=== PATIENT | female | born 1995 | race Caucasian/White ===

== ENCOUNTER 2017-04-28 19:25 | Emergency (ER) | payer SELFPAY ==
[2017-04-28 19:38] VITALS: BP 115/73
--- NOTE | 2017-04-28 20:41 | EDM.PDOC ---
ED HPI GENERAL MEDICAL PROBLEM - General Chief Complaint: ECG TECHNICIAN Problem Stated Complaint: DISCHARGE Time Seen by Provider: 04/28/17 19:45 Source of Information: Reports: Patient History Limitations: Reports: No Limitations - History of Present Illness INITIAL COMMENTS - FREE TEXT/NARRATIVE: 21-year-old female presents for evaluation and treatment of brown vaginal discharge. Patient reports that she first noted discharge about an hour prior to arrival in the ER. She estimates that it is around 1 teaspoon, maybe a little more. She reports that the first time she went she appreciates some brown discharge. She says the second time she wiped she appreciated more of a light pink discharge. She is proximally 9 weeks . She is a . Her blood type is O-. She denies any abdominal pain, cramping, dysuria, fevers, cold symptoms. Dr. Perez is her ECG TECHNICIAN. She had a Quant done on 04/13/17, which was [phone]. She also had an early OB ultrasound reports that everything looked okay. - Related Data Allergies Allergy/AdvReac Type Severity Reaction Status Date / Time amoxicillin [Amoxicillin] Allergy Hives Verified 04/28/17 19:38 Home Meds: Home Meds Vit W-Ca,Fe,FA(<1 mg) [ Vitamins] 1 each PO DAILY 12/02/15 [ History] Cephalexin [Keflex] 500 mg PO Q6HR #20 cap 04/28/17 [Rx] Past Medical History - Past Health History Medical/Surgical History: Denies Medical/Surgical History Psychiatric History: Reports: None - Past Surgical History HEENT Surgical History: Reports: Oral Surgery, Tonsillectomy Social & Family History - Tobacco Use Smoking Status *Q: Never Smoker Second Hand Smoke Exposure: No - Caffeine Use Caffeine Use: Reports: None - Recreational Drug Use Recreational Drug Use: No ED ROS GENERAL - Review of Systems Review Of Systems: See Below Constitutional: Denies: Fever Respiratory: Denies: Cough GI/Abdominal: Reports: Other. Denies: Abdominal Pain : Reports: Other (reports brown, red vaginal discharge). Denies: Dysuria ED EXAM - Physical Exam Exam: See Below Exam Limited By: No Limitations General Appearance: Alert, WD/WN, No Apparent Distress Respiratory/Chest: No Respiratory Distress, Lungs Clear, Normal Breath Sounds Cardiovascular: Normal Peripheral Pulses, Regular Rate, Rhythm, No Murmur GI/Abdominal Exam: Normal Bowel Sounds, Soft, Non-Tender (Female) Exam: Normal External Exam, Vaginal Discharge (white). No: Cervical Dilatation, Products of Conception, Vaginal Bleeding Heart Tones: Present Neurological: Alert, Oriented, Normal Cognition Psychiatric: Normal Affect, Normal Mood Skin Exam: Warm, Dry, Normal Color Course - Vital Signs Last Recorded V/S: Last Vital Signs Temp 36.2 C 04/28/17 19:36 Pulse 90 04/28/17 19:36 Resp 16 04/28/17 19:36 BP 115/73 04/28/17 19:36 Pulse Ox 100 04/28/17 19:36 - Orders/Labs/Meds Labs: Laboratory Tests 04/28/17 04/28/17 04/28/17 Range/Units 20:06 20:15 20:30 HCG, Quant 999847.0 mIU/mL Urine Color Yellow (Yellow) Urine Appearance Clear (Clear) Urine pH 6.0 (5.0-8.0) Ur Specific Smoot > or = 1.030 (1.005-1.030) Urine Protein Trace H (Negative) Urine Glucose (UA) Negative (Negative) Urine Ketones 3+ H (Negative) Urine Occult Blood Trace-intact H (Negative) Urine Nitrite Negative (Negative) Urine Bilirubin Negative (Negative) Urine Urobilinogen 2.0 H (0.2-1.0) Ur Leukocyte Esterase Trace H (Negative) Urine RBC 0-5 (0-5) /hpf Urine WBC 5-10 H (0-5) /hpf Ur Epithelial Cells 10-20 H (0-5) /hpf Urine Bacteria Many H (FEW) /hpf Urine Mucus Few (FEW) /hpf Blood Type O NEGATIVE Gel Antibody Screen Negative Rhogam Indicated Yes - Radiology Interpretation Free Text/Narrative:: Transvaginal ultrasound impression per Dr. Santiago: 1. single intrauterine gestation. Dates as noted above. 2. Heart activity is 172 bpm. - Re-Assessments/Exams Free Text/Narrative Re-Assessment/Exam: 04/28/17 22:47 I discussed the case with Dr. Stinson. He recommended I consult Dr. German, OB bell spinner sousaphones to see if we need to give Rhogram. I discussed the case with Dr. German. I informed her of her previous miscarriage and her current . She did not feel that we needed to give RhoGAM tonight. I informed the patinet of her wet prep, ultrasound and UA results. Wet prep showed no abnormalities. I will start her on some cephalexin for the urinary tract infection. I'll have follow-up with OB. Discharge instructions as documented. Departure - Departure Time of Disposition: 22:48 Disposition: Home, Self-Care 01 Condition: Good Clinical Impression: Urinary tract infection, Vaginal discharge during in first trimester - Discharge Information Prescriptions: Cephalexin [Keflex] 500 mg PO Q6HR #20 cap Instructions: Urinary Tract Infection, Adult Referrals: Carloz Perez MD [Primary Care Provider] - Forms: ED Department Discharge Additional Instructions: Take the Keflex 1 tab every 6 hours for 5 days. Recommend you are drinking plenty of fluids. Drink about half your body weight in ounces every day. Follow-up with your ECG TECHNICIAN provider early next week for recheck of your symptoms. Feel free to contract Dr. Perez's office tomorrow if you have any additional concerns about rhogram. Please return to the ER if your Symptoms change or worsen.
--- NOTE | 2017-04-28 21:41 | US ---
Addendum: Please ignore previous report, previous report is for older ultrasound. At time of dictation I did not have the current exam. Following is the corrected report. Dates: LMP: LMP given as 02/23/17, DISHA 11/30/17, gestational age 9 weeks 1 day Current ultrasound: DISHA 12/02/17, gestational age 8 weeks 6 days Single intrauterine gestation is seen. Amniotic fluid volume is normal. Embryo and yolk sac are seen. Small amount of free fluid is seen within the cul-de-sac. Minimal fluid is seen within the endocervical canal which is felt to be incidental. Maternal ovaries are seen and appear within normal limits. Measurements: [place]-rump length: 2.20 cm - 8 weeks 6 days Heart rate: 172 bpm Impression: 1. Single intrauterine gestation. Dates as noted above. 2. Heart activity is seen. Diagnostic code #2 --- Addendum1 above dictated on [04/28/2017 21:51] by [Tito Santiago, Alexandro Bishop] --- --- Addendum1 above signed on [04/28/2017 21:52] by [Tito Santiago, Alexandro Bishop] --- --- Original report below dictated on [04/28/2017 21:37] by [Tito Santiago, Alexandro Bishop] --- --- Original report below signed on [04/28/2017 21:37] by [Tito Santiago, Alexandro Bishop] --- First trimester obstetrical ultrasound: Multiple real-time images were obtained transvaginally. Comparison: No previous study. Dates: LMP: LMP given as 09/19/15, DISHA 06/25/16, gestational age 10 weeks 4 days Current ultrasound: DISHA 07/23/16, gestational age 6 weeks 4 days Single intrauterine gestation is seen. Embryo and yolk sac are seen. Debris is identified within the gestational sac. No heart activity is seen at this time. There is some fluid being seen within the endocervical canal. Small subchorionic hemorrhage is seen. Left maternal ovary is not seen. Right maternal ovary appears within normal limits. Measurements: [place]-rump length: 0.64 cm - 6 weeks 3 days Impression: 1. Single intrauterine gestation. Dates as noted above. 2. No heart activity is seen. Recommend follow-up study in 11 days if patient does not miscarry to further evaluate. 3. Other incidental findings as noted above. Diagnostic code #3 --- Addendum1 signed ---
== END 2017-04-28 22:58 | disposition home or self-care (01) ==
LOC: JD.ED 19:25
DX: O23.41 Unspecified infection of urinary tract in pregnancy, first trimester (principal); O99.89 Other specified diseases and conditions complicating pregnancy, childbirth and the puerperium; N89.8 Other specified noninflammatory disorders of vagina; Z88.1 Allergy status to other antibiotic agents; Z98.890 Other specified postprocedural states; Z3A.09 9 weeks gestation of pregnancy
CPT/HCPCS: 36415; 76817; 76817-26; 81001; 84702; 86850; 86900; 86901; 87086; 87210; 87808; 99284; 99284-25

== ENCOUNTER 2017-06-14 02:20 | Emergency (ER) | payer SELFPAY ==
[2017-06-14 02:35] VITALS: BP 111/68
[2017-06-14] MEDS ORDERED: Ondansetron 4 MG/2 ML SDV IVPUSH ONE (02:43)
[2017-06-14] MEDS ORDERED: Sodium Chloride 0.9% 500 ML IV ONE (02:43)
[2017-06-14] MEDS ORDERED: HYDROmorphone 0.5 MG/0.5 ML Syringe IVPUSH ONE (02:43)
[2017-06-14] MEDS ORDERED: Sodium Chloride 0.9% 10 ML Syringe FLUSH PRN (02:43)
--- NOTE | 2017-06-14 02:47 | EDM.PDOC ---
ED HPI GENERAL MEDICAL PROBLEM - General Chief Complaint: Abdominal Pain Stated Complaint: ABDOMINAL PAINS Time Seen by Provider: 06/14/17 02:35 Source of Information: Reports: Patient, RN Notes Reviewed - History of Present Illness INITIAL COMMENTS - FREE TEXT/NARRATIVE: 22-year-old female comes in after experiencing sudden onset of abdominal pain about one hour ago. Pain is been primarily upper mid abdomen but with radiation to her back. Awakened her from sleep. The pain initially was extremely severe associated with some nausea. She now has vomited twice while in to the ED with the discomfort somewhat less but still quite bothersome. She was feeling fine yesterday and last evening with no abdominal discomfort whatsoever. She is about 15 weeks . She is 2 para 1, is gone well for her so 4. No lower abdominal or pelvic pain cramping or bleeding. Epigastric Pain Score (Numeric/FACES): 8 - Related Data Allergies Allergy/AdvReac Type Severity Reaction Status Date / Time amoxicillin [Amoxicillin] Allergy Hives Verified 06/14/17 02:34 Home Meds: Home Meds Vit W-Ca,Fe,FA(<1 mg) [ Vitamins] 1 each PO DAILY 12/02/15 [ History] Past Medical History - Past Health History Medical/Surgical History: Denies Medical/Surgical History Psychiatric History: Reports: None - Past Surgical History HEENT Surgical History: Reports: Oral Surgery, Tonsillectomy Social & Family History - Tobacco Use Smoking Status *Q: Never Smoker Second Hand Smoke Exposure: No - Caffeine Use Caffeine Use: Reports: None - Recreational Drug Use Recreational Drug Use: No ED ROS GENERAL - Review of Systems Review Of Systems: See Below Constitutional: Denies: Fever, Chills HEENT: Reports: No Symptoms Respiratory: Denies: Shortness of Breath, Pleuritic Chest Pain Cardiovascular: Denies: Chest Pain GI/Abdominal: Reports: Abdominal Pain (Upper abdomen), Nausea, Vomiting. Denies : Diarrhea : Denies: Dysuria Musculoskeletal: Reports: Back Pain (Now better) Skin: Reports: No Symptoms Neurological: Reports: No Symptoms ED EXAM, GI/ABD - Physical Exam Exam: See Below General Appearance: Alert, Mild Distress Eyes: Bilateral: Normal Appearance Throat/Mouth: Normal Inspection, Normal Oropharynx Neck: Supple, Full Range of Motion Respiratory/Chest: No Respiratory Distress, Lungs Clear, Normal Breath Sounds Cardiovascular: Regular Rate, Rhythm GI/Abdominal Exam: Tender (Mild tenderness upper mid abdomen, abdomen otherwise soft and nontender). No: Guarding, Rebound Back Exam: No: CVA Tenderness (L), CVA Tenderness (R) Extremities: Normal Inspection, Normal Range of Motion Neurological: Alert, Oriented, No Motor/Sensory Deficits Skin Exam: Warm, Dry, Normal Color Course - Vital Signs Last Recorded V/S: Last Vital Signs Temp 98 F 06/14/17 02:31 Pulse 76 06/14/17 02:31 Resp 18 06/14/17 02:31 BP 111/68 06/14/17 02:31 Pulse Ox 100 06/14/17 02:31 - Orders/Labs/Meds Orders: Active Orders 24 hr Category Date Time Status Peripheral IV Care [RC] . DIRECTED Care 06/14/17 02:43 Active Sodium Chloride 0.9% [Saline Flush] Med 06/14/17 02:43 Active 10 ml FLUSH ASDIRECTED PRN Peripheral IV Insertion Adult [OM.PC] Stat Oth 06/14/17 02:43 Ordered Medication Orders Sodium Chloride (Saline Flush) 10 ml FLUSH ASDIRECTED PRN PRN Reason: Keep Vein Open Last Admin: 06/14/17 03:03 Dose: 10 ml Labs: Laboratory Tests 06/14/17 06/14/17 Range/Units 02:50 02:50 WBC 6.06 (3.98-10.04) K/mm3 RBC 4.15 (3.98-5.22) M/mm3 Hgb 11.8 (11.2-15.7) gm/L Hct 33.9 L (34.1-44.9) % MCV 81.7 (79.4-94.8) fl MCH 28.4 (25.6-32.2) pg MCHC 34.8 (32.2-35.5) g/dl RDW Std Deviation 40.0 (36.4-46.3) fL Plt Count 128 L (182-369) K/mm3 MPV 12.6 H (9.4-12.3) fl Neut % (Auto) 59.9 (34.0-71.1) % Lymph % (Auto) 31.0 (19.3-51.7) % [place] % (Auto) 7.9 (4.7-12.5) % Eos % (Auto) 0.8 (0.7-5.8) Baso % (Auto) 0.2 (0.1-1.2) % Neut # (Auto) 3.63 (1.56-6.13) K/mm3 Lymph # (Auto) 1.88 (1.18-3.74) K/mm3 [place] # (Auto) 0.48 H (0.24-0.36) K/mm3 Eos # (Auto) 0.05 (0.04-0.36) K/mm3 Baso # (Auto) 0.01 (0.01-0.08) K/mm3 Sodium 138 (136-145) mEq/L Potassium 3.6 (3.5-5.1) mEq/L Chloride 104 (98-107) mEq/L Carbon Dioxide 25 (21-32) mEq/L Anion Gap 12.6 (5-15) BUN 7 (7-18) mg/dL Creatinine 0.7 (0.55-1.02) mg/dL Est Cr Clr Drug Dosing 114.40 mL/min Estimated GFR (MDRD) > 60 (>60) mL/min BUN/Creatinine Ratio 10.0 L (14-18) Glucose 104 (74-106) mg/dL Calcium 8.9 (8.5-10.1) mg/dL Total Bilirubin 0.5 (0.2-1.0) mg/dL AST 18 (15-37) U/L ALT 18 (14-59) U/L Alkaline Phosphatase 57 (46-116) U/L Total Protein 6.3 L (6.4-8.2) g/dl Albumin 2.9 L (3.4-5.0) g/dl Globulin 3.4 gm/dL Albumin/Globulin Ratio 0.9 L (1-2) Lipase 108 (73-393) U/L Meds: Medications Generic Name Dose Route Start Last Admin Trade Name Freq PRN Reason Stop Dose Admin Sodium Chloride 10 ml 06/14/17 02:43 06/14/17 03:03 Saline Flush FLUSH 10 ml ASDIRECTED PRN Administration Keep Vein Open Discontinued Medications Generic Name Dose Route Start Last Admin Trade Name Freq PRN Reason Stop Dose Admin Hydromorphone HCl 0.25 mg 06/14/17 02:43 06/14/17 03:01 Dilaudid IVPUSH 06/14/17 02:44 0.25 mg ONETIME ONE Administration Sodium Chloride 500 mls @ 999 mls/hr 06/14/17 02:43 06/14/17 03:00 Normal Saline IV 06/14/17 03:13 999 mls/hr .BOLUS ONE Administration Ondansetron HCl 2 mg 06/14/17 02:43 06/14/17 03:00 Zofran IVPUSH 06/14/17 02:44 2 mg ONETIME ONE Administration - Re-Assessments/Exams Free Text/Narrative Re-Assessment/Exam: 06/14/17 03:44 Labs look good, pain is gone, nausea is gone, she feels tremendously better, discharge instructions as documented Departure - Departure Time of Disposition: 03:43 Disposition: Home, Self-Care 01 Condition: Fair Clinical Impression: Abdominal pain Qualifiers: Abdominal location: upper abdomen, unspecified Qualified Code(s): R10.10 - Upper abdominal pain, unspecified Vomiting Qualifiers: Vomiting type: unspecified Vomiting Intractability: non-intractable Nausea presence: with nausea Qualified Code(s): R11.2 - Nausea with vomiting, unspecified - Discharge Information Referrals: Carloz Perez MD [Primary Care Provider] - Forms: ED Department Discharge Additional Instructions: Clear liquids until this afternoon, than very careful bland diet as tolerated, follow-up clinic as needed, return to ED as needed if symptoms worsening in any way - My Orders Last 24 Hours: My Active Orders 06/14/17 02:43 Peripheral IV Care [RC] . DIRECTED Sodium Chloride 0.9% [Saline Flush] 10 ml FLUSH ASDIRECTED PRN Peripheral IV Insertion Adult [OM.PC] Stat - Assessment/Plan Last 24 Hours: My Active Orders 06/14/17 02:43 Peripheral IV Care [RC] . DIRECTED Sodium Chloride 0.9% [Saline Flush] 10 ml FLUSH ASDIRECTED PRN Peripheral IV Insertion Adult [OM.PC] Stat
== END 2017-06-14 03:54 | disposition home or self-care (01) ==
LOC: JD.ED 02:20
DX: R10.10 Upper abdominal pain, unspecified (principal); R11.2 Nausea with vomiting, unspecified; Z88.1 Allergy status to other antibiotic agents
CPT/HCPCS: 36415; 80053; 83690; 85025; 96361; 96374; 96375; 99284; J1170; J2405; J7040; J7050

== ENCOUNTER 2017-09-19 20:26 | Emergency (ER) | payer SELFPAY ==
[2017-09-19 20:36] VITALS: BP 101/72
--- NOTE | 2017-09-19 20:45 | EDM.PDOC ---
ED HPI GENERAL MEDICAL PROBLEM - General Chief Complaint: Lower Extremity Injury/Pain Stated Complaint: POSS KNEE INJURY Time Seen by Provider: 09/19/17 20:39 Source of Information: Reports: Patient History Limitations: Reports: No Limitations - History of Present Illness INITIAL COMMENTS - FREE TEXT/NARRATIVE: 22-year-old female presents the ED with an acute injury to her left knee. She reports she was just walking into the home when her 65 pound dog jumped or ran into her. Struck her from the lateral aspect of the knee causing a valgus strain of the left knee. This in turn knocked her to the fourth floor on her back. Injury occurred about a half or before arriving in the ED. Patient can partially wakeboard bare tippytoe walking on the left foot. Previous injuries or surgery to the left knee have occurred. Of note she is in the last trimester at 30 weeks gestation. Onset: Today Onset Date: 09/19/17 Onset Time: 20:15 Duration: Minutes: Location: Reports: Lower Extremity, Left (Left medial knee.) Quality: Reports: Ache, Throbbing Severity: Moderate Improves with: Reports: Rest Worsens with: Reports: Movement Context: Reports: Trauma (Knocked over by a large dog with that was running. Restraint the knee.). Denies: Activity, Exercise, Lifting, Sick Contact Associated Symptoms: Reports: No Other Symptoms Treatments PROCUREMENT ACCOUNTANT: Reports: Cold Therapy, Other (see below) Other Treatments PROCUREMENT ACCOUNTANT: tylenol Left Knee Pain Score (Numeric/FACES): 8 - Related Data Allergies Allergy/AdvReac Type Severity Reaction Status Date / Time amoxicillin [Amoxicillin] Allergy Hives Verified 06/14/17 02:34 Home Meds: Home Meds Vit W-Ca,Fe,FA(<1 mg) [ Vitamins] 1 each PO DAILY 12/02/15 [ History] oxyCODONE HCl/Acetaminophen [Percocet 5-325 mg Tablet] 1 - 2 each PO Q4H PRN # 12 tablet 09/19/17 [Rx] Past Medical History - Past Health History Medical/Surgical History: Denies Medical/Surgical History Psychiatric History: Reports: None - Past Surgical History HEENT Surgical History: Reports: Oral Surgery, Tonsillectomy Social & Family History - Tobacco Use Smoking Status *Q: Never Smoker Second Hand Smoke Exposure: No - Caffeine Use Caffeine Use: Reports: None - Recreational Drug Use Recreational Drug Use: No - Living Situation & Occupation Living situation: Reports: Occupation: Unemployed Review of Systems - Review of Systems Review Of Systems: See Below Constitutional: Denies: Chills, Diaphoresis, Fever, Weakness, Other Eyes: Reports: No Symptoms Ears: Reports: No Symptoms Nose: Reports: No Symptoms Mouth/Throat: Reports: No Symptoms Respiratory: Reports: No Symptoms Cardiovascular: Reports: No Symptoms GI/Abdominal: Reports: No Symptoms Genitourinary: Reports: No Symptoms Musculoskeletal: Reports: Other (Injury to the left knee. See history of present illness) Skin: Reports: No Symptoms Neurological: Reports: No Symptoms Psychiatric: Reports: No Symptoms ED EXAM, GENERAL - Physical Exam Exam: See Below Exam Limited By: No Limitations General Appearance: Alert, WD/WN, Mild Distress GI/Abdominal: Normal Bowel Sounds, Soft, Non-Tender, No Organomegaly, Other ( Patient is 30 weeks gestation and this correlates clinically with a fundus of the uterus 6 cm above the umbilicus.) Extremities: Other (Examination of the left lower extremity shows no effusion of the knee joint. Patellofemoral movement is normal. She is able to flex the knee but with difficulty and pain. You should ligaments appear to be intact. I was able to stress both the LCL and MCL ligaments in the straight leg position as well as 30 flexion. I could not open up the joint at all. Possible grade 1 strain of the MCL) Neurological: Alert (.), Oriented, CN II-XII Intact, Normal Cognition, Normal Gait Psychiatric: Normal Affect, Normal Mood Skin Exam: Warm, Dry, Intact, Normal Color, No Rash Course - Vital Signs Last Recorded V/S: Last Vital Signs Temp 36.9 C 09/19/17 20:35 Pulse 89 09/19/17 20:35 Resp 20 09/19/17 20:35 BP 101/72 09/19/17 20:35 Pulse Ox 100 09/19/17 20:35 - Orders/Labs/Meds Orders: Active Orders 24 hr Category Date Time Status Knee 3V Lt [CR] Stat Exams 09/19/17 20:42 Taken Durable Medical Equipment for Discharge [DME for Oth 09/19/17 21:07 Ordered Discharge] [COMM] Stat Meds: Medications Discontinued Medications Generic Name Dose Route Start Last Admin Trade Name Freq PRN Reason Stop Dose Admin Oxycodone/Acetaminophen 2 tab 09/19/17 21:05 Percocet 325-5 Mg PO 09/19/17 21:06 ONETIME ONE - Radiology Interpretation Free Text/Narrative:: 22-year-old female who is in the third trimester at 30 weeks gestation presents the ED with an acute injury to her left knee. She states she was entering her home when large 65 pound dog came jumping at her at a run. He struck her in the lateral aspect of the left knee causing a valgus strain to the medial knee. This caused her to twist and fall to the floor on her back. Since then she's had trouble weightbearing can tippytoe weight-bear only on the left side. Previous injuries to the left knee or surgeries. Examination reveals no traumatic effusion at this time. Ligaments both and LCL ,MCL and cruciates appear to be intact initial examination. Since was a twisting motion to the fall x-ray of her knee will be obtained to rule out any fracture to the tibial plateau. - Re-Assessments/Exams Free Text/Narrative Re-Assessment/Exam: 09/19/17 21:13 x-rays of the left knee are normal with no sign of bony injuries or effusion. Treatment will be conservative with non weightbearing crutch walking for the next 3-5 days. Knee immobilizer on during the day and off at night. Suggest use of crutches for 3-5 days and then see how you get along with the brace only. After 10 days may try and walk without the brace and see how you do I suspect he will do quite well. Tylenol for pain relief 650 mg every 6 hours when necessary for Percocet 5/3/25 milligram tablet 1 tablet every 6 hours needed for pain relief not controlled by Tylenol alone. 12 tablets provided. Follow-up with Dr. Monteiro if not better in 14 days time Departure - Departure Time of Disposition: 21:04 Disposition: Home, Self-Care 01 Condition: Fair Clinical Impression: Sprain of medial collateral ligament of left knee - Discharge Information Prescriptions: oxyCODONE HCl/Acetaminophen [Percocet 5-325 mg Tablet] 1 - 2 each PO Q4H PRN # 12 tablet PRN Reason: pain relief. Referrals: Fidelina Walker MD [Primary Care Provider] - Forms: ED Department Discharge Additional Instructions: Evaluation the emergent tonight in regards to acute injury to the left knee that occurred due to a valgus strain of the knee with a large dog struck Q running. Examination suggests that it stretched the medial collateral ligament but did not tear it. This is called a grade 1 strain. X-rays of the knee also proved to be negative for any bony injuries. Is time to heal with elevation of the leg is much as possible for the next 2-3 days. Ice pack to the area for one half hour out of every 4 hours for the next 2 days. You cannot use Motrin or Aleve due to being . May use Tylenol for pain relief and if needed may use Percocet tablet 5/325 milligram tablet one every 4-6 hours as needed for pain relief for the next 3-4 days. Likely be 10-14 days to heal completely. Suggest crutch walking nonweightbearing till able to weight-bear comfortably with only the brace. Brace will likely be required for about 10 days. After that may try and go without the brace and see how you do. If any problem's occur follow-up with Dr. Monteiro orthopedic surgeon [facility] other side of the hospital. His phone number is [phone] if you need to arrange an appointment. - My Orders Last 24 Hours: My Active Orders 09/19/17 20:42 Knee 3V Lt [CR] Stat 09/19/17 21:07 Durable Medical Equipment for Discharge [DME for Discharge] [COMM] Stat - Assessment/Plan Last 24 Hours: My Active Orders 09/19/17 20:42 Knee 3V Lt [CR] Stat 09/19/17 21:07 Durable Medical Equipment for Discharge [DME for Discharge] [COMM] Stat
[2017-09-19] MEDS ORDERED: Acetaminophen/oxyCODONE 325-5 MG Tab PO ONE (21:05)
--- NOTE | 2017-09-20 07:57 | CR ---
Left knee: Three views of the left knee were obtained. Comparison: No prior knee exam. Medial and lateral joint spaces are preserved. No joint effusion is seen. No fracture or other abnormality is identified. Patellofemoral joint appears within normal limits. Impression: 1. No abnormality is identified on three-view left knee exam. Diagnostic code #1
== END 2017-09-19 21:46 | disposition home or self-care (01) ==
LOC: JD.ED 20:26
DX: O9A.213 Injury, poisoning and certain other consequences of external causes complicating pregnancy, third trimester (principal); S83.412A Sprain of medial collateral ligament of left knee, initial encounter; Z88.1 Allergy status to other antibiotic agents; Z3A.30 30 weeks gestation of pregnancy; W54.1XXA Struck by dog, initial encounter
CPT/HCPCS: 73562; 99283; A9270

== ENCOUNTER 2017-10-06 19:13 | Observation (INO) | payer MEDICAID, OTHER ==
[2017-10-06] MEDS ORDERED: Lactated Ringers 1,000 ML IV ONE (20:15)
[2017-10-06] MEDS ORDERED: Ondansetron 4 MG Tab.DIS PO ONE (20:26)
[2017-10-06] MEDS ORDERED: Nalbuphine 20 MG/1 ML Amp IVPUSH PRN (20:55)
--- NOTE | 2017-10-06 21:12 | PCM.LDHP ---
L&D History of Present Illness - General Date of Service: 10/06/17 Admit Problem/Dx: Patient Status Order with Admit Dx/Problem 10/06/17 19:55 Patient Status [ADT] Routine Admission Diagnosis/Problem Admission Diagnosis/Problem Source of Information: Patient History Limitations: Reports: No Limitations - History of Present Illness Introduction:: This patient presented to L and D with intermittent, colicky pain in the left flank that has persisted for several hours. She has noted difficulty with urination including symptoms such as pain, burning, decreased production of urine, and cloudiness of urine. She has had accompanying nausea and vomiting due to the pain. Improves with: Reports: None Associated Symptoms: Denies: vaginal bleeding, vaginal discharge - Related Data Allergies/Adverse Reactions: Allergies Allergy/AdvReac Type Severity Reaction Status Date / Time amoxicillin [Amoxicillin] Allergy Hives Verified 06/14/17 02:34 Home Medications: Home Meds Vit W-Ca,Fe,FA(<1 mg) [ Vitamins] 1 each PO DAILY 12/02/15 [ History] oxyCODONE HCl/Acetaminophen [Percocet 5-325 mg Tablet] 1 - 2 each PO Q4H PRN # 12 tablet 09/19/17 [Rx] Past Medical History - Past Health History Medical/Surgical History: Denies Medical/Surgical History Psychiatric History: Reports: None - Past Surgical History HEENT Surgical History: Reports: Oral Surgery, Tonsillectomy Social & Family History - Tobacco Use Smoking Status *Q: Never Smoker Second Hand Smoke Exposure: No - Caffeine Use Caffeine Use: Reports: None - Recreational Drug Use Recreational Drug Use: No - Living Situation & Occupation Living situation: Reports: Occupation: Unemployed L&D Exam - Vital Signs Weight: 191 lb - Patient Data Lab Results Last 24 hrs: Laboratory Results - last 24 hr 10/06/17 Range/Units 20:40 Urine Color Yellow (Yellow) Urine Appearance Cloudy H (Clear) Urine pH 6.0 (5.0-8.0) Ur Specific [place] > or = 1.030 (1.005-1.030) Urine Protein 1+ H (Negative) Urine Glucose (UA) Negative (Negative) Urine Ketones Trace H (Negative) Urine Occult Blood 2+ H (Negative) Urine Nitrite Negative (Negative) Urine Bilirubin 1+ H (Negative) Urine Urobilinogen 1.0 (0.2-1.0) Ur Leukocyte Esterase 1+ H (Negative) Orders Last 24hrs: Active Orders 24 hr Category Date Time Status Patient Status [ADT] Routine ADT 10/06/17 19:55 Active Non Stress Test [RC] PER UNIT ROUTINE Care 10/06/17 19:55 Active Vital Signs [RC] PER UNIT ROUTINE Care 10/06/17 19:55 Active FIBRONECTIN Routine Lab 10/06/17 20:40 Received GROUP B STREP BY PCR [MOLEC] Routine Lab 10/06/17 20:40 Received UA W/MICROSCOPIC [URIN] Routine Lab 10/06/17 20:40 Ordered Lactated Ringers [Ringers, Lactated] 1,000 ml Med 10/06/17 21:00 Active IV ASDIRECTED Lactated Ringers [Ringers, Lactated] 1,000 ml Med 10/06/17 20:15 Active IV ONETIME Nalbuphine [Nubain] Med 10/06/17 20:55 Active 10 mg IVPUSH Q4H PRN Resuscitation Status Routine Resus Stat 10/06/17 19:55 Ordered Medication Orders Lactated Ringer's (Ringers, Lactated) 1,000 mls @ 150 mls/hr IV ASDIRECTED JORGE A Lactated Ringer's (Ringers, Lactated) 800 mls @ 799.112 mls/hr IV ONETIME ONE Stop: 10/06/17 21:15 Nalbuphine HCl (Nubain) 10 mg IVPUSH Q4H PRN PRN Reason: Pain
[2017-10-06] MEDS: Lactated Ringers 1,000 ML IV SCH (21:35)
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
[2017-10-06] MEDS: Ondansetron 4 MG/2 ML SDV IVPUSH SCH (22:55)
[2017-10-07] MEDS ORDERED: Nitrofurantoin Monohydrate/Macrocrystalline 100 MG Cap PO SCH
[2017-10-07] MEDS: Nalbuphine 20 MG/1 ML Amp IVPUSH PRN ×3 (01:05→06:03)
[2017-10-07] MEDS: Ondansetron 4 MG/2 ML SDV IVPUSH SCH ×2 (03:34→06:58)
[2017-10-07] MEDS: Lactated Ringers 1,000 ML IV SCH ×2 (03:36→08:49)
[2017-10-07] MEDS ORDERED: Ondansetron 4 MG/2 ML SDV IVPUSH PRN (08:29)
[2017-10-07] MEDS ORDERED: Ondansetron 4 MG Tab.DIS PO PRN (10:31)
[2017-10-07] MEDS: Acetaminophen/oxyCODONE 325-5 MG Tab PO PRN ×2 (10:40→15:28)
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
--- NOTE | 2017-10-07 14:55 | PCM.DCSUM1 ---
Discharge Summary - Hospital Course Free Text/Narrative:: Julia is a 22-year-old 1 para 0 white female presently at 32-2/7 weeks today. She is admitted for observation last evening with complaints of back pain and was found to have a urinalysis consistent with probable kidney stone. She has history of kidney stones prior to . This passed naturally. The at this time has had pain controlled very well with initially Nubain and Percocet. She was started on Macrobid because of fibroid blood cells private per field and a urinalysis. heart tones were reassuring and NST has been reactive. She's had occasional contractions. Upon admission she was evaluated with fibronectin which was positive. Her cervix was closed on evaluation and she has not had any significant contractions To this point. The contractions that are showing up on the monitor are not felt by the patient. She 's had no vaginal bleeding or vaginal fluid loss. At this point to urine has been strained but no stones were then collected. She is interested in going home. - Discharge Data Discharge Date: 10/07/17 Discharge Disposition: DC/Tfer to Other 70 Condition: Good - Patient Instructions Diet: Regular Diet as Tolerated Activity: As Tolerated (No intercourse or tampons.) Driving: Do Not Drive Showering/Bathing: May Shower (May take a bath) Notify Provider of: Fever, Increased Pain, Swelling and Redness, Nausea and/or Vomiting - Discharge Plan Home Medications: Home Meds Vit W-Ca,Fe,FA(<1 mg) [ Vitamins] 1 each PO DAILY 12/02/15 [ History] oxyCODONE HCl/Acetaminophen [Percocet 5-325 mg Tablet] 1 - 2 each PO Q4H PRN # 12 tablet 09/19/17 [Rx] Nitrofurantoin Monohyd/M-Cryst [IJD: Nitrofurantoin [place]-MCR] 100 mg PO BEDTIME capsule 10/07/17 [Rx] Referrals: Carloz Perez MD [Physician] - (Return to clinicDr. Casanova scheduled on 10/11/2017) - Discharge Summary/Plan Comment DC Time >30 min.: No Discharge Summary/Plan Comment: Discharge instructions: 1. Discharge home 2. Diet, activity and follow-up discussed with patient. 3. Precautions given concern increased pain, bleeding, contractions, temperature , signs/symptoms of DVT/PE. 4. Medications per home medication was printed, discussed with and given to the patient. 5. Return to clinic-Dr. Perez[facility] in 4 days. Diagnosis: 32-2/7 week intrauterine , renal lithiasis, UTI Condition: Good - Patient Data Vitals - Most Recent: Last Vital Signs Temp 36.9 C 10/07/17 08:00 Pulse 80 10/07/17 11:16 Resp 19 10/07/17 11:16 BP 105/76 10/07/17 11:16 Pulse Ox 97 10/07/17 11:16 Weight - Most Recent: 86.636 kg I&O - Last 24 hours: Intake & Output 10/06/17 10/07/17 10/07/17 22:59 06:59 14:59 Intake Total 2800 Balance 2800 Lab Results - Last 24 hrs: Laboratory Results - last 24 hr 10/06/17 10/06/17 Range/Units 20:40 20:40 Urine Color Yellow (Yellow) Urine Appearance Cloudy H (Clear) Urine pH 6.0 (5.0-8.0) Ur Specific Norris > or = 1.030 (1.005-1.030) Urine Protein 1+ H (Negative) Urine Glucose (UA) Negative (Negative) Urine Ketones Trace H (Negative) Urine Occult Blood 2+ H (Negative) Urine Nitrite Negative (Negative) Urine Bilirubin 1+ H (Negative) Urine Urobilinogen 1.0 (0.2-1.0) Ur Leukocyte Esterase 1+ H (Negative) Urine RBC 5-10 H (0-5) /hpf Urine WBC 0-5 (0-5) /hpf Ur Epithelial Cells 40-50 H (0-5) /hpf Urine Bacteria Moderate H (FEW) /hpf Urine Mucus Many H (FEW) /hpf Fibronectin Positive Med Orders - Current: Current Medications Lactated Ringer's (Ringers, Lactated) 1,000 mls @ 150 mls/hr IV ASDIRECTED JORGE A Last Admin: 10/07/17 08:49 Dose: 150 mls/hr Nalbuphine HCl (Nubain) 10 mg IVPUSH Q2H PRN PRN Reason: Pain (severe 7-10) Last Admin: 10/07/17 06:03 Dose: 10 mg Nitrofurantoin Macrocrystals (Macrobid) 100 mg PO BEDTIME JORGE A Last Admin: 10/07/17 01:00 Dose: 100 mg Ondansetron HCl (Zofran Odt) 4 mg PO Q4H PRN PRN Reason: Nausea/Vomiting Oxycodone/Acetaminophen (Percocet 325-5 Mg) 2 tab PO Q4H PRN PRN Reason: Pain Last Admin: 10/07/17 10:40 Dose: 2 tab Discontinued Medications Lactated Ringer's (Ringers, Lactated) 800 mls @ 799.112 mls/hr IV ONETIME ONE Stop: 10/06/17 21:15 Last Admin: 10/06/17 20:20 Dose: 799.112 mls/hr Nalbuphine HCl (Nubain) 10 mg IVPUSH Q4H PRN PRN Reason: Pain Last Admin: 10/06/17 21:35 Dose: 10 mg Ondansetron HCl (Zofran Odt) 4 mg PO ONETIME ONE Stop: 10/06/17 20:27 Last Admin: 10/06/17 20:29 Dose: 4 mg Ondansetron HCl (Zofran) 4 mg IVPUSH Q4H JORGE A Last Admin: 10/07/17 06:58 Dose: Not Given Ondansetron HCl (Zofran) 4 mg IVPUSH Q4H PRN PRN Reason: Nausea/Vomiting
[2017-10-07 15:50] VITALS: BP 104/61
== END 2017-10-07 15:30 | disposition other institution (70) ==
LOC: JD.OBCHECK 19:13 → JD.OB 19:14 → JD.OBCHECK 10-07 10:35 → JD.OB 10-07 10:36
PROVIDERS: ADMIT Obstetrics & Gynecology; ATTEND Obstetrics & Gynecology
DX: O23.43 Unspecified infection of urinary tract in pregnancy, third trimester (principal); O26.833 Pregnancy related renal disease, third trimester; N20.0 Calculus of kidney; Z87.442 Personal history of urinary calculi; Z3A.32 32 weeks gestation of pregnancy; Z79.899 Other long term (current) drug therapy; Z88.1 Allergy status to other antibiotic agents
CPT/HCPCS: 59025; 81001; 82731; 87653; 96361; 96374; 96375; 96376; A9270; G0378; J2300; J2405; J7120

== ENCOUNTER 2017-11-12 22:21 | Inpatient (IN) | payer SELFPAY ==
[2017-11-12] MEDS ORDERED: Sodium Chloride 0.9% 10 ML Syringe FLUSH PRN (23:08)
[2017-11-12] MEDS ORDERED: Lidocaine 1% 50 ML MDV INJECT PRN (23:08)
[2017-11-12] MEDS ORDERED: Ondansetron 4 MG/2 ML SDV IVPUSH PRN (23:08)
[2017-11-12] MEDS ORDERED: Nalbuphine 20 MG/1 ML Amp IVPUSH PRN (23:08)
[2017-11-12] MEDS ORDERED: Oxytocin/Lactated Ringers 10 UNIT/1,000 ML BAG IV SCH (23:15)
[2017-11-12] MEDS: Lactated Ringers 1,000 ML IV SCH (23:25)
[2017-11-13] MEDS: Lactated Ringers 1,000 ML IV SCH ×3 (00:06→06:29)
[2017-11-13] MEDS ORDERED: diphenhydrAMINE 50 MG/ML SDV IVPUSH PRN (02:10)
[2017-11-13] MEDS ORDERED: fentaNYL 100 MCG/2 ML SDV EPIDUR PRN (02:10)
[2017-11-13] MEDS ORDERED: ePHEDrine 50 MG/ML SDV IVPUSH PRN (02:10)
[2017-11-13] MEDS: Bupivacaine/fentaNYL/NS 100 ML Bag EPIDUR SCH ×3 (02:46→19:55)
--- NOTE | 2017-11-13 02:54 | PCM.PREANE ---
Preanesthetic Assessment - Anesthesia/Transfusion/Family Hx Anesthesia History: Prior Anesthesia Without Reaction Family History of Anesthesia Reaction: No Transfusion History: No Prior Transfusion(s) - Review of Systems General: No Symptoms Pulmonary: No Symptoms Cardiovascular: No Symptoms Gastrointestinal: No Symptoms Neurological: No Symptoms Other: Reports: None - Physical Assessment Pulse: 86 O2 Sat by Pulse Oximetry: 98 Respiratory Rate: 16 Blood Pressure: 122/86 Temperature: 36.3 C Vital Signs: Last Vital Signs Temp 36.7 C 11/12/17 23:08 Pulse 89 11/12/17 23:08 Resp 16 11/12/17 23:08 BP 116/77 11/12/17 23:08 Pulse Ox 98 11/12/17 23:08 Height: 1.65 m Weight: 85.956 kg ASA Class: 2 Mental Status: Alert & Oriented x3 Airway Class: Mallampati = 1 Dentition: Reports: Normal Dentition Thyro-Mental Finger Breadths: 3 Mouth Opening Finger Breadths: 3 ROM/Head Extension: Full Lungs: Clear to Auscultation, Normal Respiratory Effort Cardiovascular: Regular Rate, Regular Rhythm - Lab Values: Laboratory Last Values WBC 6.26 K/mm3 (3.98-10.04) 11/12/17 23:40 RBC 3.69 M/mm3 (3.98-5.22) L 11/12/17 23:40 Hgb 9.9 gm/L (11.2-15.7) L 11/12/17 23:40 Hct 30.3 % (34.1-44.9) L 11/12/17 23:40 MCV 82.1 fl (79.4-94.8) 11/12/17 23:40 MCH 26.8 pg (25.6-32.2) 11/12/17 23:40 MCHC 32.7 g/dl (32.2-35.5) 11/12/17 23:40 RDW Std Deviation 39.1 fL (36.4-46.3) 11/12/17 23:40 Plt Count 101 K/mm3 (182-369) L 11/12/17 23:40 Neut % (Auto) 62.5 % (34.0-71.1) 11/12/17 23:40 Lymph % (Auto) 26.2 % (19.3-51.7) 11/12/17 23:40 Maury % (Auto) 9.9 % (4.7-12.5) 11/12/17 23:40 Eos % (Auto) 1.0 (0.7-5.8) 11/12/17 23:40 Baso % (Auto) 0.2 % (0.1-1.2) 11/12/17 23:40 Neut # (Auto) 3.92 K/mm3 (1.56-6.13) 11/12/17 23:40 Lymph # (Auto) 1.64 K/mm3 (1.18-3.74) 11/12/17 23:40 Maury # (Auto) 0.62 K/mm3 (0.24-0.36) H 11/12/17 23:40 Eos # (Auto) 0.06 K/mm3 (0.04-0.36) 11/12/17 23:40 Baso # (Auto) 0.01 K/mm3 (0.01-0.08) 11/12/17 23:40 Manual Slide Review Normal smear 11/12/17 23:40 Membrane Rupture Positive H 11/12/17 22:40 - Allergies Allergies/Adverse Reactions: Allergies Allergy/AdvReac Type Severity Reaction Status Date / Time amoxicillin [Amoxicillin] Allergy Hives Verified 10/15/17 20:57 - Anesthesia Plan Pre-Op Medication Ordered: None - Acknowledgements Anesthesia Type Planned: Epidural Pt an Appropriate Candidate for the Planned Anesthesia: Yes Alternatives and Risks of Anesthesia Discussed w Pt/Guardian: Yes Pt/Guardian Understands and Agrees with Anesthesia Plan: Yes PreAnesthesia Questionnaire - Past Health History Medical/Surgical History: Denies Medical/Surgical History Respiratory History: Reports: None Gastrointestinal History: Reports: None, GERD, Other (See Below) Other Gastrointestinal History: GI upset/diarrhea 1 week ago, no fever, no further issue Genitourinary History: Reports: Renal Calculus, UTI, 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: , 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 Musculoskeletal History: Reports: None Neurological History: Reports: None Psychiatric History: Reports: None Endocrine/Metabolic History: Reports: None Hematologic History: Reports: Other (See Below) Other Hematologic History: Low platelets Immunologic History: Reports: None Oncologic (Cancer) History: Reports: None Dermatologic History: Reports: None - Infectious Disease History Infectious Disease History: Reports: None - Past Surgical History Head Surgeries/Procedures: Reports: None HEENT Surgical History: Reports: Oral Surgery, Tonsillectomy Cardiovascular Surgical History: Reports: None - SUBSTANCE USE Smoking Status *Q: Never Smoker Tobacco Use Within Last Twelve Months: No Second Hand Smoke Exposure: No Recreational Drug Use History: No - HOME MEDS Home Medications: Home Meds Vit W-Ca,Fe,FA(<1 mg) [ Vitamins] 1 each PO DAILY 12/02/15 [ History] Ferrous Sulfate [Slow Release Iron] 142 mg PO DAILY 10/21/17 [History] Nitrofurantoin Monohyd/M-Cryst [Macrobid 100 mg Capsule] 100 mg PO BID #10 capsule 11/08/17 [Rx] - CURRENT (IN HOUSE) MEDS Current Meds: Current Medications Diphenhydramine HCl (Benadryl) 25 mg IVPUSH Q6H PRN PRN Reason: Itching Ephedrine Sulfate (Ephedrine Sulfate) 5 mg IVPUSH ASDIRECTED PRN PRN Reason: HYPOTENTSION Fentanyl (Sublimaze) 100 mcg EPIDUR Q3H PRN PRN Reason: PAIN Last Admin: 11/13/17 02:46 Dose: 100 mcg Fentanyl/Bupivacaine HCl (Fentanyl/Bupivacaine/Ns 2 Mcg-0.125% 100 Ml) 100 ml EPIDUR ASDIRECTED JORGE A Last Admin: 11/13/17 02:46 Dose: 100 ml Lactated Ringer's (Ringers, Lactated) 1,000 mls @ 100 mls/hr IV ASDIRECTED JORGE A Last Admin: 11/13/17 00:06 Dose: 900 mls/hr Oxytocin/Lactated Ringer's (Pitocin In Lr 10 Units/1,000 Ml) 10 unit in 1,000 mls @ 500 mls/hr IV .CONTINUOUS JORGE A; Protocol Lidocaine HCl (Xylocaine 1%) 50 ml INJECT ONETIME PRN PRN Reason: Pain Nalbuphine HCl (Nubain) 10 mg IVPUSH Q2H PRN PRN Reason: Pain (moderate 4-6) Last Admin: 11/13/17 00:03 Dose: 10 mg Ondansetron HCl (Zofran) 4 mg IVPUSH Q4H PRN PRN Reason: Nausea/Vomiting Sodium Chloride (Saline Flush) 10 ml FLUSH ASDIRECTED PRN PRN Reason: Keep Vein Open
[2017-11-13] MEDS ORDERED: Oxytocin/Lactated Ringers 10 UNIT/1,000 ML BAG IV SCH (03:30)
--- NOTE | 2017-11-13 06:37 | PCM.LDHP ---
L&D History of Present Illness - General Date of Service: 11/13/17 Admit Problem/Dx: Patient Status Order with Admit Dx/Problem 11/12/17 23:08 Patient Status [ADT] Routine Admission Diagnosis/Problem Admission Diagnosis/Problem 11/13/17 06:23 37-4/7 week intrauterine , spontaneous rupture membranes, active labor Source of Information: Patient History Limitations: Reports: No Limitations - History of Present Illness Introduction:: Lisa is a 22-year-old para 0010 white female with an DISHA of 2017 was admitted on 11/13/2017 in active labor with spontaneous rupture membranes. She has changed her cervix from 3 cm to 5 cm. She has gross rupture of membranes with clear amniotic fluid resulting. heart tones are reassuring. Contractions initially were every 3-5 minutes but slow somewhat after epidural analgesia was initiated. history: 2 para 0010 at 37-4/7 weeks gestational age. DISHA of determined by certain last menstrual period starting 02/23/2017 supported by numerous ultrasounds including one done on 05/05/2017 at 10-1/7 weeks gestational age and one done on 07/21/2017 at 21-5/7 weeks gestational age. During the course of the on numerous occasions in the clinic and in labor and delivery. She has had a history of contractions and was actually transferred to [place], [place] on 2 occasions because of labor and positive fibronectin tests. She has reported decreased activity, contractions and abdominal pain in varying ratios on numerous occasions when evaluated in labor and delivery and in clinic. At this time she is feeling contractions. Her course otherwise shows a first visit on 05/05/2017 at 10-1 /7 weeks. She was seen on a very regular basis. Her weight increased from 172 pounds up to 186 pounds for a 14 pound weight gain. Her vital signs remained stable throughout the course and her fundal height growth was appropriate. She had at least 2 urinary tract infections during the course of her also. She declined flu vaccine. [place] depression screening on 07/26/2017 showed a score of 4/30normal. Patient also had some renal lithiasis during the course the . She is Rh- and did receive RhoGAM during the on 09/15/2017.. Platelets were decreased later in the . Previous resulted in a miscarriage at 6 weeks gestational age on 12/03/2015. laboratory testing shows a blood type of O-. Rh antibody screen was negative. First labs showed hemoglobin 12.7 and platelets of 150,000. She is rubella immune. RPR is nonreactive. Urine culture initially showed no evidence of infection. Hepatitis B surface antigen and HIV assays were both negative. Chlamydia and gonorrhea assays were both negative. Second trimester labs showed hemoglobin 11.9 g/dL. Her platelets are 130,000. Her 1 hour GTT was normal at 113. Initial evaluation showed group B strep positive but this was an erroneous result and was changed to negative by the laboratory. Allergies amoxicillin which causes hives Medications: 1. Ferrous sulfate 325 mg per day 2. vitamins daily Family history: positive for mother and father are alive and well. Other with history of DVT. Mother with history of diabetes mellitus, depression, hypothyroidism, migraine headache, hypercholesterolemia, multiple spontaneous abortions. One brother alive with hypertension history. Maternal grandmother secondary to heart disease and diabetes mellitus. Maternal grandfather secondary to L Pa thyroid cancer. Paternal grandmother alive and well. Paternal grandfather with dementia. No other problems noted. No bleeding, anesthesia or blood clotting problems noted. 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 She lives in [facility] with her . She does not use any significant amounts of alcohol, drugs or tobacco. Review of systems: In general patient has multiple complaints including headache abdominal pain contractions loss of vaginal fluid and decreased activity. Skin: Negative HEENT: Negative Cardiovascular: No chest pain or exercise intolerance Respiratory: No shortness of breath or infectious symptoms Breasts: No concerns. Changes associated with . Patient plans to bottlefeed. GI: Negative : Changes associated with with contractions being felt by the patient. Musculoskeletal: Swelling in lower extremities bilaterally on occasion. Neurological: Negative Physical exam: Patient is well-developed, well-nourished, pleasant female stated age in no acute distress. She has multiple concerns that are mild. Blood pressure on last evaluation clinic on 11/09/2017 was 110/68. Weight was 100s 86.8 with a pregravid weight 172. Height is 5 feet 4. Body mass index prepregnancy was 30.4. Her heart rate was 132. Skin is warm and dry without lesions. HEENT neck and back within normal limits Lungs are clear with good breath sounds in all lung rodriguez. Cardiovascular exam shows regular and rhythm. Breast exam is deferred having been done at first visit and found to be normal. Patient plans to bottlefeed. Abdomen is protuberant with last fundal height in clinic at 37 cm. Baby in vertex presentation by Saman's. Cervical exam shows cervix at 4+ centimeters, 90% effaced, soft, mid position, 0 station, cephalic presentation. Interior pressure transducer was placed without problems. Extremities and neurological exam are grossly within normal limits. Pain Score: 10 - Related Data Allergies/Adverse Reactions: Allergies Allergy/AdvReac Type Severity Reaction Status Date / Time amoxicillin [Amoxicillin] Allergy Hives Verified 10/15/17 20:57 Home Medications: Home Meds Vit W-Ca,Fe,FA(<1 mg) [ Vitamins] 1 each PO DAILY 12/02/15 [ History] Ferrous Sulfate [Slow Release Iron] 142 mg PO DAILY 10/21/17 [History] Nitrofurantoin Monohyd/M-Cryst [Macrobid 100 mg Capsule] 100 mg PO BID #10 capsule 11/08/17 [Rx] Past Medical History - Past Health History Medical/Surgical History: Denies Medical/Surgical History Respiratory History: Reports: None Gastrointestinal History: Reports: None, GERD, Other (See Below) Other Gastrointestinal History: GI upset/diarrhea 1 week ago, no fever, no further issue Genitourinary History: Reports: Renal Calculus, UTI, 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: , 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 Musculoskeletal History: Reports: None Neurological History: Reports: None Psychiatric History: Reports: None Endocrine/Metabolic History: Reports: None Hematologic History: Reports: Other (See Below) Other Hematologic History: Low platelets Immunologic History: Reports: None Oncologic (Cancer) History: Reports: None Dermatologic History: Reports: None - Infectious Disease History Infectious Disease History: Reports: None - Past Surgical History Head Surgeries/Procedures: Reports: None HEENT Surgical History: Reports: Oral Surgery, Tonsillectomy Cardiovascular Surgical History: Reports: None Social & Family History - Family History Family Medical History: Noncontributory - Tobacco Use Smoking Status *Q: Never Smoker Second Hand Smoke Exposure: No - Caffeine Use Caffeine Use: Reports: None Other Caffeine Use: Occasional - Recreational Drug Use Recreational Drug Use: No - Living Situation & Occupation Living situation: Reports: Occupation: Unemployed H&P Review of Systems - Review of Systems: Review Of Systems: See Below L&D Exam - Exam Exam: See Below - Vital Signs Vital Signs: Last Vital Signs Temp 36.3 C 11/13/17 02:53 Pulse 86 11/13/17 02:53 Resp 16 11/13/17 02:53 BP 122/86 11/13/17 02:53 Pulse Ox 98 11/13/17 02:53 Weight: 85.956 kg - Patient Data Lab Results Last 24 hrs: Laboratory Results - last 24 hr 11/12/17 11/12/17 Range/Units 22:40 23:40 WBC 6.26 (3.98-10.04) K/mm3 RBC 3.69 L (3.98-5.22) M/mm3 Hgb 9.9 L (11.2-15.7) gm/L Hct 30.3 L (34.1-44.9) % MCV 82.1 (79.4-94.8) fl MCH 26.8 (25.6-32.2) pg MCHC 32.7 (32.2-35.5) g/dl RDW Std Deviation 39.1 (36.4-46.3) fL Plt Count 101 L (182-369) K/mm3 Neut % (Auto) 62.5 (34.0-71.1) % Lymph % (Auto) 26.2 (19.3-51.7) % Toole % (Auto) 9.9 (4.7-12.5) % Eos % (Auto) 1.0 (0.7-5.8) Baso % (Auto) 0.2 (0.1-1.2) % Neut # (Auto) 3.92 (1.56-6.13) K/mm3 Lymph # (Auto) 1.64 (1.18-3.74) K/mm3 Toole # (Auto) 0.62 H (0.24-0.36) K/mm3 Eos # (Auto) 0.06 (0.04-0.36) K/mm3 Baso # (Auto) 0.01 (0.01-0.08) K/mm3 Manual Slide Review Normal smear Membrane Rupture Positive H Result Diagrams: 11/12/17 23:40 Problem List Initiated/Reviewed/Updated: Yes Orders Last 24hrs: Active Orders 24 hr Category Date Time Status Patient Status [ADT] Routine ADT 11/12/17 23:08 Active Activity as Tolerated [RC] PFP Care 11/12/17 23:08 Active Communication Order [RC] ASDIRECTED Care 11/12/17 23:08 Active Communication Order [RC] ASDIRECTED Care 11/13/17 02:09 Active Cooling Warming Measures [RC] ASDIRECTED Care 11/13/17 02:09 Active Heart Tones [RC] ASDIRECTED Care 11/12/17 23:08 Active Notify Provider [RC] ASDIRECTED Care 11/13/17 02:09 Active Notify Provider [RC] PFP Care 11/12/17 23:08 Active Notify Provider [RC] PRN Care 11/12/17 23:08 Active Oxygen Therapy [RC] ASDIRECTED Care 11/13/17 02:09 Active Peripheral IV Care [RC] . DIRECTED Care 11/12/17 23:08 Active Pulse Oximetry [RC] ASDIRECTED Care 11/13/17 02:09 Active Verify Patient Consent Obtain [RC] ASDIRECTED Care 11/13/17 02:10 Active Vital Signs [RC] ASDIRECTED Care 11/13/17 02:09 Active Vital Signs [RC] PER UNIT ROUTINE Care 11/12/17 23:08 Active Clear Liquid Diet [DIET] Diet 11/13/17 Breakfast Active Bupivacaine/fentaNYL/NS [fentaNYL/Bupivacaine/NS 2 MCG- Med 11/13/17 02:15 Active 0.125% 100 ML] 100 ml EPIDUR ASDIRECTED Lactated Ringers [Ringers, Lactated] 1,000 ml Med 11/12/17 23:15 Active IV ASDIRECTED Lidocaine 1% [Xylocaine 1%] Med 11/12/17 23:08 Active 50 ml INJECT ONETIME PRN Nalbuphine [Nubain] Med 11/12/17 23:08 Active 10 mg IVPUSH Q2H PRN Ondansetron [Zofran] Med 11/12/17 23:08 Active 4 mg IVPUSH Q4H PRN Oxytocin/Lactated Ringers [Pitocin in LR 10 Units/1,000 Med 11/12/17 23:15 Active ML] 10 unit in 1,000 ml IV .CONTINUOUS Oxytocin/Lactated Ringers [Pitocin in LR 10 Units/1,000 Med 11/13/17 03:30 Active ML] 10 unit in 1,000 ml IV TITRATE Sodium Chloride 0.9% [Saline Flush] Med 11/12/17 23:08 Active 10 ml FLUSH ASDIRECTED PRN diphenhydrAMINE [Benadryl] Med 11/13/17 02:10 Active 25 mg IVPUSH Q6H PRN ePHEDrine [ePHEDrine Sulfate] Med 11/13/17 02:10 Active 5 mg IVPUSH ASDIRECTED PRN fentaNYL [Sublimaze] Med 11/13/17 02:10 Active 100 mcg EPIDUR Q3H PRN Electronic Heart Tones Ext w TOCO [WOMSER] Oth 11/12/17 23:08 Ordered Routine Electronic Heart Tones Internal [WOMSER] Per Unit Ot 11/12/17 23:08 Ordered Routine Peripheral IV Insertion Adult [OM.PC] Routine Oth 11/12/17 23:08 Ordered Resuscitation Status Routine Resus Stat 11/12/17 23:08 Ordered Medication Orders Diphenhydramine HCl (Benadryl) 25 mg IVPUSH Q6H PRN PRN Reason: Itching Ephedrine Sulfate (Ephedrine Sulfate) 5 mg IVPUSH ASDIRECTED PRN PRN Reason: HYPOTENTSION Fentanyl (Sublimaze) 100 mcg EPIDUR Q3H PRN PRN Reason: PAIN Last Admin: 11/13/17 02:46 Dose: 100 mcg Fentanyl/Bupivacaine HCl (Fentanyl/Bupivacaine/Ns 2 Mcg-0.125% 100 Ml) 100 ml EPIDUR ASDIRECTED [facility] Last Admin: 11/13/17 02:46 Dose: 100 ml Lactated Ringer's (Ringers, Lactated) 1,000 mls @ 100 mls/hr IV ASDIRECTED [facility] Last Admin: 11/13/17 02:35 Dose: 100 mls/hr Infusion: 11/13/17 01:13 Dose: 900 mls/hr Admin: 11/13/17 00:06 Dose: 900 mls/hr Infusion: 11/13/17 00:06 Dose: 900 mls/hr Admin: 11/12/17 23:25 Dose: 900 mls/hr Oxytocin/Lactated Ringer's (Pitocin In Lr 10 Units/1,000 Ml) 10 unit in 1,000 mls @ 500 mls/hr IV .CONTINUOUS JORGE A; Protocol Oxytocin/Lactated Ringer's (Pitocin In Lr 10 Units/1,000 Ml) 10 unit in 1,000 mls @ 12 mls/hr IV TITRATE JORGE A; Protocol Last Titration: 11/13/17 04:00 Dose: 4 munits/min, 24 mls/hr Admin: 11/13/17 03:33 Dose: 2 munits/min, 12 mls/hr Lidocaine HCl (Xylocaine 1%) 50 ml INJECT ONETIME PRN PRN Reason: Pain Nalbuphine HCl (Nubain) 10 mg IVPUSH Q2H PRN PRN Reason: Pain (moderate 4-6) Last Admin: 11/13/17 00:03 Dose: 10 mg Ondansetron HCl (Zofran) 4 mg IVPUSH Q4H PRN PRN Reason: Nausea/Vomiting Last Admin: 11/13/17 05:39 Dose: 4 mg Sodium Chloride (Saline Flush) 10 ml FLUSH ASDIRECTED PRN PRN Reason: Keep Vein Open Assessment/Plan Comment:: Assessment: 1. 37-4/7 week intrauterine , active labor, spontaneous rupture membranes with resultant clear amniotic fluid with change in cervical dilation 2. Group B strep status is negative by a corrected laboratory report 3. Rubella titer shows immunity 4. Patient plans to bottlefeed. 5. Epidural in place for analgesia. 6. Objective contraction monitoring with intrauterine pressure transducer. Plan: 1. Anticipate normal spontaneous vaginal delivery. 2. Epidural analgesia 3. Bottlefeeding desired by patient 4. Pitocin augmentation as necessary to facilitate adequate labor.
[2017-11-13] MEDS ORDERED: Acetaminophen 325 MG Tab PO PRN (19:03)
[2017-11-14] MEDS ORDERED: Citric Acid/Sodium Citrate Solution 30 ML Cup ONE (02:48)
[2017-11-14] MEDS ORDERED: Metoclopramide 10 MG/2 ML SDV ONE (02:48)
[2017-11-14] MEDS ORDERED: Citric Acid/Sodium Citrate Solution 30 ML Cup PO ONE ×2 (02:49→09:10)
[2017-11-14] MEDS ORDERED: Metoclopramide 10 MG/2 ML SDV IVPUSH ONE ×2 (02:49→02:54)
[2017-11-14] MEDS ORDERED: ceFAZolin 2 GM in Premix Bag 1 BAG IV ONE (02:49)
--- NOTE | 2017-11-14 02:54 | PCM.SN ---
- Free Text/Narrative Note: Patient is been pushing for approximately 2-1/2 hours. Patient is becoming somewhat fatigued and is asking for assistance in delivery of the baby. Discussion is held patient about vacuum extraction versus section. The procedures, risks, benefits alternatives of care discussed. She appears to understand and has desired an attempt at vacuum extraction. Verbal consent is obtained. Patient was placed in dorsal lithotomy position and back extracts applied. Small amount of lidocaine 1%?5 mL given perineal area in anticipation of possible episiotomy. The Silastic cup is then placed and over 2 contractions vacuum traction was attempted. The pressure is at maximum 625 mmHg. Patient pushed well and was unsuccessful in bringing the baby down any further than it already was. Patient has a relatively narrow pubic arch. One pop-off was noted at the end of the contraction. Significant molding is present prior to the vacuum extraction attempt. Discussion is held with patient as to how to proceed with an unsuccessful vacuum extraction. Primary lower uterine segment transverse uterine section under epidural block is recommended. Patient wishes to proceed, assessed of the risks, benefits, alternatives of care and she has signed consent. We'll proceed to section. Bicitra and Reglan to be given. We'll give test dose of Ancef prior to giving full dose because the patient's allergy to amoxicillin. Wreath Machine Operator be in attendance for delivery.
[2017-11-14] MEDS ORDERED: Bupivacaine 0.25% 10 ML SDV ONE (03:00)
[2017-11-14] MEDS ORDERED: Bupivacaine 0.5% 30 ML SDV ONE (03:04)
[2017-11-14] MEDS ORDERED: Ondansetron 4 MG/2 ML SDV ONE (03:09)
[2017-11-14] MEDS ORDERED: Ketorolac 30 MG/ML SDV ONE (03:09)
[2017-11-14] MEDS ORDERED: Oxytocin 10 Units/1 ML SDV ONE ×2 (03:09→03:11)
[2017-11-14] MEDS ORDERED: Morphine PF 10 MG/10 ML SDV ONE (03:09)
[2017-11-14] MEDS ORDERED: Lactated Ringers 2,000 ML ONE (03:09)
[2017-11-14] MEDS ORDERED: ceFAZolin 1 GM Vial ONE (03:09)
[2017-11-14] MEDS ORDERED: Lidocaine 2% with EPINEPHrine 1:200,000 20 ML SDV ONE (03:13)
[2017-11-14] MEDS ORDERED: Sodium Bicarbonate 8.4% 50 MEQ/50 ML SDV ONE (03:13)
[2017-11-14] MEDS ORDERED: ePHEDrine 50 MG/ML SDV ONE (03:15)
[2017-11-14] MEDS ORDERED: fentaNYL 100 MCG/2 ML SDV ONE (03:15)
[2017-11-14] MEDS ORDERED: Phenylephrine/Normal Saline 100 MCG/ML 10 ML Syringe ONE (03:46)
[2017-11-14] MEDS ORDERED: Ondansetron 4 MG/2 ML SDV IVPUSH PRN (03:47)
[2017-11-14] MEDS ORDERED: diphenhydrAMINE 50 MG/ML SDV IVPUSH PRN ×2 (03:47→07:08)
--- NOTE | 2017-11-14 04:22 | PCM.POSTAN ---
POST ANESTHESIA ASSESSMENT - MENTAL STATUS Mental Status: Alert, Oriented - VITAL SIGNS Pulse Rate: 128 SaO2: 100 Resp Rate: 23 Blood Pressure: 100/60 Temperature: 99.5 F - RESPIRATORY Respiratory Status: Respiratory Rate WNL, Airway Patent, O2 Saturation Stable, Supplemental Oxygen - CARDIOVASCULAR CV Status: Blood Pressure Stable, Elevated Pulse Rate - GASTROINTESTINAL GI Status: No Symptoms - PAIN Pain Score: 2 (shoulder pain) - POST OP HYDRATION Hydration Status: Adequate & Stable
--- NOTE | 2017-11-14 04:34 | PCM.OPNOTE ---
- General Post-Op/Procedure Note Date of Surgery/Procedure: 11/14/17 Operative Procedure(s): Primary lower uterine segment transverse section through Pfannenstiel skin incision Findings: Baby is in a vertex presentation. Significant amount of molding noted. Uterus tubes and ovaries consistent with term . The amniotic fluid and placenta appeared to have an older. Placenta sent for evaluation. Pre Op Diagnosis: 37 week intrauterine , failure to progress Post-Op Diagnosis: Same with delivery of viable, zaragoza, male infant with Apgars of 8 and 9, a weight of 7 lbs. 2 oz. at 0339 hours on 11/14/2017 Anesthesia Technique: Epidural, Local Other Anesthesia Type: Marcaine 0.5% mL total Primary Surgeon: Carloz Perez Secondary Surgeon: Fidelina Walker Anesthesia Provider: Flores Lin Reason Ear Pull Machine Operator Was Necessary: Assistance, retraction, patient safety, quality of care Role of Ear Pull Machine Operator: Assistance, retraction Pathology: Placenta Fluid Replacement, Intraop: 1,700 Output, Urine Amount: 150 EBL in mLs: 1,600 Drain/Tube Comments:: Indwelling bladder catheter Complications: None Condition: Good Free Text/Narrative:: Intake & Output 11/13/17 11/13/17 11/14/17 14:59 22:59 06:59 Intake Total 3000 Balance 3000 Surgery duration: 35 minutes Procedure: Patient was transferred to the room and placed in a sitting position. Epidural anesthesia was administered. After confirmation of adequate anesthesia patient was placed in a supine position with a wedge under her right side to facilitate left lateral positioning. The patient was prepped and draped in usual fashion after Nicole catheter was already placed . The anesthetic was checked and found to be adequate. 20 mL of Marcaine 0.5% was injected locally in the Pfannenstiel incision site. The Pfannenstiel skin incision was then made carried down to skin subcutaneous and fascial layers. The fascia was then undermined superiorly and inferiorly to allow for adequate operating room the recti muscles midline and preperitoneal fat was bluntly dissected. Peritoneal cavity was entered longitudinally. The vesicouterine peritoneum was then incised transversely and bladder flap was developed. Myometrium was incised transversely to the level of the amniotic sac. This incision was extended bilaterally in a blunt fashion. The amniotic sac was then ruptured resulting clear but foul smelling amniotic fluid. A hand is placed in the low uterine segment, and nurse push the baby's head up from the vaginal position and the baby's head was brought forth through the incision. The baby was completely delivered using fundal pressure in a routine fashion. The nose and mouth were bulb suctioned. Baby's cord was clamped x2 cut and baby was handed off to attending crm specialist Dr Veag. Placenta was expressed after cord blood was obtained. Uterus was then exteriorized to allow for easier closure. The cervix was assessed and found to be dilated adequately to allow egress of blood. The uterus was closed in 2 layers. The first layer a running locked suture of 0 Monocryl, the second layer a running locked vertical mattress suture of 0 Monocryl. [id number] suture was placed at the left incision to control 1 bleeder. Hemostasis confirmed at this time. Sponge instrument needle counts are correct. The uterus was returned to the abdominal cavity and lateral gutters were cleared of blood. Once again sponge needle counts are correct. The anterior abdominal wall was closed with a #1 PDS suture from angle to angle. The subcutaneous area was found to be free of any bleeders. interrupted sutures of 3-0 Monocryl were used to reapproximate the subcutaneous layer.Skin was closed with a running subcuticular stitch of 3-0 Monocryl in a vertical mattress suture fashion using a Carlitos needle. Prineo mesh /glue was then applied to further approximate the incision. It should be noted that patient received 2 g of Ancef preoperatively for infection prophylaxis and had Pitocin infused after delivery of the placenta to facilitate uterine contraction. She also had sequential compression stockings in place for DVT prophylaxis. Patient was discharged from the operating room in satisfactory condition. Placenta was sent for histologic evaluation.
[2017-11-14] MEDS ORDERED: Methylergonovine 0.2 MG/1 ML Amp ONE (04:46)
[2017-11-14] MEDS ORDERED: Methylergonovine 0.2 MG/1 ML Amp IM PRN (04:47)
[2017-11-14] MEDS: Lactated Ringers 1,000 ML IV SCH (05:11)
[2017-11-14] MEDS ORDERED: Naloxone 0.4 MG/ML SDV IVPUSH PRN (07:08)
[2017-11-14] MEDS ORDERED: Lanolin 100% Cream 7 GM Tube TOP PRN (07:08)
[2017-11-14] MEDS ORDERED: Ondansetron 4 MG/2 ML SDV IV PRN (07:08)
[2017-11-14] MEDS ORDERED: Docusate Sodium 100 MG Cap PO PRN (07:08)
[2017-11-14] MEDS ORDERED: ePHEDrine 50 MG/ML SDV IVPUSH PRN (07:08)
[2017-11-14] MEDS ORDERED: Dextrose 5%-Lactated Ringers 1,000 ML IV SCH (07:08)
[2017-11-14] MEDS: Ibuprofen 800 MG Tab PO SCH ×2 (08:37→18:32)
[2017-11-14] MEDS: Simethicone 80 MG Tab.Chew PO SCH ×4 (08:38→22:38)
[2017-11-14] MEDS: Acetaminophen/oxyCODONE 325-5 MG Tab PO PRN ×2 (14:43→22:41)
[2017-11-14] MEDS ORDERED: Sodium Chloride 0.9% 1,000 ML IV ONE (18:56)
[2017-11-14] MEDS: Dextrose 5%-Lactated Ringers 1,000 ML IV SCH (22:36)
[2017-11-15] MEDS ORDERED: Sodium Chloride 0.9% 500 ML IV STA (02:05)
[2017-11-15] MEDS: Ibuprofen 800 MG Tab PO SCH (02:24)
[2017-11-15] MEDS: Dextrose 5%-Lactated Ringers 1,000 ML IV SCH (05:59)
[2017-11-15] MEDS: Prenatal Multivitamin with Calcium/Folic Acid/Iron Tab PO SCH ×2 (06:00→08:58)
[2017-11-15] MEDS: Acetaminophen/oxyCODONE 325-5 MG Tab PO PRN (06:01)
[2017-11-15] MEDS ORDERED: Ferrous Sulfate 325 MG Tab PO SCH (07:00)
[2017-11-15] MEDS: Simethicone 80 MG Tab.Chew PO SCH (08:58)
--- NOTE | 2017-11-15 09:17 | PCM.DCSUM1 ---
Discharge Summary - Hospital Course Free Text/Narrative:: Lisa is a 22-year-old 2 now para 1011 white female with an DISHA of who was admitted on 11/13/2017 in active labor spontaneous rupture membranes. She changed cervix from 3-5 cm, had gross rupture membranes with clear amniotic fluid. Patient went on to achieve complete cervical dilation eventually but after approximately 2-1/2-3 hours of pushing and failed vacuum extraction delivery underwent a primary section. was done on 11/14/2017 and resulted in a 7 lbs. 2 oz. male infant with Apgars of 8 and 9. He had some respiratory issues and eventually was transferred to [facility] for level II care. This due to lack of level II nursery staff available at our [place] facility. The patient had a 1600 mL blood loss at the time of surgery. Postoperatively patient's hemoglobin has dropped to 6.4 but patient is ambulating well, feels fine and declines blood transfusion at this point she feels she can manage this with iron therapy. Her vital signs are stable. Vaginal flow is minimal. Pain control is adequate. She is pumping and wants to breast-feed. In general she is doing very well considering her low hemoglobin. She is desiring discharge to go spend time with the baby. A reasonable request. - Discharge Data Discharge Date: 11/15/17 Discharge Disposition: Home, Self-Care 01 Condition: Good - Patient Summary/Data Operative Procedure(s) Performed: Primary lower uterine segment transverse section through Pfannenstiel skin incision - Patient Instructions Diet: Regular Diet as Tolerated (Nursing diet and increase calories and calcium is recommended) Activity: As Tolerated (No intercourse or tampons until seen back. No lifting greater than 15 pounds or taking a bath or driving a car 1 week) Driving: Do Not Drive Showering/Bathing: May Shower Wound/Incision Care: Keep Operative Site/Wound Site Clean and Dry Notify Provider of: Fever, Increased Pain, Swelling and Redness, Drainage, Nausea and/or Vomiting - Discharge Plan Home Medications: Home Meds Vit W-Ca,Fe,FA(<1 mg) [ Vitamins] 1 each PO DAILY 12/02/15 [ History] Acetaminophen/oxyCODONE [Percocet 325-5 MG] 2 tab PO Q4H PRN tablet 11/15/17 [ Rx] Ferrous Sulfate [Slow Release Iron] 142 mg PO BID #100 11/15/17 [Rx] Ibuprofen [IMW: Ibuprofen] 600 mg PO Q4H PRN #30 tablet 11/15/17 [Rx] Referrals: Carloz Perez MD [Primary Care Provider] - (RTC-One week-Dr. Perez) - Discharge Summary/Plan Comment DC Time >30 min.: No Discharge Summary/Plan Comment: Discharge instructions: 1. Discharge home 2. Diet, activity and follow-up discussed with patient. Recommend nursing diet with increased calories and calcium. 3. Precautions given concern increased pain, bleeding, temperature, signs/ symptoms of DVT/PE. 4. Medications per home medication was printed, discussed with and given to the patient. 5. Return to clinic-Dr. Perez-[facility] in 1 week. Diagnosis: Term -delivered Condition: Good - Patient Data Vitals - Most Recent: Last Vital Signs Temp 36.5 C 11/15/17 09:00 Pulse 85 11/15/17 09:00 Resp 16 11/15/17 09:00 BP 103/61 11/15/17 09:00 Pulse Ox 99 11/15/17 09:00 Weight - Most Recent: 85.956 kg I&O - Last 24 hours: Intake & Output 11/14/17 11/15/17 11/15/17 22:59 06:59 14:59 Intake Total 1400 1850 Output Total 550 525 Balance 850 1325 Lab Results - Last 24 hrs: Laboratory Results - last 24 hr 11/15/17 11/15/17 Range/Units 04:24 04:24 WBC 8.79 (3.98-10.04) K/mm3 RBC 2.40 L (3.98-5.22) M/mm3 Hgb 6.4 L* (11.2-15.7) gm/L Hct 20.1 L (34.1-44.9) % MCV 83.8 (79.4-94.8) fl MCH 26.7 (25.6-32.2) pg MCHC 31.8 L (32.2-35.5) g/dl RDW Std Deviation 39.8 (36.4-46.3) fL Plt Count 82 L (182-369) K/mm3 MPV 13.6 H (9.4-12.3) fl Neut % (Auto) 87.4 H (34.0-71.1) % Lymph % (Auto) 7.6 L (19.3-51.7) % Webb % (Auto) 4.4 L (4.7-12.5) % Eos % (Auto) 0.2 L (0.7-5.8) Baso % (Auto) 0.1 (0.1-1.2) % Neut # (Auto) 7.67 H (1.56-6.13) K/mm3 Lymph # (Auto) 0.67 L (1.18-3.74) K/mm3 Webb # (Auto) 0.39 H (0.24-0.36) K/mm3 Eos # (Auto) 0.02 L (0.04-0.36) K/mm3 Baso # (Auto) 0.01 (0.01-0.08) K/mm3 Manual Slide Review Abnormal smear Sodium 137 (136-145) mEq/L Potassium 3.5 (3.5-5.1) mEq/L Chloride 106 (98-107) mEq/L Carbon Dioxide 24 (21-32) mEq/L Anion Gap 10.5 (5-15) BUN 8 (7-18) mg/dL Creatinine 0.9 (0.55-1.02) mg/dL Est Cr Clr Drug Dosing 88.97 mL/min Estimated GFR (MDRD) > 60 (>60) mL/min BUN/Creatinine Ratio 8.9 L (14-18) Glucose 106 (74-106) mg/dL Calcium 8.2 L (8.5-10.1) mg/dL Total Bilirubin 0.7 (0.2-1.0) mg/dL AST 18 (15-37) U/L ALT 11 L (14-59) U/L Alkaline Phosphatase 64 (46-116) U/L Total Protein 4.6 L (6.4-8.2) g/dl Albumin 1.5 L (3.4-5.0) g/dl Globulin 3.1 gm/dL Albumin/Globulin Ratio 0.5 L (1-2) Med Orders - Current: Current Medications Diphenhydramine HCl (Benadryl) 25 mg IVPUSH Q6H PRN PRN Reason: Itching or Nausea Docusate Sodium (Colace) 100 mg PO Q12H PRN PRN Reason: Constipation Emollient Ointment (Lansinoh Hpa) 0 gm TOP ASDIRECTED PRN PRN Reason: Sore Nipples Ephedrine Sulfate (Ephedrine Sulfate) 5 mg IVPUSH SEECOMMENT PRN PRN Reason: Other Ferrous Sulfate (Ferrous Sulfate) 325 mg PO BIDMEALS [facility] Last Admin: 11/15/17 06:00 Dose: 325 mg Dextrose/Lactated Ringer's (Dextrose 5%-Lactated Ringers) 1,000 mls @ 125 mls/ hr IV ASDIRECTED [facility] Last Admin: 11/15/17 05:59 Dose: 125 mls/hr Ibuprofen (Motrin) 800 mg PO Q8H [facility] Methylergonovine Maleate (Methergine) 0.2 mg IM Q4H PRN PRN Reason: Bleeding Last Admin: 11/14/17 04:51 Dose: 0.2 mg Naloxone HCl (Narcan) 0.1 mg IVPUSH SEECOMMENT PRN PRN Reason: Respiratory Depression Ondansetron HCl (Zofran) 4 mg IV Q4H PRN PRN Reason: Nausea/Vomiting Oxycodone/Acetaminophen (Percocet 325-5 Mg) 2 tab PO Q4H PRN PRN Reason: Pain (moderate 4-6) Last Admin: 11/15/17 06:01 Dose: 2 tab Prenat Multivit/[place]/Iron/Folic Ac ( Plus Iron) 1 each PO DAILY [facility] Last Admin: 11/15/17 08:58 Dose: 1 each Simethicone (Simethicone) 80 mg PO PCBED [facility] Last Admin: 11/15/17 08:58 Dose: 80 mg Discontinued Medications Acetaminophen (Tylenol) 650 mg PO Q4H PRN PRN Reason: Headache/Pain Last Admin: 11/13/17 19:25 Dose: 650 mg Bupivacaine HCl (Marcaine 0.5%) Confirm Administered Dose 30 ml .ROUTE .STK-MED ONE Stop: 11/14/17 03:05 Last Admin: 11/14/17 03:33 Dose: 20 ml Cefazolin Sodium (Ancef) Confirm Administered Dose 2 gm .ROUTE .STK-MED ONE Stop: 11/14/17 03:10 Citric Acid/Sodium Citrate (Bicitra Solution) Confirm Administered Dose 30 ml .ROUTE .STK-MED ONE Stop: 11/14/17 02:49 Last Admin: 11/14/17 09:19 Dose: Not Given Citric Acid/Sodium Citrate (Bicitra Solution) 30 ml PO ONETIME ONE Stop: 11/14/17 02:50 Last Admin: 11/14/17 02:52 Dose: 30 ml Citric Acid/Sodium Citrate (Bicitra Solution) 30 ml PO ONETIME ONE Stop: 11/14/17 09:11 Last Admin: 11/14/17 09:20 Dose: Not Given Diphenhydramine HCl (Benadryl) 25 mg IVPUSH Q6H PRN PRN Reason: Itching Diphenhydramine HCl (Benadryl) 25 mg IVPUSH Q6H PRN PRN Reason: pruritis Ephedrine Sulfate (Ephedrine Sulfate) 5 mg IVPUSH ASDIRECTED PRN PRN Reason: HYPOTENTSION Ephedrine Sulfate (Ephedrine Sulfate) Confirm Administered Dose 50 mg .ROUTE .STK-MED ONE Stop: 11/14/17 03:16 Fentanyl (Sublimaze) 100 mcg EPIDUR Q3H PRN PRN Reason: PAIN Last Admin: 11/13/17 02:46 Dose: 100 mcg Fentanyl (Sublimaze) Confirm Administered Dose 100 mcg .ROUTE .STK-MED ONE Stop: 11/14/17 03:16 Fentanyl/Bupivacaine HCl (Fentanyl/Bupivacaine/Ns 2 Mcg-0.125% 100 Ml) 100 ml EPIDUR ASDIRECTED JORGE A Last Admin: 11/13/17 19:55 Dose: 100 ml Lactated Ringer's (Ringers, Lactated) 1,000 mls @ 100 mls/hr IV ASDIRECTED JORGE A Last Admin: 11/14/17 05:11 Dose: 100 mls/hr Oxytocin/Lactated Ringer's (Pitocin In Lr 10 Units/1,000 Ml) 10 unit in 1,000 mls @ 500 mls/hr IV .CONTINUOUS JORGE A; Protocol Oxytocin/Lactated Ringer's (Pitocin In Lr 10 Units/1,000 Ml) 10 unit in 1,000 mls @ 12 mls/hr IV TITRATE JORGE A; Protocol Last Titration: 11/13/17 06:30 Dose: 3 munits/min, 18 mls/hr Cefazolin Sodium/Dextrose 2 gm (/ Premix) 50 mls @ 100 mls/hr IV ONETIME ONE Stop: 11/14/17 03:18 Last Admin: 11/14/17 09:33 Dose: Not Given Lactated Ringer's (Ringers, Lactated) Confirm Administered Dose 2,000 mls @ as directed .ROUTE .STK-MED ONE Stop: 11/14/17 03:10 Dextrose/Lactated Ringer's (Dextrose 5%-Lactated Ringers) 1,000 mls @ 125 mls/ hr IV ASDIRECTED [facility] Stop: 11/14/17 15:07 Last Admin: 11/14/17 10:55 Dose: 125 mls/hr Sodium Chloride (Normal Saline) 1,000 mls @ 999 mls/hr IV ONETIME ONE Stop: 11/14/17 19:56 Last Admin: 11/14/17 21:23 Dose: 999 mls/hr Sodium Chloride (Normal Saline) 500 mls @ 999 mls/hr IV [facility] Stop: 11/15/17 02:35 Last Admin: 11/15/17 02:24 Dose: 999 mls/hr Ibuprofen (Motrin) 800 mg PO Q8H [facility] Last Admin: 11/15/17 02:24 Dose: 800 mg Ketorolac Tromethamine (Toradol) Confirm Administered Dose 30 mg .ROUTE .STK- MED ONE Stop: 11/14/17 03:10 Lidocaine HCl (Xylocaine 1%) 50 ml INJECT ONETIME PRN PRN Reason: Pain Lidocaine/Epinephrine (Xylocaine-Mpf 2%-Epi 1:200,000) Confirm Administered Dose 20 ml .ROUTE .STK-MED ONE Stop: 11/14/17 03:14 Methylergonovine Maleate (Methergine) Confirm Administered Dose 0.2 mg .ROUTE .STK-MED ONE Stop: 11/14/17 04:47 Last Admin: 11/14/17 08:32 Dose: Not Given Metoclopramide HCl (Reglan) Confirm Administered Dose 10 mg .ROUTE .STK-MED ONE Stop: 11/14/17 02:49 Last Admin: 11/14/17 09:19 Dose: Not Given Metoclopramide HCl (Reglan) 10 mg IVPUSH ONETIME ONE Stop: 11/14/17 02:50 Last Admin: 11/14/17 09:19 Dose: Not Given Metoclopramide HCl (Reglan) 10 mg IVPUSH ONETIME ONE Stop: 11/14/17 02:55 Last Admin: 11/14/17 02:54 Dose: 10 mg Morphine Sulfate (Duramorph Pf) Confirm Administered Dose 10 mg .ROUTE .STK-MED ONE Stop: 11/14/17 03:10 Nalbuphine HCl (Nubain) 10 mg IVPUSH Q2H PRN PRN Reason: Pain (moderate 4-6) Last Admin: 11/13/17 00:03 Dose: 10 mg Ondansetron HCl (Zofran) 4 mg IVPUSH Q4H PRN PRN Reason: Nausea/Vomiting Last Admin: 11/13/17 05:39 Dose: 4 mg Ondansetron HCl (Zofran) Confirm Administered Dose 4 mg .ROUTE .STK-MED ONE Stop: 11/14/17 03:10 Ondansetron HCl (Zofran) 4 mg IVPUSH ONETIME PRN PRN Reason: Nausea/Vomiting Oxytocin (Pitocin) Confirm Administered Dose 10 unit .ROUTE .STK-MED ONE Stop: 11/14/17 03:10 Oxytocin (Pitocin) Confirm Administered Dose 10 unit .ROUTE .STK-MED ONE Stop: 11/14/17 03:12 Phenylephrine HCl (Phenylephrine In Ns 100 Mcg/Ml) Confirm Administered Dose 1 mg .ROUTE .STK-MED ONE Stop: 11/14/17 03:47 Sodium Bicarbonate (Sodium Bicarbonate 8.4%) Confirm Administered Dose 50 meq .ROUTE .STK-MED ONE Stop: 11/14/17 03:14 Sodium Chloride (Saline Flush) 10 ml FLUSH ASDIRECTED PRN PRN Reason: Keep Vein Open
--- NOTE | 2017-11-15 09:20 | PCM48HPAN ---
Post Anesthesia Note - EVALUATION WITHIN 48HRS OF ANESTHETIC Vital Signs in Normal Range: Yes Patient Participated in Evaluation: Yes Respiratory Function Stable: Yes Airway Patent: Yes Cardiovascular Function Stable: Yes Hydration Status Stable: Yes Pain Control Satisfactory: Yes Nausea and Vomiting Control Satisfactory: Yes Mental Status Recovered: Yes
[2017-11-15] MEDS ORDERED: Ibuprofen 800 MG Tab PO SCH (10:00)
[2017-11-15 12:50] VITALS: BP 116/62
== END 2017-11-15 12:40 | disposition home or self-care (01) | DRG 766 ==
LOC: JD.OB 22:21 → JD.OBCHECK 22:21 → UNDOADMOB 23:08 → JD.OB 23:08 → JD.OBCHECK 23:12 → JD.OB 11-14 03:39 → OBSVTOIN 11-14 03:39 → INTOOBSV 11-14 03:39
PROVIDERS: ADMIT Obstetrics & Gynecology; ATTEND Obstetrics & Gynecology
PROC: 6A550ZT Pheresis of Cord Blood Stem Cells, Single (ICD-10-PCS; principal; 2017-11-14)
PROC: 10D00Z1 Extraction of Products of Conception, Low, Open Approach (ICD-10-PCS; principal; 2017-11-14)
PROC: 10H07YZ Insertion of Other Device into Products of Conception, Via Natural or Artificial Opening (ICD-10-PCS; principal; 2017-11-14)
PROC: 3E0R3BZ Introduction of Anesthetic Agent into Spinal Canal, Percutaneous Approach (ICD-10-PCS; 2017-11-14)
PROC: 00HU33Z Insertion of Infusion Device into Spinal Canal, Percutaneous Approach (ICD-10-PCS; 2017-11-14)
DX: O66.5 Attempted application of vacuum extractor and forceps (principal); O75.81 Maternal exhaustion complicating labor and delivery; Z3A.37 37 weeks gestation of pregnancy; Z37.0 Single live birth; Z88.1 Allergy status to other antibiotic agents; Z87.440 Personal history of urinary (tract) infections; Z79.899 Other long term (current) drug therapy
CPT/HCPCS: 01961; 36415; 51702; 59025; 80053; 84112; 85025; A9270-GY; J0690; J1885; J2210; J2270; J2300; J2405; J2590; J2765; J3010; J7040; J7042; J7120

== ENCOUNTER 2017-11-24 22:28 | Emergency (ER) | payer SELFPAY ==
[2017-11-24 22:38] VITALS: BP 113/69
[2017-11-24] MEDS ORDERED: Doxycycline 100 MG Cap PO ONE (22:56)
--- NOTE | 2017-11-24 22:56 | EDM.PDOC ---
ED HPI GENERAL MEDICAL PROBLEM - General Chief Complaint: General Stated Complaint: INCISION OPENED Time Seen by Provider: 11/24/17 22:56 Source of Information: Reports: Patient, Family (spouse) History Limitations: Reports: No Limitations - History of Present Illness INITIAL COMMENTS - FREE TEXT/NARRATIVE: 22-year-old female presents the ED with concerns about wound infection. She had a done by Dr. Perez 10 days ago. Tonight 6 was aware that there was fluid and purulent material oozing from the left lateral aspect of her surgical wound. She identified it on her underclothes. This contained a bit of blood and purulent material and some serous material. She states the area is slightly tender on the lateral aspect of the incision. Currently has no systemic signs of illness such as fever chills nausea vomiting. Is currently not using any pain medication. She is not breast-feeding. Onset: Today Onset Date: 11/24/17 Onset Time: 22:00 Duration: Minutes: Location: Reports: Abdomen ( surgical wound carried out 10 days ago) Quality: Reports: Ache Severity: Mild Improves with: Reports: None Worsens with: Reports: None Context: Reports: Other (Drainage on her underclothes tonight from the left lateral aspect of the surgical wound.). Denies: Activity, Exercise, Lifting, Sick Contact, Trauma Associated Symptoms: Reports: No Other Symptoms Treatments CALCULATOR OPERATOR: Reports: Other (see below) (None.) - Related Data Allergies Allergy/AdvReac Type Severity Reaction Status Date / Time amoxicillin [Amoxicillin] Allergy Hives Verified 11/24/17 22:38 Home Meds: Home Meds Doxycycline [Vibramycin] 100 mg PO DAILY #20 tab 11/24/17 [Rx] Past Medical History - Past Health History Medical/Surgical History: Denies Medical/Surgical History HEENT History: Reports: Impaired Vision Respiratory History: Reports: None Gastrointestinal History: Reports: GERD Other Gastrointestinal History: GI upset/diarrhea 1 week ago, no fever, no further issue Genitourinary History: Reports: Renal Calculus, UTI, Recurrent DIRECTOR PAID MEDIA History: Reports: , Spontaneous Musculoskeletal History: Reports: None Neurological History: Reports: None Psychiatric History: Reports: None Endocrine/Metabolic History: Reports: None Hematologic History: Reports: Other (See Below) Other Hematologic History: Low platelets Immunologic History: Reports: None Oncologic (Cancer) History: Reports: None Dermatologic History: Reports: None - Infectious Disease History Infectious Disease History: Reports: None - Past Surgical History HEENT Surgical History: Reports: Oral Surgery, Tonsillectomy Cardiovascular Surgical History: Reports: None Female Surgical History: Reports: Section Social & Family History - Family History Family Medical History: Noncontributory - Tobacco Use Smoking Status *Q: Never Smoker Second Hand Smoke Exposure: No - Caffeine Use Caffeine Use: Reports: Soda Other Caffeine Use: Occasional - Recreational Drug Use Recreational Drug Use: No - Living Situation & Occupation Living situation: Reports: Occupation: Unemployed ED ROS GENERAL - Review of Systems Review Of Systems: See Below Constitutional: Reports: Fatigue (From feeding a .). Denies: Fever, Chills, Malaise, Weakness, Decreased Appetite, Weight Loss HEENT: Reports: No Symptoms ( Mrs. a lot of sleep.) Respiratory: Reports: No Symptoms Cardiovascular: Reports: No Symptoms Endocrine: Reports: No Symptoms GI/Abdominal: Reports: Other (She has mild pain at her surgical site. Each was noted to be coming from the left lateral aspect of the wound.) : Reports: No Symptoms, Other (Still has mild lochia.) Musculoskeletal: Reports: No Symptoms Skin: Reports: Other (Surgical healing surgical wound from 10 days ago lower abdomen Pfannenstiel incision) Neurological: Reports: No Symptoms Psychiatric: Reports: No Symptoms Hematologic/Lymphatic: Reports: No Symptoms ED EXAM, GENERAL - Physical Exam Exam: See Below Exam Limited By: No Limitations General Appearance: Alert, WD/WN, No Apparent Distress Respiratory/Chest: No Respiratory Distress, Lungs Clear, Normal Breath Sounds, Chest Non-Tender Cardiovascular: Normal Peripheral Pulses, Regular Rate, Rhythm, No Edema, No Gallop, No Murmur, No Rub GI/Abdominal: Normal Bowel Sounds, Soft, Other (She does have some hematoma formation along her surgical wound. There is a fullness approximately 2 cm in diameter at the left lateral aspect of the surgical wound. I was able to express a small amount of seropurulent material. There is slightly erythematous and slightly warm to touch with no cellulitis. Peers to be a resolving hematoma or seroma that may or may not become secondarily infected.) Extremities: Normal Inspection, Normal Range of Motion, Non-Tender, No Pedal Edema Neurological: Alert, Oriented, CN II-XII Intact, Normal Cognition, Normal Gait Course - Vital Signs Last Recorded V/S: Last Vital Signs Temp 36.9 C 11/24/17 22:35 Pulse 96 11/24/17 22:35 Resp 18 11/24/17 22:35 BP 113/69 11/24/17 22:35 Pulse Ox 96 11/24/17 22:35 - Orders/Labs/Meds Meds: Medications Discontinued Medications Generic Name Dose Route Start Last Admin Trade Name Gray PRN Reason Stop Dose Admin Doxycycline Hyclate 200 mg 11/24/17 22:56 11/24/17 23:10 Vibramycin PO 11/24/17 22:57 200 mg ONETIME ONE Administration - Radiology Interpretation Free Text/Narrative:: 22-year-old female presents the ED with seropurulent material oozing from the left lateral aspect of her wound. Appears clinically that she has a resolving hematoma/seroma in this area. The material I was able to express was slightly sanguinous and cramps. 1. Is no surrounding erythema. There is mildly tender to touch. There appears to be an underlying 2 cm hematoma in this area. Decision made to place her on doxycycline 200 mg given in the ED and she will take 100 mg twice daily for the next 10 days to ensure that no infection occurs. Her follow-up with Dr. Perez is not for 6 weeks post . She will follow-up sooner if she develops any redness or systemic signs of illness such as fever chills nausea vomiting. Departure - Departure Time of Disposition: 23:25 Disposition: Home, Self-Care 01 Condition: Fair Clinical Impression: Wound infection after surgery Qualifiers: Encounter type: initial encounter Qualified Code(s): T81.4XXA - Infection following a procedure, initial encounter - Discharge Information Prescriptions: Doxycycline [Vibramycin] 100 mg PO DAILY #20 tab Instructions: Surgical Site Infections FAQs - [facility] Referrals: Fidelina Walker MD [Primary Care Provider] - Forms: ED Department Discharge Additional Instructions: Evaluation in the emergency room tonight in regards to drainage from the left lateral aspect of your wound. was carried out about 10 days ago. On examination there is evidence of a hematoma or collection of blood or fluid just underneath the lateral part of the incision. This is where the drainage occurred from tonight. I early mild infection is suspect. Sometimes serum or blood as it is being broken down can leak from the wound as well. Apply heat to the area for about 20 minutes out of every 6 hours or 4 times daily until the swelling goes down. He will be covered with antibiotics doxycycline 100 mg twice daily for the next 10 days to prevent wound infection. Initial tablets were provided to the ED. Follow-up with her DIRECTOR PAID MEDIA if any further problems occur.
== END 2017-11-24 23:35 | disposition home or self-care (01) ==
LOC: JD.ED 22:28
DX: O86.0 Infection of obstetric surgical wound (principal); Z88.1 Allergy status to other antibiotic agents; Z79.899 Other long term (current) drug therapy
CPT/HCPCS: 99283; A9270

== ENCOUNTER 2018-08-30 20:50 | Emergency (ER) | payer SELFPAY ==
[2018-08-30 21:14] VITALS: BP 119/79
[2018-08-30] MEDS ORDERED: Sodium Chloride 0.9% 10 ML Syringe FLUSH PRN (22:04)
[2018-08-30] MEDS ORDERED: Metoclopramide 10 MG/2 ML SDV IVPUSH ONE (22:04)
[2018-08-30] MEDS ORDERED: Ketorolac 30 MG/ML SDV IVPUSH ONE (22:04)
[2018-08-30] MEDS ORDERED: diphenhydrAMINE 50 MG/ML SDV IVPUSH ONE (22:04)
[2018-08-30] MEDS ORDERED: Sodium Chloride 0.9% 1,000 ML IV SCH (22:15)
[2018-08-30] MEDS ORDERED: Acetaminophen 325 MG Tab PO ONE (22:18)
--- NOTE | 2018-08-30 22:25 | EDM.PDOC ---
ED HPI GENERAL MEDICAL PROBLEM - General Chief Complaint: Headache Stated Complaint: HEADACHE Time Seen by Provider: 08/30/18 22:03 Source of Information: Reports: Patient, RN Notes Reviewed History Limitations: Reports: No Limitations - History of Present Illness INITIAL COMMENTS - FREE TEXT/NARRATIVE: Patient is a 23 year old female who presents to the ED for the evaluation of a headache. The patient states that she is 22 weeks . She states that this headache started around 2 pm this afternoon. She did take 1 tylenol but this didn't provide much relief. She notes that she is light sensitive and some nausea with this. She does not state that she has a prior history of migraines. She thinks she may have had 1 headache like this in the past, and states that this was due to a new medication she started. She states that she did not start any new medications at this time. She is only taking her vitamins. She states that she is able to eat and drink okay but she is having some nausea. She has not vomited or had any episodes of diarrhea. She further denies any body aches, chills, or other feelings of being unwell. She denies any double or blurry vision at this time. She thought maybe that she had some spots in her vision but was not entirely sure of this. This headache is located mainly on the left half of her head. She would rate this a 7/10. Left Headache Pain Score (Numeric/FACES): 7 - Related Data Allergies Allergy/AdvReac Type Severity Reaction Status Date / Time amoxicillin [Amoxicillin] Allergy Hives Verified 06/08/18 22:54 Home Meds: Home Meds Ondansetron [Zofran ODT] 4 mg PO Q6H PRN #15 tab.dis 06/08/18 [Rx] PNV95/Ferrous Fumarate/FA [ Tablet] 1 tab PO DAILY 06/08/18 [History] Past Medical History - Past Health History Medical/Surgical History: Denies Medical/Surgical History HEENT History: Reports: Impaired Vision Respiratory History: Reports: None Gastrointestinal History: Reports: GERD Other Gastrointestinal History: GI upset/diarrhea 1 week ago, no fever, no further issue Genitourinary History: Reports: Renal Calculus, UTI, Recurrent 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 HAND History: Reports: , Spontaneous Musculoskeletal History: Reports: None Neurological History: Reports: None Psychiatric History: Reports: None Endocrine/Metabolic History: Reports: None Hematologic History: Reports: Other (See Below) Other Hematologic History: Low platelets Immunologic History: Reports: None Oncologic (Cancer) History: Reports: None Dermatologic History: Reports: None - Infectious Disease History Infectious Disease History: Reports: None - Past Surgical History Head Surgeries/Procedures: Reports: None HEENT Surgical History: Reports: Oral Surgery, Tonsillectomy Cardiovascular Surgical History: Reports: None Female Surgical History: Reports: Section Social & Family History - Family History Family Medical History: Noncontributory - Tobacco Use Smoking Status *Q: Never Smoker - Caffeine Use Caffeine Use: Reports: None Other Caffeine Use: Occasional - Living Situation & Occupation Living situation: Reports: Occupation: Unemployed ED ROS GENERAL - Review of Systems Review Of Systems: See Below Constitutional: Denies: Fever, Chills, Malaise HEENT: Denies: Vertigo, Vision Change Respiratory: Reports: No Symptoms Cardiovascular: Reports: No Symptoms Endocrine: Reports: No Symptoms GI/Abdominal: Reports: Nausea. Denies: Diarrhea, Vomiting : Reports: No Symptoms Musculoskeletal: Reports: No Symptoms Skin: Reports: No Symptoms Neurological: Reports: Headache. Denies: Dizziness, Numbness, Tingling Psychiatric: Reports: No Symptoms Hematologic/Lymphatic: Reports: No Symptoms - Physical Exam Exam: See Below Exam Limited By: No Limitations General Appearance: Alert, WD/WN, No Apparent Distress Eye Exam: Bilateral Eye: EOMI, Normal Inspection, PERRL Ears: Normal External Exam Nose: Nasal Deformity Throat/Mouth: Normal Inspection, Normal Oropharynx, No Airway Compromise Head Exam: Atraumatic, Normocephalic Neck: Normal Inspection Respiratory/Chest: No Respiratory Distress, Lungs Clear, Normal Breath Sounds, No Accessory Muscle Use, Chest Non-Tender Cardiovascular: Normal Peripheral Pulses, Regular Rate, Rhythm, No Murmur GI/Abdominal: Normal Bowel Sounds, Soft, Non-Tender, No Distention, Other ( gravid appearing abdomen) Neuro Exam (Abbreviated): Alert, Oriented, Normal Cognition, No Motor/Sensory Deficits Extremities: Normal Inspection, Normal Capillary Refill Psychiatric: Normal Affect, Normal Mood Skin Exam: Warm, Dry, Normal Color, No Rash Course - Vital Signs Last Recorded V/S: Last Vital Signs Temp 97.0 F 08/30/18 21:11 Pulse 93 08/30/18 21:11 Resp 16 08/30/18 21:11 BP 119/79 08/30/18 21:11 Pulse Ox 100 08/30/18 21:11 - Orders/Labs/Meds Orders: Active Orders 24 hr Category Date Time Status Peripheral IV Care [RC] . DIRECTED Care 08/30/18 22:04 Ordered Sodium Chloride 0.9% [Normal Saline] 1,000 ml Med 08/30/18 22:15 Active IV ASDIRECTED Sodium Chloride 0.9% [Saline Flush] Med 08/30/18 22:04 Active 10 ml FLUSH ASDIRECTED PRN Peripheral IV Insertion Adult [OM.PC] Routine Oth 08/30/18 22:04 Ordered Medication Orders Sodium Chloride (Normal Saline) 1,000 mls @ 999 mls/hr IV ASDIRECTED JORGE A Last Admin: 08/30/18 22:22 Dose: 999 mls/hr Sodium Chloride (Saline Flush) 10 ml FLUSH ASDIRECTED PRN PRN Reason: Keep Vein Open Last Admin: 08/30/18 22:24 Dose: 10 ml Meds: Medications Generic Name Dose Route Start Last Admin Trade Name Freq PRN Reason Stop Dose Admin Sodium Chloride 1,000 mls @ 999 mls/hr 08/30/18 22:15 08/30/18 22:22 Normal Saline IV 999 mls/hr ASDIRECTED JORGE A Administration Sodium Chloride 10 ml 08/30/18 22:04 08/30/18 22:24 Saline Flush FLUSH 10 ml ASDIRECTED PRN Administration Keep Vein Open Discontinued Medications Generic Name Dose Route Start Last Admin Trade Name Freq PRN Reason Stop Dose Admin Acetaminophen 650 mg 08/30/18 22:18 08/30/18 22:22 Tylenol PO 08/30/18 22:19 650 mg NOW ONE Administration Diphenhydramine HCl 25 mg 08/30/18 22:04 08/30/18 22:23 Benadryl IVPUSH 08/30/18 22:05 25 mg ONETIME ONE Administration Ketorolac Tromethamine 30 mg 08/30/18 22:04 08/30/18 22:25 Toradol IVPUSH 08/30/18 22:05 Not Given ONETIME ONE Metoclopramide HCl 10 mg 08/30/18 22:04 08/30/18 22:22 Reglan IVPUSH 08/30/18 22:05 10 mg ONETIME ONE Administration - Re-Assessments/Exams Free Text/Narrative Re-Assessment/Exam: 08/30/18 22:30 Patient presents to the ED for discussion of headache. I have ordered IV fluid bolus, 25 mg IV Benadryl, 10 mg IV Reglan, and 650 mg Tylenol PO for initial management. 08/30/18 23:10 Pt was re-assessed at bedside, and her headache has decreased by over 50%. Will d/c home with general recommendations. Departure - Departure Time of Disposition: 23:11 Disposition: Home, Self-Care 01 Condition: Fair Clinical Impression: Headache Qualifiers: Headache type: unspecified Headache chronicity pattern: acute headache Intractability: not intractable Qualified Code(s): R51 - Headache - Discharge Information *PRESCRIPTION DRUG MONITORING PROGRAM REVIEWED*: No *COPY OF PRESCRIPTION DRUG MONITORING REPORT IN PATIENT AMADOR: No Instructions: General Headache Without Cause, [id number] Referrals: Kat Martinez MD [Primary Care Provider] - Forms: ED Department Discharge Additional Instructions: You have been evaluated in the ED for your headache. Please take at least 650mg-1000mg of Tylenol at onset of headache with some rest to see if this doesn't help headaches in the future, while . DO NO EXCEED 4000mg TYLENOL IN A 24 HOUR TIME SPAN, THIS IS BAD FOR YOUR LIVER. Please return to the ED if you symptoms change or worsen. - My Orders Last 24 Hours: My Active Orders 08/30/18 22:04 Peripheral IV Care [RC] . DIRECTED Sodium Chloride 0.9% [Saline Flush] 10 ml FLUSH ASDIRECTED PRN Peripheral IV Insertion Adult [OM.PC] Routine 08/30/18 22:15 Sodium Chloride 0.9% [Normal Saline] 1,000 ml IV ASDIRECTED - Assessment/Plan Last 24 Hours: My Active Orders 08/30/18 22:04 Peripheral IV Care [RC] . DIRECTED Sodium Chloride 0.9% [Saline Flush] 10 ml FLUSH ASDIRECTED PRN Peripheral IV Insertion Adult [OM.PC] Routine 08/30/18 22:15 Sodium Chloride 0.9% [Normal Saline] 1,000 ml IV ASDIRECTED
== END 2018-08-30 23:26 | disposition home or self-care (01) ==
LOC: JD.ED 20:50
DX: R51 Headache (principal); Z88.1 Allergy status to other antibiotic agents
CPT/HCPCS: 96361; 96374; 96375; 99284; A9270; J1200; J2765; J7040

== ENCOUNTER 2018-08-31 17:47 | Emergency (ER) | payer SELFPAY ==
[2018-08-31 18:14] VITALS: BP 110/78
--- NOTE | 2018-08-31 18:18 | EDM.PDOC ---
ED HPI GENERAL MEDICAL PROBLEM - General Chief Complaint: Headache Stated Complaint: SEVERE MIGRAINE Time Seen by Provider: 08/31/18 18:18 Source of Information: Reports: Patient - History of Present Illness INITIAL COMMENTS - FREE TEXT/NARRATIVE: Patient is here today for evaluation of a left-sided headache. Patient states that it is aching or squeezing in nature. She feels like somebody "beat me up on the left side of my head". She denies any nausea or vomiting. Denies any diaphoresis or weakness. Eating and drinking well. Patient states that she does not have a history of migraines but has had quite a few headaches since being . She was actually evaluated in the emergency department yesterday and treated with Tylenol, Reglan, Benadryl and fluids and had resolution of her headache. It was still gone when she woke up this morning but it returned as she got up and started to be active again. Patient has not discussed these headaches with her OB/Dr Martinez. Patient states this is probably an 8 out of 10 for pain but not the worst headache she has ever had. She states that noise and light make it a bit worse. She denies any weakness. Her significant other states that she has had no changes in behavior or speech. 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: Acetaminophen Left Headache Pain Score (Numeric/FACES): 10 - Related Data Allergies Allergy/AdvReac Type Severity Reaction Status Date / Time amoxicillin [Amoxicillin] Allergy Hives Verified 06/08/18 22:54 Home Meds: Home Meds Ondansetron [Zofran ODT] 4 mg PO Q6H PRN #15 tab.dis 06/08/18 [Rx] PNV95/Ferrous Fumarate/FA [ Tablet] 1 tab PO DAILY 06/08/18 [History] Past Medical History - Past Health History Medical/Surgical History: Denies Medical/Surgical History HEENT History: Reports: Impaired Vision Respiratory History: Reports: None Gastrointestinal History: Reports: GERD Other Gastrointestinal History: GI upset/diarrhea 1 week ago, no fever, no further issue Genitourinary History: Reports: Renal Calculus, UTI, Recurrent 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: , 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 Musculoskeletal History: Reports: None Neurological History: Reports: None Psychiatric History: Reports: None Endocrine/Metabolic History: Reports: None Hematologic History: Reports: Other (See Below) Other Hematologic History: Low platelets Immunologic History: Reports: None Oncologic (Cancer) History: Reports: None Dermatologic History: Reports: None - Infectious Disease History Infectious Disease History: Reports: None - Past Surgical History Head Surgeries/Procedures: Reports: None HEENT Surgical History: Reports: Oral Surgery, Tonsillectomy Cardiovascular Surgical History: Reports: None Female Surgical History: Reports: Section Social & Family History - Family History Family Medical History: Noncontributory - Tobacco Use Smoking Status *Q: Unknown Ever Smoked - Caffeine Use Caffeine Use: Reports: Soda Other Caffeine Use: Occasional - Living Situation & Occupation Living situation: Reports: Occupation: Unemployed ED ROS GENERAL - Review of Systems Review Of Systems: See Below Constitutional: Reports: Fatigue. Denies: Fever, Chills, Malaise, Weakness, Decreased Appetite HEENT: Denies: Rhinitis, Sinus Problem, Vision Change Respiratory: Reports: No Symptoms Cardiovascular: Reports: No Symptoms GI/Abdominal: Reports: No Symptoms. Denies: Nausea, Vomiting Musculoskeletal: Reports: No Symptoms. Denies: Neck Pain Skin: Reports: No Symptoms Neurological: Reports: Headache. Denies: Confusion, Dizziness, Numbness, Seizure, Syncope, Tingling, Tremors, Trouble Speaking, Weakness, Change in Speech, Gait Disturbance Psychiatric: Reports: No Symptoms Hematologic/Lymphatic: Reports: No Symptoms - Physical Exam Exam: See Below Exam Limited By: No Limitations General Appearance: Alert, WD/WN, No Apparent Distress Eye Exam: Bilateral Eye: EOMI, Normal Inspection, PERRL Ears: Normal External Exam, Normal Canal, Hearing Grossly Normal, Normal TMs Throat/Mouth: Normal Inspection, Normal Oropharynx Head Exam: Atraumatic, Normocephalic Neck: Normal Inspection. No: Lymphadenopathy (L), Lymphadenopathy (R) Respiratory/Chest: No Respiratory Distress, Lungs Clear, Normal Breath Sounds Cardiovascular: Normal Peripheral Pulses, Regular Rate, Rhythm, No Murmur GI/Abdominal: Normal Bowel Sounds, Soft, Non-Tender Neuro Exam (Abbreviated): Alert, Oriented, Normal Cognition, Normal Reflexes, No Motor/Sensory Deficits, Other (F-N intact, negative romberg) Psychiatric: Normal Affect, Normal Mood Skin Exam: Warm, Dry, Intact Course - Vital Signs Last Recorded V/S: Last Vital Signs Temp 98 F 08/31/18 18:12 Pulse 87 08/31/18 18:12 Resp 19 08/31/18 18:12 BP 110/78 08/31/18 18:12 Pulse Ox 100 08/31/18 18:12 - Orders/Labs/Meds Meds: Medications Discontinued Medications Generic Name Dose Route Start Last Admin Trade Name Gray PRHaritha Reason Stop Dose Admin Acetaminophen 650 mg 08/31/18 18:32 08/31/18 18:58 Tylenol PO 08/31/18 18:33 650 mg NOW ONE Administration Diphenhydramine HCl 50 mg 08/31/18 18:32 08/31/18 18:58 Benadryl PO 08/31/18 18:33 50 mg ONETIME ONE Administration Sodium Chloride 1,000 mls @ 999 mls/hr 08/31/18 18:32 08/31/18 18:58 Normal Saline IV 08/31/18 19:32 999 mls/hr ONETIME ONE Administration Metoclopramide HCl 10 mg 08/31/18 18:34 08/31/18 18:58 Reglan IVPUSH 08/31/18 18:35 10 mg ONETIME ONE Administration - Re-Assessments/Exams Free Text/Narrative Re-Assessment/Exam: Patient is 22 weeks . No exam is normal. Patient states it is not the worst headache that she has ever had. Will start treatment with 650 mg of acetaminophen, 10 mg Reglan, 50mg Benadryl and 1 L of normal saline. 08/31/18 18:34 Upon reevaluation patient is resting comfortably and dozing off in the bed. Patient states that her pain is down to a 4, from an 8 on arrival. She still is concerned that the headache is not gone. Discussed alternative treatments and their use in , she would like to get the rest of the fluids and see how she feels. 08/31/18 19:35 Patient is now feeling much better, she reports her pain as 1. She prefers to go home and go to sleep. She'll follow-up with her hand former helper tomorrow or return to the emergency department for any new or worsening symptoms. 08/31/18 20:23 Departure - Departure Time of Disposition: 20:19 Disposition: Home, Self-Care 01 Condition: Good Clinical Impression: Headache Qualifiers: Headache type: unspecified Headache chronicity pattern: acute headache Intractability: not intractable Qualified Code(s): R51 - Headache - Discharge Information Instructions: Recurrent Migraine Headache, [id number] Referrals: Kat Martinez MD [Primary Care Provider] - Forms: ED Department Discharge Additional Instructions: You were evaluated in the emergency department today for a recurrent headache. Your neurological exam was normal. Since your headache is mostly gone at this time you will be discharged home. If your headache returns you can take 650 mg of Tylenol/acetaminophen and 50 mg of Benadryl. Both of these can be purchased [id number]. The Benadryl can cause you to be slightly drowsy so do not drive while taking this. You need to follow up with your hand former helper tomorrow to discuss prevention of your headaches. Return to the emergency department for any new or worsening symptoms.
[2018-08-31] MEDS ORDERED: Sodium Chloride 0.9% 1,000 ML IV ONE (18:32)
[2018-08-31] MEDS ORDERED: Acetaminophen 325 MG Tab PO ONE (18:32)
[2018-08-31] MEDS ORDERED: diphenhydrAMINE 50 MG Cap PO ONE (18:32)
[2018-08-31] MEDS ORDERED: Metoclopramide 10 MG/2 ML SDV IVPUSH ONE (18:34)
== END 2018-08-31 20:40 | disposition home or self-care (01) ==
LOC: JD.ED 17:47
DX: R51 Headache (principal); Z88.1 Allergy status to other antibiotic agents
CPT/HCPCS: 96361; 96374; 99283; A9270; J2765; J7040; 99284

== ENCOUNTER 2018-12-29 12:17 | Inpatient (IN) | payer SELFPAY ==
[2018-12-29] MEDS ORDERED: Nalbuphine 10 MG/1 ML Vial IVPUSH PRN (12:27)
[2018-12-29] MEDS ORDERED: Sodium Chloride 0.9% 10 ML Syringe FLUSH PRN (12:27)
[2018-12-29] MEDS ORDERED: Citric Acid/Sodium Citrate Solution 30 ML Cup PO ONE (12:27)
[2018-12-29] MEDS ORDERED: Metoclopramide 10 MG/2 ML SDV IVPUSH ONE (12:27)
[2018-12-29] MEDS ORDERED: Lactated Ringers 1,000 ML IV SCH (12:30)
[2018-12-29] MEDS ORDERED: Oxytocin/Lactated Ringers 10 UNIT/1,000 ML BAG IV SCH (12:30)
[2018-12-29] MEDS ORDERED: Morphine PF 10 MG/10 ML SDV ONE (12:37)
[2018-12-29] MEDS ORDERED: Oxytocin 10 Units/1 ML SDV ONE ×4 (12:39→13:52)
[2018-12-29] MEDS ORDERED: Bupivacaine 0.5% 30 ML SDV ONE (12:50)
--- NOTE | 2018-12-29 12:59 | PCM.PREANE ---
Preanesthetic Assessment - Anesthesia/Transfusion/Family Hx Anesthesia History: Prior Anesthesia Without Reaction Type of Anesthesia Reaction: Allergy Family History of Anesthesia Reaction: No Transfusion History: No Prior Transfusion(s) Intubation History: Unknown - Review of Systems General: No Symptoms Pulmonary: No Symptoms Cardiovascular: No Symptoms Gastrointestinal: No Symptoms Neurological: No Symptoms Other: Reports: None - Physical Assessment NPO Status Date: 12/29/18 NPO Status Time: 05:00 Height: 1.65 m Weight: 86.999 kg ASA Class: 2E Mental Status: Alert & Oriented x3 Airway Class: Mallampati = 2 Dentition: Reports: Normal Dentition ROM/Head Extension: Full Lungs: Clear to Auscultation, Normal Respiratory Effort Cardiovascular: Regular Rate, Regular Rhythm, No Murmurs - Allergies Allergies/Adverse Reactions: Allergies Allergy/AdvReac Type Severity Reaction Status Date / Time amoxicillin [Amoxicillin] Allergy Hives Verified 12/29/18 12:27 - Anesthesia Plan Pre-Op Medication Ordered: None - Acknowledgements Anesthesia Type Planned: Spinal Pt an Appropriate Candidate for the Planned Anesthesia: Yes Alternatives and Risks of Anesthesia Discussed w Pt/Guardian: Yes Pt/Guardian Understands and Agrees with Anesthesia Plan: Yes PreAnesthesia Questionnaire - Past Health History Medical/Surgical History: Denies Medical/Surgical History HEENT History: Reports: Impaired Vision Respiratory History: Reports: None Gastrointestinal History: Reports: GERD Other Gastrointestinal History: GI upset/diarrhea 1 week ago, no fever, no further issue Genitourinary History: Reports: Renal Calculus, UTI, Recurrent 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: , 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 Musculoskeletal History: Reports: None Neurological History: Reports: None Psychiatric History: Reports: None Endocrine/Metabolic History: Reports: None Hematologic History: Reports: Other (See Below) Other Hematologic History: Low platelets Immunologic History: Reports: None Oncologic (Cancer) History: Reports: None Dermatologic History: Reports: None - Infectious Disease History Infectious Disease History: Reports: None - Past Surgical History Head Surgeries/Procedures: Reports: None HEENT Surgical History: Reports: Oral Surgery, Tonsillectomy Cardiovascular Surgical History: Reports: None Female Surgical History: Reports: Section - HOME MEDS Home Medications: Home Meds PNV95/Ferrous Fumarate/FA [ Tablet] 1 tab PO DAILY 06/08/18 [History] Acetaminophen [Tylenol] 650 mg PO Q6HR PRN 12/29/18 [History] Ferrous Sulfate [Iron] 325 mg PO TID 12/29/18 [History] - CURRENT (IN HOUSE) MEDS Current Meds: Current Medications Cefazolin Sodium/Dextrose 2 gm (/ Premix) 50 mls @ 100 mls/hr IV ONETIME ONE Stop: 12/29/18 13:29 Lactated Ringer's (Ringers, Lactated) 1,000 mls @ 125 mls/hr IV ASDIRECTED [facility] Last Admin: 12/29/18 12:40 Dose: 125 mls/hr Oxytocin/Lactated Ringer's (Pitocin In Lr 10 Units/1,000 Ml) 10 unit in 1,000 mls @ 100 mls/hr IV ASDIRECTED [facility] Nalbuphine HCl (Nubain) 10 mg IVPUSH Q2H PRN PRN Reason: Pain Sodium Chloride (Saline Flush) 10 ml FLUSH ASDIRECTED PRN PRN Reason: Keep Vein Open Discontinued Medications Bupivacaine HCl (Marcaine 0.5%) Confirm Administered Dose 30 ml .ROUTE .STK-MED ONE Stop: 12/29/18 12:51 Citric Acid/Sodium Citrate (Bicitra Solution) 30 ml PO ONETIME ONE Stop: 12/29/18 12:28 Last Admin: 12/29/18 12:51 Dose: 30 ml Metoclopramide HCl (Reglan) 10 mg IVPUSH ONETIME ONE Stop: 12/29/18 12:28 Last Admin: 12/29/18 12:51 Dose: 10 mg Morphine Sulfate (Duramorph Pf) Confirm Administered Dose 10 mg .ROUTE .STK-MED ONE Stop: 12/29/18 12:38 Oxytocin (Pitocin) Confirm Administered Dose 10 unit .ROUTE .STK-MED ONE Stop: 12/29/18 12:40 Oxytocin (Pitocin) Confirm Administered Dose 10 unit .ROUTE .STK-MED ONE Stop: 12/29/18 12:40 Oxytocin (Pitocin) Confirm Administered Dose 10 unit .ROUTE .STK-MED ONE Stop: 12/29/18 12:41
[2018-12-29] MEDS ORDERED: ceFAZolin 2 GM in Premix Bag 1 BAG IV ONE (13:00)
[2018-12-29] MEDS ORDERED: ceFAZolin 1 GM Vial ONE ×2 (13:26→13:27)
[2018-12-29] MEDS ORDERED: Ketorolac 30 MG/ML SDV ONE (13:57)
[2018-12-29] MEDS ORDERED: Lactated Ringers 1,000 ML ONE (14:04)
[2018-12-29] MEDS ORDERED: Midazolam 1 MG/ML 2 ML SDV ONE (14:09)
--- NOTE | 2018-12-29 14:39 | PCM.POSTAN ---
POST ANESTHESIA ASSESSMENT - MENTAL STATUS Mental Status: Alert - RESPIRATORY Respiratory Status: Respiratory Rate WNL, Airway Patent, O2 Saturation Stable, Supplemental Oxygen - CARDIOVASCULAR CV Status: Pulse Rate WNL, Blood Pressure Stable - GASTROINTESTINAL GI Status: No Symptoms - POST OP HYDRATION Hydration Status: Adequate & Stable
--- NOTE | 2018-12-29 14:44 | PCM.OPNOTE ---
- General Post-Op/Procedure Note Date of Surgery/Procedure: 12/29/18 Operative Procedure(s): repeat section Findings: Viable female, weight 6#14oz, APGARS 8/9 at 1346 Pre Op Diagnosis: prior Post-Op Diagnosis: Same Anesthesia Technique: Spinal Primary Surgeon: Kat Martinez [employer] Report Developer: Maninder Wilburn Fluid Replacement, Intraop: 1,200 Output, Urine Amount: 40 EBL in mLs: 500 Complications: None Condition: Good Free Text/Narrative:: The patient was taken to the operating room where epidural anesthesia was dosed to surgical levels without difficulty. The patient was prepped and draped in the usual sterile fashion in the dorsal supine position with a leftward tilt. A Pfannenstiel skin incision was made with the scalpel and carried through to the underlying layer of fascia. The fascia was incised in the midline and extended laterally using Correa scissors. Titi clamps were used to elevate the superior aspect of the fascial incision, which was elevated, and the underlying rectus muscles were dissected off bluntly and using Correa scissors. Attention was then turned to the inferior aspect of the fascial incision, which in similar fashion was grasped with Titi clamps, elevated, and the underlying rectus muscles were dissected off bluntly and using the correa. The rectus muscles were dissected in the midline. The peritoneum was entered bluntly; this incision was extended superiorly and inferiorly with good visualization of the bladder. The bladder blade was inserted. The vesicouterine peritoneum was identified and entered sharply using Metzenbaum scissors. This incision was extended laterally and the bladder flap was created digitally. The bladder blade was reinserted. The lower uterine segment was incised in a transverse fashion using the scalpel and with digital traction. Clear fluid was noted. The was subsequently delivered by flexing the head to the incision. Body and shoulders followed without difficulty. The cord was clamped and cut. The was subsequently handed to the awaiting golf cart attendant whose presence had been requested.. The placenta was delivered spontaneously intact with a three-vessel cord noted. The uterus was exteriorized and cleared of all clots and debris. The uterine incision was repaired in 2 layers using 0 monocryl. Hemostasis was visualized. Hemostasis was visualized bilaterally. The uterus was returned to the abdomen. The uterine incision was reexamined and it was noted to be hemostatic. The pelvis was copiously irrigated. The fascia was closed with 1 PDS suture, and the skin was closed with 3-0 monocryl. Sponge, lap, and instrument counts were correct x2. The patient was stable at the completion of the procedure and was subsequently transferred to the recovery room in stable condition.
[2018-12-29] MEDS ORDERED: ePHEDrine 50 MG/ML SDV IVPUSH PRN (14:59)
[2018-12-29] MEDS ORDERED: diphenhydrAMINE 50 MG/ML SDV IVPUSH PRN (14:59)
[2018-12-29] MEDS ORDERED: Naloxone 0.4 MG/ML SDV IVPUSH PRN (14:59)
[2018-12-29] MEDS ORDERED: Lanolin 100% Cream 7 GM Tube TOP PRN (14:59)
[2018-12-29] MEDS ORDERED: Dextrose 5%-Lactated Ringers 1,000 ML IV SCH (14:59)
[2018-12-29] MEDS ORDERED: Ondansetron 4 MG/2 ML SDV IVPUSH PRN (16:47)
[2018-12-29] MEDS: Ketorolac 30 MG/ML SDV IVPUSH SCH (19:58)
[2018-12-29] MEDS ORDERED: Sodium Chloride 0.9% 500 ML IV ONE (22:04)
[2018-12-30] MEDS: Sodium Chloride 0.9% 1,000 ML IV SCH ×2 (00:56→06:39)
[2018-12-30] MEDS: Ketorolac 30 MG/ML SDV IVPUSH SCH ×2 (02:00→09:52)
--- NOTE | 2018-12-30 07:14 | PCM.PNPP ---
- General Info Date of Service: 12/30/18 Functional Status: Reports: Pain Controlled - Review of Systems General: Reports: No Symptoms HEENT: Reports: No Symptoms Pulmonary: Reports: No Symptoms Cardiovascular: Reports: No Symptoms Gastrointestinal: Reports: No Symptoms Genitourinary: Reports: No Symptoms Musculoskeletal: Reports: No Symptoms Skin: Reports: No Symptoms Neurological: Reports: No Symptoms Psychiatric: Reports: No Symptoms - General Info Date of Service: 12/30/18 - Patient Data Vital Signs - Most Recent: Last Vital Signs Temp 37.0 C 12/30/18 04:08 Pulse 66 12/30/18 04:08 Resp 16 12/30/18 07:00 BP 109/70 12/30/18 04:08 Pulse Ox 99 12/30/18 07:00 Weight - Most Recent: 86.999 kg I&O - Last 24 Hours: Intake & Output 12/29/18 12/30/18 12/30/18 22:59 06:59 14:59 Intake Total 1200 800 Output Total 235 255 Balance 965 545 Lab Results - Last 24 Hours: Laboratory Results - last 24 hr 12/29/18 12/29/18 12/29/18 Range/Units 12:55 12:55 12:55 WBC 6.30 (3.98-10.04) K/mm3 RBC 3.91 L (3.98-5.22) M/mm3 Hgb 8.0 L (11.2-15.7) gm/L Hct 26.5 L (34.1-44.9) % MCV 67.8 L (79.4-94.8) fl MCH 20.5 L (25.6-32.2) pg MCHC 30.2 L (32.2-35.5) g/dl RDW Std Deviation 41.0 (36.4-46.3) fL Plt Count 120 L (182-369) K/mm3 MPV TNP Neut % (Auto) 67.6 (34.0-71.1) % Lymph % (Auto) 24.8 (19.3-51.7) % Cavalier % (Auto) 6.7 (4.7-12.5) % Eos % (Auto) 0.5 L (0.7-5.8) Baso % (Auto) 0.2 (0.1-1.2) % Neut # (Auto) 4.27 (1.56-6.13) K/mm3 Lymph # (Auto) 1.56 (1.18-3.74) K/mm3 Cavalier # (Auto) 0.42 H (0.24-0.36) K/mm3 Eos # (Auto) 0.03 L (0.04-0.36) K/mm3 Baso # (Auto) 0.01 (0.01-0.08) K/mm3 Manual Slide Review Abnormal smear Sodium (136-145) mEq/L Potassium (3.5-5.1) mEq/L Chloride (98-107) mEq/L Carbon Dioxide (21-32) mEq/L Anion Gap (5-15) BUN (7-18) mg/dL Creatinine (0.55-1.02) mg/dL Est Cr Clr Drug Dosing mL/min Estimated GFR (MDRD) (>60) mL/min BUN/Creatinine Ratio (14-18) Glucose (74-106) mg/dL Calcium (8.5-10.1) mg/dL Total Bilirubin (0.2-1.0) mg/dL AST (15-37) U/L ALT (14-59) U/L Alkaline Phosphatase (46-116) U/L Total Protein (6.4-8.2) g/dl Albumin (3.4-5.0) g/dl Globulin gm/dL Albumin/Globulin Ratio (1-2) RPR Non-reactive (NONREACTIVE) Blood Type O NEGATIVE Gel Antibody Screen Negative 12/30/18 12/30/18 12/30/18 Range/Units 00:45 00:45 04:40 WBC 7.19 5.92 (3.98-10.04) K/mm3 RBC 3.25 L 3.19 L (3.98-5.22) M/mm3 Hgb 6.4 L* D 6.3 L* (11.2-15.7) gm/L Hct 22.4 L 22.1 L (34.1-44.9) % MCV 68.9 L 69.3 L (79.4-94.8) fl MCH 19.7 L 19.7 L (25.6-32.2) pg MCHC 28.6 L 28.5 L (32.2-35.5) g/dl RDW Std Deviation 40.6 40.7 (36.4-46.3) fL Plt Count 94 L 84 L (182-369) K/mm3 MPV Neut % (Auto) 66.5 (34.0-71.1) % Lymph % (Auto) 24.2 (19.3-51.7) % Cavalier % (Auto) 8.1 (4.7-12.5) % Eos % (Auto) 0.8 (0.7-5.8) Baso % (Auto) 0.2 (0.1-1.2) % Neut # (Auto) 3.94 (1.56-6.13) K/mm3 Lymph # (Auto) 1.43 (1.18-3.74) K/mm3 Cavalier # (Auto) 0.48 H (0.24-0.36) K/mm3 Eos # (Auto) 0.05 (0.04-0.36) K/mm3 Baso # (Auto) 0.01 (0.01-0.08) K/mm3 Manual Slide Review Abnormal smear Sodium 138 (136-145) mEq/L Potassium 3.4 L (3.5-5.1) mEq/L Chloride 105 (98-107) mEq/L Carbon Dioxide 23 (21-32) mEq/L Anion Gap 13.4 (5-15) BUN 8 (7-18) mg/dL Creatinine 0.7 (0.55-1.02) mg/dL Est Cr Clr Drug Dosing 113.43 mL/min Estimated GFR (MDRD) > 60 (>60) mL/min BUN/Creatinine Ratio 11.4 L (14-18) Glucose 101 (74-106) mg/dL Calcium 8.4 L (8.5-10.1) mg/dL Total Bilirubin 0.7 (0.2-1.0) mg/dL AST 15 (15-37) U/L ALT 9 L (14-59) U/L Alkaline Phosphatase 99 (46-116) U/L Total Protein 5.2 L (6.4-8.2) g/dl Albumin 1.9 L (3.4-5.0) g/dl Globulin 3.3 gm/dL Albumin/Globulin Ratio 0.6 L (1-2) RPR (NONREACTIVE) Blood Type Gel Antibody Screen Med Orders - Current: Current Medications Diphenhydramine HCl (Benadryl) 25 mg IVPUSH Q6H PRN PRN Reason: Itching or Nausea Emollient Ointment (Lansinoh Hpa) 0 gm TOP ASDIRECTED PRN PRN Reason: Sore Nipples Last Admin: 12/29/18 15:48 Dose: 1 applic Ephedrine Sulfate (Ephedrine Sulfate) 5 mg IVPUSH SEECOMMENT PRN PRN Reason: Other Sodium Chloride (Normal Saline) 1,000 mls @ 200 mls/hr IV ASDIRECTED [facility] Last Admin: 12/30/18 06:39 Dose: 125 mls/hr Ibuprofen (Motrin) 600 mg PO Q6H PRN PRN Reason: mild pain or fever Ketorolac Tromethamine (Toradol) 30 mg IVPUSH Q6H [facility] Stop: 12/30/18 08:01 Last Admin: 12/30/18 02:00 Dose: 30 mg Naloxone HCl (Narcan) 0.1 mg IVPUSH SEECOMMENT PRN PRN Reason: Respiratory Depression Ondansetron HCl (Zofran) 4 mg IVPUSH Q8H PRN PRN Reason: Nausea Last Admin: 12/29/18 16:58 Dose: 4 mg Discontinued Medications Bupivacaine HCl (Marcaine 0.5%) Confirm Administered Dose 30 ml .ROUTE .STK-MED ONE Stop: 12/29/18 12:51 Last Admin: 12/29/18 13:46 Dose: 20 ml Cefazolin Sodium (Ancef) Confirm Administered Dose 1 gm .ROUTE .STK-MED ONE Stop: 12/29/18 13:27 Cefazolin Sodium (Ancef) Confirm Administered Dose 1 gm .ROUTE .STK-MED ONE Stop: 12/29/18 13:28 Citric Acid/Sodium Citrate (Bicitra Solution) 30 ml PO ONETIME ONE Stop: 12/29/18 12:28 Last Admin: 12/29/18 12:51 Dose: 30 ml Cefazolin Sodium/Dextrose 2 gm (/ Premix) 50 mls @ 100 mls/hr IV ONETIME ONE Stop: 12/29/18 13:29 Last Admin: 12/29/18 14:06 Dose: Not Given Lactated Ringer's (Ringers, Lactated) 1,000 mls @ 125 mls/hr IV ASDIRECTED [facility] Last Admin: 12/29/18 12:40 Dose: 125 mls/hr Oxytocin/Lactated Ringer's (Pitocin In Lr 10 Units/1,000 Ml) 10 unit in 1,000 mls @ 100 mls/hr IV ASDIRECTED [facility] Lactated Ringer's (Ringers, Lactated) Confirm Administered Dose 1,000 mls @ as directed .ROUTE .STK-MED ONE Stop: 12/29/18 14:05 Dextrose/Lactated Ringer's (Dextrose 5%-Lactated Ringers) 1,000 mls @ 125 mls/ hr IV ASDIRECTED [facility] Stop: 12/29/18 22:58 Last Admin: 12/29/18 16:58 Dose: 125 mls/hr Sodium Chloride (Normal Saline) 500 mls @ 499.445 mls/hr IV ONETIME ONE Stop: 12/29/18 23:04 Last Admin: 12/29/18 22:28 Dose: 499.445 mls/hr Ketorolac Tromethamine (Toradol) Confirm Administered Dose 30 mg .ROUTE .ST- MED ONE Stop: 12/29/18 13:58 Metoclopramide HCl (Reglan) 10 mg IVPUSH ONETIME ONE Stop: 12/29/18 12:28 Last Admin: 12/29/18 12:51 Dose: 10 mg Midazolam HCl (Versed 1 Mg/Ml) Confirm Administered Dose 2 mg .ROUTE .STK-MED ONE Stop: 12/29/18 14:10 Morphine Sulfate (Duramorph Pf) Confirm Administered Dose 10 mg .ROUTE .ST-MED ONE Stop: 12/29/18 12:38 Nalbuphine HCl (Nubain) 10 mg IVPUSH Q2H PRN PRN Reason: Pain Oxytocin (Pitocin) Confirm Administered Dose 10 unit .ROUTE .STK-MED ONE Stop: 12/29/18 12:40 Oxytocin (Pitocin) Confirm Administered Dose 10 unit .ROUTE .STK-MED ONE Stop: 12/29/18 12:40 Oxytocin (Pitocin) Confirm Administered Dose 10 unit .ROUTE .STK-MED ONE Stop: 12/29/18 12:41 Oxytocin (Pitocin) Confirm Administered Dose 10 unit .ROUTE .ST-MED ONE Stop: 12/29/18 13:53 Sodium Chloride (Saline Flush) 10 ml FLUSH ASDIRECTED PRN PRN Reason: Keep Vein Open - Infant Interaction Support Person: - Recovery Exam Fundal Tone: Firm Fundal Level: 1 Fingerbreadths Below Umbilicus Fundal Placement: Midline Lochia Amount: Small Lochia Color: Rubra/Red Perineum Description: Intact, Minimal Bruising/Swelling Episiotomy/Laceration: None Bladder Status: Indwelling Catheter in Place Urinary Elimination: Indwelling Catheter - Exam General: Alert, Oriented HEENT: Pupils Equal Neck: Supple Lungs: Clear to Auscultation, Normal Respiratory Effort Cardiovascular: Regular Rate, Regular Rhythm GI/Abdominal Exam: Normal Bowel Sounds, Soft, Non-Tender, No Organomegaly, No Distention, No Abnormal Bruit, No Mass, Pelvis Stable Extremities: Normal Inspection, Normal Range of Motion, Non-Tender, No Pedal Edema, Normal Capillary Refill Neurological: No New Focal Deficit Psy/Mental Status: Alert, Normal Affect, Normal Mood - Problem List Review Problem List Initiated/Reviewed/Updated: Yes - My Orders Last 24 Hours: My Active Orders 12/29/18 12:27 Heart Tones [RC] PER UNIT ROUTINE Vital Signs [RC] PFP Resuscitation Status Routine 12/29/18 14:59 Communication Order [RC] PER UNIT ROUTINE Communication Order [RC] PER UNIT ROUTINE Vital Signs [RC] Q1HR Lanolin [Lansinoh HPA] See Dose Instructions TOP ASDIRECTED PRN Naloxone [Narcan] 0.1 mg IVPUSH SEECOMMENT PRN diphenhydrAMINE [Benadryl] 25 mg IVPUSH Q6H PRN ePHEDrine [ePHEDrine sulfate] 5 mg IVPUSH SEECOMMENT PRN Assess Lochia [WOMSER] Per Unit Routine Assess Uterine Involution [WOMSER] Per Unit Routine Medication Administration Instruction [OM.PC] Routine 12/29/18 16:47 Ondansetron [Zofran] 4 mg IVPUSH Q8H PRN 12/29/18 20:00 Ketorolac [Toradol] 30 mg IVPUSH Q6H 12/29/18 Dinner Regular Diet [DIET] 12/30/18 00:45 Sodium Chloride 0.9% [Normal Saline] 1,000 ml IV ASDIRECTED 12/30/18 14:00 Ibuprofen [Motrin] 600 mg PO Q6H PRN 12/30/18 14:46 Urinary Catheter Removal [RC] Per Unit Routine - Assessment Assessment:: Postop day 1. Had diminished urine output most of the night but after a 500 mL bolus and then 200 mL/hr for 4 hours is now having 100+ per hour Tolerating anemia. Will take mack out a bit later. Consider recheck cbc tomorrow am
[2018-12-30] MEDS ORDERED: Ibuprofen 600 MG Tab PO PRN (14:00)
--- NOTE | 2018-12-31 10:23 | PCM.DCSUM1 ---
Discharge Summary - Hospital Course Free Text/Narrative:: [facility] Post-Op/Procedure Note Patient Name: SOL GREEN Date of : 89 Patient Status: Inpatient Attending Provider: Kat Martinez Date: 12/29/18 14:41 Initialization Date: 12/29/18 14:41 - General Post-Op/Procedure Note Date of Surgery/Procedure: 12/29/18 Operative Procedure(s): repeat section Findings: Viable female, weight 6#14oz, APGARS 8/9 at 1346 Pre Op Diagnosis: prior Post-Op Diagnosis: Same Anesthesia Technique: Spinal Primary Surgeon: Kat Martinez [employer] Supervisor: Maninder Wilburn Fluid Replacement, Intraop: 1,200 Output, Urine Amount: 40 EBL in mLs: 500 Complications: None Condition: Good Free Text/Narrative:: The patient was taken to the operating room where epidural anesthesia was dosed to surgical levels without difficulty. The patient was prepped and draped in the usual sterile fashion in the dorsal supine position with a leftward tilt. A Pfannenstiel skin incision was made with the scalpel and carried through to the underlying layer of fascia. The fascia was incised in the midline and extended laterally using Correa scissors. Titi clamps were used to elevate the superior aspect of the fascial incision, which was elevated, and the underlying rectus muscles were dissected off bluntly and using Correa scissors. Attention was then turned to the inferior aspect of the fascial incision, which in similar fashion was grasped with Titi clamps, elevated, and the underlying rectus muscles were dissected off bluntly and using the correa. The rectus muscles were dissected in the midline. The peritoneum was entered bluntly; this incision was extended superiorly and inferiorly with good visualization of the bladder. The bladder blade was inserted. The vesicouterine peritoneum was identified and entered sharply using Metzenbaum scissors. This incision was extended laterally and the bladder flap was created digitally. The bladder blade was reinserted. The lower uterine segment was incised in a transverse fashion using the scalpel and with digital traction. Clear fluid was noted. The infant was subsequently delivered by flexing the head to the incision. Body and shoulders followed without difficulty. The cord was clamped and cut. The infant was subsequently handed to the awaiting customer experience strategist whose presence had been requested.. The placenta was delivered spontaneously intact with a three-vessel cord noted. The uterus was exteriorized and cleared of all clots and debris. The uterine incision was repaired in 2 layers using 0 monocryl. Hemostasis was visualized. Hemostasis was visualized bilaterally. The uterus was returned to the abdomen. The uterine incision was reexamined and it was noted to be hemostatic. The pelvis was copiously irrigated. The fascia was closed with 1 PDS suture, and the skin was closed with 3-0 monocryl. Sponge, lap, and instrument counts were correct x2. The patient was stable at the completion of the procedure and was subsequently transferred to the recovery room in stable condition. HPI Initial Comments: [facility] Post-Op/Procedure Note Patient Name: SOL GREEN Date of : [birth year] Patient Status: Inpatient Attending Provider: Kat Martinez Date: 12/29/18 14:41 Initialization Date: 12/29/18 14:41 - General Post-Op/Procedure Note Date of Surgery/Procedure: 12/29/18 Operative Procedure(s): repeat section Findings: Viable female, weight 6#14oz, APGARS 8/9 at 1346 Pre Op Diagnosis: prior Post-Op Diagnosis: Same Anesthesia Technique: Spinal Primary Surgeon: Kat Martinez [employer] Supervisor: Maninder Wilburn Fluid Replacement, Intraop: 1,200 Output, Urine Amount: 40 EBL in mLs: 500 Complications: None Condition: Good Free Text/Narrative:: The patient was taken to the operating room where epidural anesthesia was dosed to surgical levels without difficulty. The patient was prepped and draped in the usual sterile fashion in the dorsal supine position with a leftward tilt. A Pfannenstiel skin incision was made with the scalpel and carried through to the underlying layer of fascia. The fascia was incised in the midline and extended laterally using Correa scissors. Titi clamps were used to elevate the superior aspect of the fascial incision, which was elevated, and the underlying rectus muscles were dissected off bluntly and using Correa scissors. Attention was then turned to the inferior aspect of the fascial incision, which in similar fashion was grasped with Titi clamps, elevated, and the underlying rectus muscles were dissected off bluntly and using the correa. The rectus muscles were dissected in the midline. The peritoneum was entered bluntly; this incision was extended superiorly and inferiorly with good visualization of the bladder. The bladder blade was inserted. The vesicouterine peritoneum was identified and entered sharply using Metzenbaum scissors. This incision was extended laterally and the bladder flap was created digitally. The bladder blade was reinserted. The lower uterine segment was incised in a transverse fashion using the scalpel and with digital traction. Clear fluid was noted. The was subsequently delivered by flexing the head to the incision. Body and shoulders followed without difficulty. The cord was clamped and cut. The was subsequently handed to the awaiting customer experience strategist whose presence had been requested.. The placenta was delivered spontaneously intact with a three-vessel cord noted. The uterus was exteriorized and cleared of all clots and debris. The uterine incision was repaired in 2 layers using 0 monocryl. Hemostasis was visualized. Hemostasis was visualized bilaterally. The uterus was returned to the abdomen. The uterine incision was reexamined and it was noted to be hemostatic. The pelvis was copiously irrigated. The fascia was closed with 1 PDS suture, and the skin was closed with 3-0 monocryl. Sponge, lap, and instrument counts were correct x2. The patient was stable at the completion of the procedure and was subsequently transferred to the recovery room in stable condition. Brief History: [facility] . Post-Op/Procedure Note. [facility] [place] [facility]: [id number]. Date of : Patient Status: Inpatient. Attending Provider: Kat MartinezAccount Number: [id number]. Date: 12/29/18 14:41Initialization Date: 12/29/18 14:41. - General Post-Op/Procedure Note. Date of Surgery/Procedure: 12/29/18. Operative Procedure(s): repeat section. Findings: Viable female, weight 6#14oz, APGARS 8/9 at 1346. Pre Op Diagnosis: prior . Post-Op Diagnosis: Same. Anesthesia Technique: Spinal. Primary Surgeon: Kat Martinez. [employer] Supervisor: Maninder Wilburn Fluid Replacement, Intraop: 1,200. Output, Urine Amount: 40. EBL in mLs: 500. Complications: None. Condition: Good. Free Text/Narrative:: The patient was taken to the operating room where epidural anesthesia was dosed to surgical levels without difficulty. The patient was prepped and draped in the usual sterile fashion in the dorsal supine position with a leftward tilt. A Pfannenstiel skin incision was made with the scalpel and carried through to the underlying layer of fascia. The fascia was incised in the midline and extended laterally using Correa scissors. Titi clamps were used to elevate the superior aspect of the fascial incision, which was elevated, and the underlying rectus muscles were dissected off bluntly and using Correa scissors. Attention was then turned to the inferior aspect of the fascial incision, which in similar fashion was grasped with Titi clamps, elevated, and the underlying rectus muscles were dissected off bluntly and using the correa. The rectus muscles were dissected in the midline. The peritoneum was entered bluntly; this incision was extended superiorly and inferiorly with good visualization of the bladder. The bladder blade was inserted. The vesicouterine peritoneum was identified and entered sharply using Metzenbaum scissors. This incision was extended laterally and the bladder flap was created digitally. The bladder blade was reinserted. The lower uterine segment was incised in a transverse fashion using the scalpel and with digital traction. Clear fluid was noted. The was subsequently delivered by flexing the head to the incision. Body and shoulders followed without difficulty. The cord was clamped and cut. The infant was subsequently handed to the awaiting customer experience strategist whose presence had been requested.. The placenta was delivered spontaneously intact with a three-vessel cord noted. The uterus was exteriorized and cleared of all clots and debris. The uterine incision was repaired in 2 layers using 0 monocryl. Hemostasis was visualized. Hemostasis was visualized bilaterally. The uterus was returned to the abdomen. The uterine incision was reexamined and it was noted to be hemostatic. The pelvis was copiously irrigated. The fascia was closed with 1 PDS suture, and the skin was closed with 3-0 monocryl. Sponge, lap, and instrument counts were correct x2. The patient was stable at the completion of the procedure and was subsequently transferred to the recovery room in stable condition. Diagnosis: Stroke: No - Discharge Data Discharge Date: 12/31/18 Discharge Disposition: Home, Self-Care 01 Condition: Good - Discharge Diagnosis/Problem(s) (1) delivery, delivered, current hospitalization SNOMED Code(s): 575091707 ICD Code: O82 - ENCOUNTER FOR DELIVERY WITHOUT INDICATION Status: Acute Current Visit: Yes (2) H/O section complicating SNOMED Code(s): 298259383, 935679868 ICD Code: O34.219 - MATERNAL CARE FOR UNSP TYPE SCAR FROM PREVIOUS DEL Status: Acute Current Visit: Yes (3) H/O section SNOMED Code(s): 265570211 ICD Code: Z98.891 - HISTORY OF UTERINE SCAR FROM PREVIOUS SURGERY Status: Acute Current Visit: Yes (4) 38 weeks gestation of SNOMED Code(s): 46631150 ICD Code: Z3A.38 - 38 WEEKS GESTATION OF Status: Acute Current Visit: Yes - Patient Summary/Data Operative Procedure(s) Performed: repeat section Complications: None Consults: None Hospital Course: Uneventful - Patient Instructions Diet: Usual Diet as Tolerated Driving: Do Not Drive (2 weeks) Showering/Bathing: May Shower, No Tub Bathing/Swimming (x6 weeks) Wound/Incision Care: Keep Operative Site/Wound Site Clean and Dry Notify Provider of: Fever, Increased Pain, Swelling and Redness, Drainage, Nausea and/or Vomiting - Discharge Plan *PRESCRIPTION DRUG MONITORING PROGRAM REVIEWED*: Not Applicable *COPY OF PRESCRIPTION DRUG MONITORING REPORT IN PATIENT AMADOR: Not Applicable Home Medications: Home Meds PNV95/Ferrous Fumarate/FA [ Tablet] 1 tab PO DAILY 06/08/18 [History] Acetaminophen [Tylenol] 650 mg PO Q6HR PRN 12/29/18 [History] Ferrous Sulfate [Iron] 325 mg PO TID 12/29/18 [History] Ibuprofen [Motrin] 600 mg PO Q6H PRN tablet 12/31/18 [Rx] Lanolin [Lansinoh HPA] 1 applic TOP ASDIRECTED PRN tube 12/31/18 [Rx] Patient Handouts: Delivery, Care After, Home Care Instructions for Mom Referrals: Kat Martinez MD [Primary Care Provider] - (per Dr Martinez instructions) - Discharge Summary/Plan Comment DC Time >30 min.: No - Patient Data Vitals - Most Recent: Last Vital Signs Temp 98.8 F 12/31/18 04:18 Pulse 64 12/31/18 04:18 Resp 14 12/31/18 04:18 BP 110/65 12/31/18 04:18 Pulse Ox 98 12/31/18 04:18 Weight - Most Recent: 191 lb 12.8 oz Med Orders - Current: Current Medications Diphenhydramine HCl (Benadryl) 25 mg IVPUSH Q6H PRN PRN Reason: Itching or Nausea Emollient Ointment (Lansinoh Hpa) 0 gm TOP ASDIRECTED PRN PRN Reason: Sore Nipples Last Admin: 12/29/18 15:48 Dose: 1 applic Ephedrine Sulfate (Ephedrine Sulfate) 5 mg IVPUSH SEECOMMENT PRN PRN Reason: Other Sodium Chloride (Normal Saline) 1,000 mls @ 200 mls/hr IV ASDIRECTED [facility] Last Admin: 12/30/18 06:39 Dose: 125 mls/hr Ibuprofen (Motrin) 600 mg PO Q6H PRN PRN Reason: mild pain or fever Last Admin: 12/30/18 22:39 Dose: 600 mg Naloxone HCl (Narcan) 0.1 mg IVPUSH SEECOMMENT PRN PRN Reason: Respiratory Depression Ondansetron HCl (Zofran) 4 mg IVPUSH Q8H PRN PRN Reason: Nausea Last Admin: 12/29/18 16:58 Dose: 4 mg Discontinued Medications Bupivacaine HCl (Marcaine 0.5%) Confirm Administered Dose 30 ml .ROUTE .STK-MED ONE Stop: 12/29/18 12:51 Last Admin: 12/29/18 13:46 Dose: 20 ml Cefazolin Sodium (Ancef) Confirm Administered Dose 1 gm .ROUTE .STK-MED ONE Stop: 12/29/18 13:27 Cefazolin Sodium (Ancef) Confirm Administered Dose 1 gm .ROUTE .STK-MED ONE Stop: 12/29/18 13:28 Citric Acid/Sodium Citrate (Bicitra Solution) 30 ml PO ONETIME ONE Stop: 12/29/18 12:28 Last Admin: 12/29/18 12:51 Dose: 30 ml Cefazolin Sodium/Dextrose 2 gm (/ Premix) 50 mls @ 100 mls/hr IV ONETIME ONE Stop: 12/29/18 13:29 Last Admin: 12/29/18 14:06 Dose: Not Given Lactated Ringer's (Ringers, Lactated) 1,000 mls @ 125 mls/hr IV ASDIRECTED [facility] Last Admin: 12/29/18 12:40 Dose: 125 mls/hr Oxytocin/Lactated Ringer's (Pitocin In Lr 10 Units/1,000 Ml) 10 unit in 1,000 mls @ 100 mls/hr IV ASDIRECTED [facility] Lactated Ringer's (Ringers, Lactated) Confirm Administered Dose 1,000 mls @ as directed .ROUTE .STK-MED ONE Stop: 12/29/18 14:05 Dextrose/Lactated Ringer's (Dextrose 5%-Lactated Ringers) 1,000 mls @ 125 mls/ hr IV ASDIRECTED [facility] Stop: 12/29/18 22:58 Last Admin: 12/29/18 16:58 Dose: 125 mls/hr Sodium Chloride (Normal Saline) 500 mls @ 499.445 mls/hr IV ONETIME ONE Stop: 12/29/18 23:04 Last Admin: 12/29/18 22:28 Dose: 499.445 mls/hr Ketorolac Tromethamine (Toradol) Confirm Administered Dose 30 mg .ROUTE .STK- MED ONE Stop: 12/29/18 13:58 Ketorolac Tromethamine (Toradol) 30 mg IVPUSH Q6H [facility] Stop: 12/30/18 08:01 Last Admin: 12/30/18 09:52 Dose: 30 mg Metoclopramide HCl (Reglan) 10 mg IVPUSH ONETIME ONE Stop: 12/29/18 12:28 Last Admin: 12/29/18 12:51 Dose: 10 mg Midazolam HCl (Versed 1 Mg/Ml) Confirm Administered Dose 2 mg .ROUTE .STK-MED ONE Stop: 12/29/18 14:10 Morphine Sulfate (Duramorph Pf) Confirm Administered Dose 10 mg .ROUTE .STK-MED ONE Stop: 12/29/18 12:38 Nalbuphine HCl (Nubain) 10 mg IVPUSH Q2H PRN PRN Reason: Pain Oxytocin (Pitocin) Confirm Administered Dose 10 unit .ROUTE .STK-MED ONE Stop: 12/29/18 12:40 Oxytocin (Pitocin) Confirm Administered Dose 10 unit .ROUTE .STK-MED ONE Stop: 12/29/18 12:40 Oxytocin (Pitocin) Confirm Administered Dose 10 unit .ROUTE .STK-MED ONE Stop: 12/29/18 12:41 Oxytocin (Pitocin) Confirm Administered Dose 10 unit .ROUTE .K-MED ONE Stop: 12/29/18 13:53 Sodium Chloride (Saline Flush) 10 ml FLUSH ASDIRECTED PRN PRN Reason: Keep Vein Open
[2018-12-31 10:25] VITALS: BP 106/71
== END 2018-12-31 10:55 | disposition home or self-care (01) | DRG 788 ==
LOC: JD.OB 12:18
PROVIDERS: ADMIT Obstetrics & Gynecology; ATTEND Obstetrics & Gynecology
PROC: 10D00Z1 Extraction of Products of Conception, Low, Open Approach (ICD-10-PCS; principal; 2018-12-29)
DX: O34.219 Maternal care for unspecified type scar from previous cesarean delivery (principal); O99.02 Anemia complicating childbirth; D64.9 Anemia, unspecified; Z3A.38 38 weeks gestation of pregnancy; Z37.0 Single live birth; Z79.899 Other long term (current) drug therapy
CPT/HCPCS: 01961; 36415; 59025; 80053; 85025; 85027; 86592; 86850; 86900; 86901; A9270-GY; J0690; J1885; J2250; J2270; J2405; J2590; J2765; J3490; J7040; J7042; J7120

== ENCOUNTER 2019-08-19 11:26 | Emergency (ER) | payer SELFPAY ==
--- NOTE | 2019-08-19 11:41 | EDM.PDOC ---
ED HPI GENERAL MEDICAL PROBLEM - General Chief Complaint: COMPUTER REPAIRER Problem Stated Complaint: 6 WEEKS PREG AND BLEEDING Time Seen by Provider: 08/19/19 11:41 Source of Information: Reports: Patient, RN Notes Reviewed History Limitations: Reports: No Limitations - History of Present Illness INITIAL COMMENTS - FREE TEXT/NARRATIVE: Patient is a 24-year-old female who presents to the ED for evaluation of vaginal bleeding and . Patient notes that she is around 6 weeks along. She did confirm this with a home test. She believes her last menstrual period to be July 05, 2019. She is a G4, P2, with 1 spontaneous miscarriage. She has not set up care with an COMPUTER REPAIRER at this time as she believed it was a little bit too early. She states that she was experienced some cramping last night that she would rated about a 4 or 5 out of 10, with some light bleeding. She noted a light pink tinge, but states that it has increased to a darker red color over the course of last night and through this morning. She states that she was using a panty liner to catch the bleeding, and she has only changed through 2 of them and is not currently wearing a pad at this ED visit. She states that she thought she passed some clot-like material, but she notes that this was much smaller than dime sized. She notes that she has a mild amount of nausea and one episode of vomiting this morning, but she does not have any other sick-like symptoms at this time. She denies any dysuria, urinary frequency or urgency. She has seen Dr. Martinez and Dr. Perez for COMPUTER REPAIRER in the past, and states that she would tentatively see Dr. Martinez for this . She does also state that she is O- by blood type. Bilateral Lower Pelvic Pain Score (Numeric/FACES): 4 - Related Data Allergies Allergy/AdvReac Type Severity Reaction Status Date / Time amoxicillin [Amoxicillin] Allergy Hives Verified 01/13/19 08:24 Home Meds: Home Meds [id number]/Iron Fumarate/FA/DSS [ 19 Tablet] 1 tab PO DAILY 08/19/19 [ History] Past Medical History HEENT History: Reports: Impaired Vision Gastrointestinal History: Reports: GERD Genitourinary History: Reports: Renal Calculus, UTI, Recurrent COMPUTER REPAIRER History: Reports: , Spontaneous : 4 Para: 2 (1 spontaneous ) Other COMPUTER REPAIRER History: C/S 11/14/17. 2015 Hematologic History: Reports: Other (See Below) Other Hematologic History: Low platelets - Past Surgical History HEENT Surgical History: Reports: Oral Surgery, Tonsillectomy Female Surgical History: Reports: Section (x 2) Social & Family History - Family History Family Medical History: Noncontributory - Tobacco Use Smoking Status *Q: Never Smoker - Caffeine Use Caffeine Use: Reports: Soda Other Caffeine Use: Occasional - Recreational Drug Use Recreational Drug Use: No - Living Situation & Occupation Living situation: Reports: Occupation: Unemployed ED ROS GENERAL - Review of Systems Review Of Systems: See Below Constitutional: Denies: Fever, Chills Respiratory: Denies: Shortness of Breath Cardiovascular: Denies: Chest Pain GI/Abdominal: Reports: Abdominal Pain (low abdominal cramping), Nausea, Vomiting. Denies: Constipation, Diarrhea : Reports: Pain (pelvic cramping), Other (light vaginal bleeding). Denies: Discharge, Dysuria, Frequency, Urgency Musculoskeletal: Denies: Back Pain ED EXAM - Physical Exam Exam: See Below Exam Limited By: No Limitations General Appearance: Alert, WD/WN, No Apparent Distress Eye Exam: Bilateral Eye: EOMI, Normal Inspection, PERRL Ears: Normal External Exam Nose: Normal Inspection Throat/Mouth: Normal Inspection, Normal Lips, Normal Teeth, Normal Gums, Normal Oropharynx, Normal Voice, No Airway Compromise Head: Atraumatic, Normocephalic Neck: Normal Inspection Respiratory/Chest: No Respiratory Distress, Lungs Clear, Normal Breath Sounds, No Accessory Muscle Use, Chest Non-Tender Cardiovascular: Normal Peripheral Pulses, Regular Rate, Rhythm, No Murmur GI/Abdominal Exam: Normal Bowel Sounds, Soft, No Distention, No Mass, Tender ( see assessment) (Female) Exam: Normal External Exam, Uterine Tenderness (pt had slight tenderness on palpation of uterus, no obvious adnexal tenderness), Vaginal Discharge (scant amount of brownish discharge on speculum). No: Cervical Dilatation, Products of Conception, Tissue Present in Cervix/Vagina, Vaginal Bleeding Heart Tones: Not [place] Movement: Not Appreciated Extremities: Normal Inspection, Normal Capillary Refill Neurological: Alert, Oriented, Normal Cognition, No Motor/Sensory Deficits Psychiatric: Normal Affect, Normal Mood Skin Exam: Warm, Dry, Intact, Normal Color, No Rash Course - Vital Signs Last Recorded V/S: Last Vital Signs Temp 99.0 F 08/19/19 11:40 Pulse 85 08/19/19 11:40 Resp 20 08/19/19 11:40 BP 113/70 08/19/19 11:40 Pulse Ox 100 08/19/19 11:40 - Orders/Labs/Meds Orders: Active Orders 24 hr Category Date Time Status Peripheral IV Care [RC] . DIRECTED Care 08/19/19 11:45 Active CULTURE URINE [RM] Routine Lab 08/19/19 12:32 Received Sodium Chloride 0.9% [Saline Flush] Med 08/19/19 11:44 Active 10 ml FLUSH ASDIRECTED PRN Peripheral IV Insertion Adult [OM.PC] Stat Oth 08/19/19 11:44 Ordered Medication Orders Sodium Chloride (Saline Flush) 10 ml FLUSH ASDIRECTED PRN PRN Reason: Keep Vein Open Last Admin: 08/19/19 12:00 Dose: 10 ml Labs: Laboratory Tests 08/19/19 08/19/19 08/19/19 Range/Units 12:00 12:00 12:00 WBC 3.94 L (3.98-10.04) K/mm3 RBC 4.83 (3.98-5.22) M/mm3 Hgb 9.7 L (11.2-15.7) gm/dl Hct 32.1 L (34.1-44.9) % MCV 66.5 L (79.4-94.8) fl MCH 20.1 L (25.6-32.2) pg MCHC 30.2 L (32.2-35.5) g/dl RDW Std Deviation 43.1 (36.4-46.3) fL Plt Count 178 L (182-369) K/mm3 MPV TNP Neut % (Auto) 56.0 (34.0-71.1) % Lymph % (Auto) 32.0 (19.3-51.7) % [place] % (Auto) 9.9 (4.7-12.5) % Eos % (Auto) 1.3 (0.7-5.8) Baso % (Auto) 0.5 (0.1-1.2) % Neut # (Auto) 2.21 (1.56-6.13) K/mm3 Lymph # (Auto) 1.26 (1.18-3.74) K/mm3 [place] # (Auto) 0.39 H (0.24-0.36) K/mm3 Eos # (Auto) 0.05 (0.04-0.36) K/mm3 Baso # (Auto) 0.02 (0.01-0.08) K/mm3 Manual Slide Review Abnormal smear HCG, Qual Positive H (NEGATIVE) HCG, Quant 67025.0 mIU/mL Urine Color (Yellow) Urine Appearance (Clear) Urine pH (5.0-8.0) Ur Specific [place] (1.005-1.030) Urine Protein (Negative) Urine Glucose (UA) (Negative) Urine Ketones (Negative) Urine Occult Blood (Negative) Urine Nitrite (Negative) Urine Bilirubin (Negative) Urine Urobilinogen (0.2-1.0) Ur Leukocyte Esterase (Negative) Urine RBC (0-5) /hpf Urine WBC (0-5) /hpf Ur Squamous Epith Cells (0-5) /hpf Amorphous Sediment (NOT SEEN) /hpf Urine Bacteria (FEW) /hpf Urine Mucus (FEW) /hpf Blood Type Gel Antibody Screen Rhogam Indicated 08/19/19 08/19/19 08/19/19 Range/Units 12:00 12:00 12:32 WBC (3.98-10.04) K/mm3 RBC (3.98-5.22) M/mm3 Hgb (11.2-15.7) gm/dl Hct (34.1-44.9) % MCV (79.4-94.8) fl MCH (25.6-32.2) pg MCHC (32.2-35.5) g/dl RDW Std Deviation (36.4-46.3) fL Plt Count (182-369) K/mm3 MPV Neut % (Auto) (34.0-71.1) % Lymph % (Auto) (19.3-51.7) % [place] % (Auto) (4.7-12.5) % Eos % (Auto) (0.7-5.8) Baso % (Auto) (0.1-1.2) % Neut # (Auto) (1.56-6.13) K/mm3 Lymph # (Auto) (1.18-3.74) K/mm3 [place] # (Auto) (0.24-0.36) K/mm3 Eos # (Auto) (0.04-0.36) K/mm3 Baso # (Auto) (0.01-0.08) K/mm3 Manual Slide Review HCG, Qual (NEGATIVE) HCG, Quant mIU/mL Urine Color Yellow (Yellow) Urine Appearance Clear (Clear) Urine pH 5.5 (5.0-8.0) Ur Specific [place] > or = 1.030 (1.005-1.030) Urine Protein Trace H (Negative) Urine Glucose (UA) Negative (Negative) Urine Ketones 2+ H (Negative) Urine Occult Blood 2+ H (Negative) Urine Nitrite Negative (Negative) Urine Bilirubin 1+ H (Negative) Urine Urobilinogen 1.0 (0.2-1.0) Ur Leukocyte Esterase Negative (Negative) Urine RBC 5-10 H (0-5) /hpf Urine WBC 0-5 (0-5) /hpf Ur Squamous Epith Cells 5-10 H (0-5) /hpf Amorphous Sediment Few H (NOT SEEN) /hpf Urine Bacteria Moderate H (FEW) /hpf Urine Mucus Many H (FEW) /hpf Blood Type O NEGATIVE O NEGATIVE Gel Antibody Screen Negative Rhogam Indicated Yes Meds: Medications Generic Name Dose Route Start Last Admin Trade Name Freq PRN Reason Stop Dose Admin Sodium Chloride 10 ml 08/19/19 11:44 08/19/19 12:00 Saline Flush FLUSH 10 ml ASDIRECTED PRN Administration Keep Vein Open - Re-Assessments/Exams Free Text/Narrative Re-Assessment/Exam: 08/19/19 12:06 Patient presents to the ED for a possible miscarriage. Have ordered transvaginal ultrasound, hCG testing both qualitative and quantitative to establish clinical , CBC, IV to be placed. Since the patient reported being O-, I will consult with our COMPUTER REPAIRER on-call, this is Dr. Washington today, to see whether or not we should give RhoGam at today's visit pending ultrasound results and other lab results. 08/19/19 13:31 Ultrasound report is still pending at this time. Labs have resulted in the patient's hemoglobin is mildly low at 9.4 with also a decreased hematocrit. Check of previous labs done in January 2019 demonstrate a low hemoglobin of 8.5 at that time. This would suggest more of a chronic anemia type pattern. I will highly recommend that she follow-up with her regular provider for further evaluation and early clinic visit next week if possible. hCG level is 30,439, and her urinalysis shows may be some slight contamination, there was blood present but no nitrites or leukocyte Estrace at this time. I will send it for culture for confirmation. As reported in her HPI, her blood type is O-. 08/19/19 13:[address] Washington after I received the ultrasound results, which demonstrated a single intrauterine gestation at 6 weeks 4 days with a heart rate of 115 bpm. 2. small subchorionic hemorrhage. 3. an area that appears to be an ovarian cyst in nature, with repeat ultrasound according to OB protocol. Dr. Martinez suggest going ahead with the RhoGam at today's visit. Have her follow-up with Dr. Martinez sometime next week. 08/19/19 13:58 Did reassess the patient at bedside, gave her ultrasound results, patient notes that she did know she had low iron levels, and does take iron supplementation. She states that her iron does get quite low during , and was suggestive of possibly increasing her iron intake. I do believe this is something she should do, and I will have her follow-up with her COMPUTER REPAIRER for the possibility of iron infusions if needed. Patient seemed okay with this plan. Departure - Departure Time of Disposition: 13:46 Disposition: Home, Self-Care 01 Condition: Fair Clinical Impression: Threatened - Discharge Information *PRESCRIPTION DRUG MONITORING PROGRAM REVIEWED*: No *COPY OF PRESCRIPTION DRUG MONITORING REPORT IN PATIENT AMADOR: No Instructions: Threatened Miscarriage, [id number], Activity Restriction During , Vaginal Bleeding During , First Trimester, Easy-to- Read Referrals: Kat Martinez MD [Primary Care Provider] - Forms: ED Department Discharge Additional Instructions: You were evaluated in the ER today regarding your abdominal pain/vaginal bleeding in . You did have some labs drawn, and these were within normal limits, your hCG level was 30,439 , your blood type is O-, and you did receive RhoGam at this visit. Your laboratory evaluation also demonstrated that you have a somewhat low hemoglobin, check of your old records show that this seems to be somewhat of a chronic issue for you. You stated that you already take iron supplementation, you may need to increase this. Please discuss this with your COMPUTER REPAIRER for further management as well. Your ultrasound demonstrated an intrauterine gestation with a heart rate of 115 bpm. Your baby has a gestational age of around 6 weeks 4 days by ultrasound. You were given a copy of your ultrasound. The ultrasound also showed a small subchorionic hemorrhage, which is an area of bleeding by or near the sac, please take precautions as noted below. There was also a area that appeared to be an ovarian cyst in nature, and our radiologist recommends that you have this followed up with your next COMPUTER REPAIRER appointment for further management. Recommend that you do not lift anything heavier than a gallon of milk (5 lbs), do not engage in sexual activities, try to get as much pelvic rest as possible for the next few days. Please try not to exert yourself, rest and relax, and take it easy. If you are bleeding through more than 1-2 maxi pads every couple hours, this would be cause for concern to return to the ER for immediate management. Please schedule an appointment with your COMPUTER REPAIRER, Dr. Martinez sometime this week for further management of your . Please return to the ED at any time if your symptoms change or worsen. Sepsis Event Note - Focused Exam Vital Signs: Vital Signs Temp Pulse Resp BP Pulse Ox 08/19/19 11:40 99.0 F 85 20 113/70 100 Date Exam was Performed: 08/19/19 Time Exam was Performed: 15:35 - My Orders Last 24 Hours: My Active Orders 08/19/19 11:44 Sodium Chloride 0.9% [Saline Flush] 10 ml FLUSH ASDIRECTED PRN Peripheral IV Insertion Adult [OM.PC] Stat 08/19/19 11:45 Peripheral IV Care [RC] . DIRECTED 08/19/19 12:32 CULTURE URINE [RM] Routine - Assessment/Plan Last 24 Hours: My Active Orders 08/19/19 11:44 Sodium Chloride 0.9% [Saline Flush] 10 ml FLUSH ASDIRECTED PRN Peripheral IV Insertion Adult [OM.PC] Stat 08/19/19 11:45 Peripheral IV Care [RC] . DIRECTED 08/19/19 12:32 CULTURE URINE [RM] Routine
[2019-08-19 11:42] VITALS: BP 113/70; PULSE 85
[2019-08-19] MEDS ORDERED: Sodium Chloride 0.9% 10 ML Syringe FLUSH PRN (11:44)
--- NOTE | 2019-08-19 13:40 | US ---
First trimester obstetrical ultrasound: Multiple real-time images were obtained transvaginally. Comparison: No previous study for current . Dates: LMP: LMP given as 07/05/19, DISHA 04/10/20, gestational age 6 weeks 3 days Current ultrasound: DISHA 04/09/20, gestational age 6 weeks 4 days Single intrauterine gestation is seen. Amniotic fluid volume is normal. Yolk sac and small pole are seen. Minimal subchorionic hemorrhage is noted. Ovary is not optimally seen but showed no discrete abnormality. There is a cystic area being seen posterior to the uterus measuring 3.5 x 4.0 x 4.2 cm most likely representing adnexal cyst or exophytic ovarian cyst. Measurements: [place]-rump length: 0.67 cm - 6 weeks 4 days Heart rate: 115 BPM Impression: 1. Single intrauterine gestation. Dates as noted above. 2. Small subchorionic hemorrhage. 3. Cystic area behind the uterus measuring up to 4.2 cm. This has the appearance of a cyst and either represents adnexal cyst or exophytic ovarian cyst. This can be followed up with repeat ultrasound according OB protocol. Diagnostic code #3 This report was dictated in [place] Standard Time
== END 2019-08-19 16:16 | disposition home or self-care (01) ==
LOC: JD.ED 11:26
DX: O20.0 Threatened abortion (principal); Z3A.01 Less than 8 weeks gestation of pregnancy; Z88.0 Allergy status to penicillin
CPT/HCPCS: 36415; 76817; 81001; 84702; 84703; 85025; 86850; 86900; 86901; 87086; 99284; J2790; 99283

== ENCOUNTER 2020-03-31 15:34 | Inpatient (IN) | payer MEDICAID ==
[2020-03-31] MEDS ORDERED: ceFAZolin 2 GM in Premix Bag 1 BAG IV ONE (16:58)
[2020-03-31] MEDS ORDERED: Sodium Chloride 0.9% 10 ML Syringe FLUSH PRN ×2 (16:58→17:22)
[2020-03-31] MEDS ORDERED: Metoclopramide 10 MG/2 ML SDV IVPUSH ONE (16:58)
[2020-03-31] MEDS ORDERED: Citric Acid/Sodium Citrate Solution 30 ML Cup PO ONE (16:58)
[2020-03-31] MEDS ORDERED: Lactated Ringers 1,000 ML IV SCH ×2 (17:00→17:30)
[2020-03-31] MEDS ORDERED: Oxytocin/Lactated Ringers 10 UNIT/1,000 ML BAG IV SCH (17:00)
--- NOTE | 2020-03-31 17:21 | PCM.LDHP ---
L&D History of Present Illness - General Date of Service: 03/31/20 Admit Problem/Dx: Patient Status Order with Admit Dx/Problem 03/31/20 16:07 Patient Status [ADT] Routine Admission Diagnosis/Problem Admission Diagnosis/Problem Source of Information: Patient History Limitations: Reports: No Limitations - History of Present Illness Introduction:: Patient is a 24 y/o at 38 4/7 wks who presents for concerns of irregular contractions in setting of two prior c-sections. Contractions mild- moderate. Getting good FM. Notes some mild cough/sore throat she thought was from smoke in the air. - Related Data Allergies/Adverse Reactions: Allergies Allergy/AdvReac Type Severity Reaction Status Date / Time amoxicillin [Amoxicillin] Allergy Hives Verified 03/31/20 16:11 Home Medications: Home Meds Prenat 115/Iron Fum/Folic/Dss [ 19 Tablet] 1 tab PO DAILY 08/19/19 [History] Ferrous Sulfate 325 mg PO DAILY 02/12/20 [History] Tamsulosin [Flomax] 1 tab PO DAILY 02/12/20 [History] Acetaminophen 325 mg PO Q6H PRN 03/31/20 [History] Past Medical History HEENT History: Reports: Impaired Vision Genitourinary History: Reports: Renal Calculus LAB COORDINATOR History: Reports: , Spontaneous : 4 Para: 2 LMP (Approximate): Neurological History: Reports: Migraines - Past Surgical History HEENT Surgical History: Reports: Adenoidectomy, Oral Surgery, Tonsillectomy Female Surgical History: Reports: Section (x 2) Social & Family History - Family History Family Medical History: Noncontributory - Tobacco Use Smoking Status *Q: Never Smoker - Caffeine Use Caffeine Use: Reports: Soda Other Caffeine Use: Occasional - Alcohol Use Alcohol Use History: No - Recreational Drug Use Recreational Drug Use: No - Living Situation & Occupation Living situation: Reports: Occupation: Unemployed H&P Review of Systems - Review of Systems: Review Of Systems: See Below General: Reports: No Symptoms Pulmonary: Reports: No Symptoms Cardiovascular: Reports: No Symptoms Gastrointestinal: Reports: Abdominal Pain (contractions ) Genitourinary: Reports: No Symptoms Musculoskeletal: Reports: No Symptoms Psychiatric: Reports: No Symptoms Neurological: Reports: No Symptoms L&D Exam - Exam Exam: See Below - Vital Signs Weight: 82.1 kg - OB Specific Contraction Intensity: Irritability Movement: Active Heart Tones: Present Heart Tones per Min: 125 Heart Rate (FHR) Variability: Moderate (6-25 bmp) - Rao Score Rao Score Cervix Position: Posterior Rao Score Consistency: Soft Rao Score Effacement: 31-50% Rao Score Dilation: 1-2 cm Rao Score Infant's Station: -2 Rao Score Total: 5 - Exam General: Alert, Oriented, Cooperative Lungs: Clear to Auscultation, Normal Respiratory Effort Cardiovascular: Regular Rate, Regular Rhythm GI/Abdominal Exam: Soft, Non-Tender Rectal Exam: Normal Exam Genitourinary: Normal external exam Extremities: Normal Inspection Skin: Warm, Dry, Intact - Patient Data Lab Results Last 24 hrs: Laboratory Results - last 24 hr 03/31/20 03/31/20 Range/Units 15:57 16:08 Membrane Rupture Negative SARS CoV-2 RNA Rapid SHARI Positive H (NEGATIVE) - Problem List (1) COVID-19 affecting in third trimester SNOMED Code(s): 896987028, 369445941 ICD Code: O98.513 - OTHER VIRAL DISEASES COMPLICATING , THIRD TRIMESTER; U07.1 - COVID-19 Status: Acute Current Visit: Yes (2) 38 weeks gestation of SNOMED Code(s): 10814738 ICD Code: Z3A.38 - 38 WEEKS GESTATION OF Status: Acute Current Visit: No (3) H/O section SNOMED Code(s): 232832328 ICD Code: Z98.891 - HISTORY OF UTERINE SCAR FROM PREVIOUS SURGERY Status: Acute Current Visit: No (4) Rh negative state in antepartum period SNOMED Code(s): 548195597 ICD Code: O26.899 - OTH RELATED CONDITIONS, UNSPECIFIED TRIMESTER; Z67.91 - UNSPECIFIED BLOOD TYPE, RH NEGATIVE Status: Acute Current Visit: Yes (5) GBS (group B Streptococcus carrier), +RV culture, currently SNOMED Code(s): 3962805992028, 722304730, 2940422560968 ICD Code: O99.820 - STREPTOCOCCUS B CARRIER STATE COMPLICATING Status: Acute Current Visit: Yes Problem List Initiated/Reviewed/Updated: Yes Orders Last 24hrs: Active Orders 24 hr Category Date Time Status Patient Status [ADT] Routine ADT 03/31/20 16:07 Active Communication Order [RC] ROUTINE Care 03/31/20 16:58 Active Heart Tones [RC] PER UNIT ROUTINE Care 03/31/20 16:58 Active Non Stress Test [RC] PER UNIT ROUTINE Care 03/31/20 16:07 Active Peripheral IV Care [RC] . DIRECTED Care 03/31/20 16:59 Active Procedure Site Prep Instruct [RC] ASDIRECTED Care 03/31/20 16:58 Active Verify Patient Consent Obtain [RC] PER UNIT ROUTINE Care 03/31/20 16:58 Active Vital Signs [RC] PER UNIT ROUTINE Care 03/31/20 16:07 Active Nothing Per Oral Diet [DIET] Diet 03/31/20 Dinner Active CBC W/O DIFF,HEMOGRAM [HEME] Routine Lab 03/31/20 16:58 Ordered CORONAVIRUS COVID-19 PCR PHL Stat Lab 03/31/20 16:27 Ordered RAPID PLASMA REAGIN,RPR [CHEM] Routine Lab 03/31/20 16:58 Ordered TYPE AND SCREEN [BBK] Routine Lab 03/31/20 16:58 Ordered Lactated Ringers [Ringers, Lactated] 1,000 ml Med 03/31/20 17:00 Active IV ASDIRECTED Oxytocin/Lactated Ringers [Pitocin in LR 10 Units/1,000 Med 03/31/20 17:00 Active ML] 10 unit in 1,000 ml IV ASDIRECTED Sodium Chloride 0.9% [Saline Flush] Med 03/31/20 16:58 Active 10 ml FLUSH ASDIRECTED PRN ceFAZolin [Ancef] 2 gm Med 03/31/20 16:58 Active Premix Bag 1 bag IV ONETIME Peripheral IV Insertion Adult [OM.PC] Routine Oth 03/31/20 16:58 Ordered Schedule Procedure [COMM] Per Unit Routine Oth 03/31/20 16:58 Ordered Resuscitation Status Routine Resus Stat 03/31/20 16:07 Ordered Medication Orders Lactated Ringer's (Ringers, Lactated) 1,000 mls @ 125 mls/hr IV ASDIRECTED JORGE A Cefazolin Sodium/Dextrose 2 gm (/ Premix) 50 mls @ 100 mls/hr IV ONETIME ONE Stop: 03/31/20 17:27 Oxytocin/Lactated Ringer's (Pitocin In Lr 10 Units/1,000 Ml) 10 unit in 1,000 mls @ 100 mls/hr IV ASDIRECTED JORGE A; Protocol Sodium Chloride (Saline Flush) 10 ml FLUSH ASDIRECTED PRN PRN Reason: Keep Vein Open Assessment/Plan Comment:: Patient likely not in labor, however, COVID screen did return positive. Reviewed with patient that confirmatory testing will be sent to state but that there is a delay in getting back result. We will move forward with today at 38 4/7 wks in case true finding and patient becomes more ill. She agrees. * Consent signed * Labs ordered * Ancef OCTOR (previously tolerated with last ) * NPO
[2020-03-31] MEDS ORDERED: Ondansetron 4 MG/2 ML SDV IVPUSH PRN (17:22)
[2020-03-31] MEDS ORDERED: fentaNYL 100 MCG/2 ML SDV IVPUSH PRN (17:22)
[2020-03-31] MEDS ORDERED: diphenhydrAMINE 50 MG/ML SDV IVPUSH PRN ×2 (17:22→19:50)
[2020-03-31] MEDS ORDERED: Lidocaine 1%/Sod Bicarbonate in NS 8.4% 1 ML Syringe IDERM PRN (17:22)
[2020-03-31] MEDS ORDERED: Morphine PF 10 MG/10 ML SDV ONE (17:25)
[2020-03-31] MEDS ORDERED: Oxytocin 10 Units/1 ML SDV ONE (17:25)
[2020-03-31] MEDS ORDERED: ePHEDrine Sulfate/0.9% NaCl/Pf 25 MG/5 ML SYRINGE IV ONE ×2 (17:25→18:51)
[2020-03-31] MEDS ORDERED: ceFAZolin 1 GM Vial ONE (17:25)
[2020-03-31] MEDS ORDERED: fentaNYL 100 MCG/2 ML SDV ONE (17:25)
--- NOTE | 2020-03-31 17:25 | PCM.OPNOTE ---
- General Post-Op/Procedure Note Date of Surgery/Procedure: 03/31/20 Operative Procedure(s): Repeat low transverse with vacuum assistance Findings: Minimal scar tissue between the rectus and fascia. Minimal scar tissue between the bladder and lower uterine segment. Baby boy in vertex presentation. Weight of 7 lbs 14 oz. APGARS of 8 & 9. Pre Op Diagnosis: 38 4/7 wks. Hx of x 2. Irregular contractions. COVID screening positive Post-Op Diagnosis: Same Anesthesia Technique: Spinal Primary Surgeon: María Washington Anesthesia Provider: Surendra Varela Position Classification Specialist: Ayala Varner Reason Position Classification Specialist Was Necessary: BMI of patient. Speed/safety of procedure Pathology: Cord blood collected. Placenta discarded. Fluid Replacement, Intraop: 1,500 Output, Urine Amount: 150 EBL in mLs: 800 Complications: None Condition: Good Free Text/Narrative:: The risks, benefits, indications, potential complications, and alternatives were explained to the patient and informed consent obtained. After induction of anesthesia, the patient was placed in a supine position and then draped and prepped in the usual sterile manner. A Pfannenstiel incision was made and carried down through the subcutaneous tissue to the fascia. Fascial incision was made and extended transversely. The fascia was from the underlying rectus tissue superiorly and inferiorly. The peritoneum was identified and entered. Peritoneal incision was extended longitudinally. The utero-vesical peritoneal reflection was incised transversely and the bladder flap was bluntly freed from the lower uterine segment. A low transverse uterine incision was made sharply with a scalpel and extended bluntly in a cephalocaudad direction. A baby boy was delivered from vertex presentation with vacuum assistance. APGARS as above. After the umbilical cord was clamped and cut cord blood was obtained for evaluation. The placenta was removed intact and appeared normal. The uterus was exteriorized and cleared of clots. The uterine outline, tubes and ovaries appeared normal. The uterine incision was closed with running locked sutures of 0 Vicryl. Hemostasis was noted. The uterus was then placed back into the abdomen. The infracolic gutters were cleared of blood clots. The fascia was then reapproximated with running sutures of 0 Vicryl. The subcutaneous tissue was irrigated with sterile warm normal saline, hemostasis obtained with cautery. This layer was closed with a running 0 Vicryl. The skin was reapproximated with running Subcuticular 4-0 monocryl sutures. Instrument, sponge, and needle counts were correct prior the abdominal closure and at the conclusion of the case.
--- NOTE | 2020-03-31 19:05 | PCM.PREANE ---
Preanesthetic Assessment - Procedure Proposed Procedure: Repeat - Anesthesia/Transfusion/Family Hx Anesthesia History: Prior Anesthesia Without Reaction Family History of Anesthesia Reaction: No Transfusion History: Unknown Intubation History: Unknown Additional History: Patient denies difficulties with anesthesia or intubation - Review of Systems General: Malaise Pulmonary: No Symptoms Cardiovascular: No Symptoms Gastrointestinal: Vomiting Neurological: No Symptoms Other: Reports: None - Physical Assessment NPO Status Date: 03/31/20 (Full stomach - ate a [employer] a little over an hour ago) Vital Signs: Last Vital Signs Temp 36.3 C 03/31/20 19:00 Pulse 71 03/31/20 19:00 Resp 14 03/31/20 19:00 BP 102/58 L 03/31/20 19:00 Pulse Ox 99 03/31/20 19:00 Height: 5 ft 3 in Weight: 82.1 kg ASA Class: 1E Mental Status: Alert & Oriented x3 Airway Class: Mallampati = 2 Dentition: Reports: Normal Dentition Thyro-Mental Finger Breadths: 3 Mouth Opening Finger Breadths: 3 ROM/Head Extension: Full Lungs: Clear to Auscultation, Normal Respiratory Effort Cardiovascular: Regular Rate, Regular Rhythm Other: Patient with history of low platelets without history of dysfunction - Lab Values: Laboratory Last Values WBC 4.64 K/mm3 (3.98-10.04) 03/31/20 15:15 RBC 4.62 M/mm3 (3.98-5.22) 03/31/20 15:15 Hgb 11.3 gm/dl (11.2-15.7) D 03/31/20 15:15 Hct 36.2 % (34.1-44.9) 03/31/20 15:15 MCV 78.4 fl (79.4-94.8) L D 03/31/20 15:15 MCH 24.5 pg (25.6-32.2) L 03/31/20 15:15 MCHC 31.2 g/dl (32.2-35.5) L 03/31/20 15:15 Plt Count 95 K/mm3 (182-369) L D 03/31/20 15:15 Membrane Rupture Negative 03/31/20 15:57 SARS CoV-2 RNA Rapid SHARI Positive (NEGATIVE) H 03/31/20 16:08 Blood Type O NEGATIVE 03/31/20 15:15 Gel Antibody Screen Positive 03/31/20 15:15 Crossmatch See Detail 03/31/20 15:15 - Allergies Allergies/Adverse Reactions: Allergies Allergy/AdvReac Type Severity Reaction Status Date / Time amoxicillin [Amoxicillin] Allergy Hives Verified 03/31/20 16:11 - Anesthesia Plan Pre-Op Medication Ordered: Antacids - Acknowledgements Anesthesia Type Planned: Spinal Pt an Appropriate Candidate for the Planned Anesthesia: Yes Alternatives and Risks of Anesthesia Discussed w Pt/Guardian: Yes Pt/Guardian Understands and Agrees with Anesthesia Plan: Yes Additional Comments: Spoke with Dr. Washington about getting hematology consult during follow-up to investigate history of low platelet counts. PreAnesthesia Questionnaire HEENT History: Reports: Impaired Vision Genitourinary History: Reports: Renal Calculus [employer] History: Reports: , Spontaneous Neurological History: Reports: Migraines Hematologic History: Reports: Other (See Below) Other Hematologic History: Thrombocytopenia - Past Surgical History HEENT Surgical History: Reports: Adenoidectomy, Oral Surgery, Tonsillectomy Female Surgical History: Reports: Section (x 2) - SUBSTANCE USE Smoking Status *Q: Never Smoker Recreational Drug Use History: No - HOME MEDS Home Medications: Home Meds Prenat 115/Iron Fum/Folic/Dss [ 19 Tablet] 1 tab PO DAILY 08/19/19 [History] Ferrous Sulfate 325 mg PO DAILY 02/12/20 [History] Tamsulosin [Flomax] 1 tab PO DAILY 02/12/20 [History] Acetaminophen 325 mg PO Q6H PRN 03/31/20 [History] - CURRENT (IN HOUSE) MEDS Current Meds: Current Medications Diphenhydramine HCl (Benadryl) 25 mg IVPUSH Q6H PRN PRN Reason: Pruritis Fentanyl (Sublimaze) 50 mcg IVPUSH Q5M PRN PRN Reason: Pain Lactated Ringer's (Ringers, Lactated) 1,000 mls @ 125 mls/hr IV ASDIRECTED JORGE A Last Admin: 03/31/20 17:10 Dose: 125 mls/hr Documented by: Oxytocin/Lactated Ringer's (Pitocin In Lr 10 Units/1,000 Ml) 10 unit in 1,000 mls @ 100 mls/hr IV ASDIRECTED JORGE A; Protocol Lactated Ringer's (Ringers, Lactated) 1,000 mls @ 125 mls/hr IV ASDIRECTED [facility] Lidocaine/Sodium Bicarbonate (Buffered Lidocaine 1% In Ns 8.4%) 0.25 ml IDERM ONETIME PRN PRN Reason: Prior to IV Start Ondansetron HCl (Zofran) 4 mg IVPUSH ONETIME PRN PRN Reason: Nausea/Vomiting Sodium Chloride (Saline Flush) 10 ml FLUSH ASDIRECTED PRN PRN Reason: Keep Vein Open Sodium Chloride (Saline Flush) 10 ml FLUSH ASDIRECTED PRN PRN Reason: Keep Vein Open Discontinued Medications Cefazolin Sodium (Ancef) Confirm Administered Dose 2 gm .ROUTE .STK-MED ONE Stop: 03/31/20 17:26 Citric Acid/Sodium Citrate (Bicitra Solution) 30 ml PO ONETIME ONE Stop: 03/31/20 16:59 Last Admin: 03/31/20 17:18 Dose: 30 ml Documented by: Ephedrine Sulfate (Ephedrine 25 Mg/5 Ml Syringe) Confirm Administered Dose 25 mg IV .STK-MED ONE Stop: 03/31/20 17:26 Ephedrine Sulfate (Ephedrine 25 Mg/5 Ml Syringe) Confirm Administered Dose 25 mg IV .STK-MED ONE Stop: 03/31/20 18:52 Fentanyl (Sublimaze) Confirm Administered Dose 100 mcg .ROUTE .STK-MED ONE Stop: 03/31/20 17:26 Cefazolin Sodium/Dextrose 2 gm (/ Premix) 50 mls @ 100 mls/hr IV ONETIME ONE Stop: 03/31/20 17:27 Last Admin: 03/31/20 17:19 Dose: 100 mls/hr Documented by: Metoclopramide HCl (Reglan) 10 mg IVPUSH ONETIME ONE Stop: 03/31/20 16:59 Last Admin: 03/31/20 17:19 Dose: 10 mg Documented by: Morphine Sulfate (Duramorph Pf) Confirm Administered Dose 10 mg .ROUTE .STK-MED ONE Stop: 03/31/20 17:26 Oxytocin (Pitocin) Confirm Administered Dose 20 unit .ROUTE .STK-MED ONE Stop: 03/31/20 17:26
--- NOTE | 2020-03-31 19:07 | PCM.POSTAN ---
POST ANESTHESIA ASSESSMENT - MENTAL STATUS Mental Status: Alert, Oriented - VITAL SIGNS Vital Signs: Last Vital Signs Temp 36.3 C 03/31/20 19:00 Pulse 71 03/31/20 19:00 Resp 14 03/31/20 19:00 BP 102/58 L 03/31/20 19:00 Pulse Ox 99 03/31/20 19:00 - RESPIRATORY Respiratory Status: Respiratory Rate WNL, Airway Patent, O2 Saturation Stable - CARDIOVASCULAR CV Status: Pulse Rate WNL, Low Blood Pressure (Resolves with fluid administration, mild trendelenburg, and IV ephedrine. Asymptomatic throughout.) - GASTROINTESTINAL GI Status: No Symptoms - POST OP HYDRATION Hydration Status: Adequate & Stable - OBSERVATIONS Free Text/Narrative:: Routine spinal/MAC for . Patient with some asymptomatic low blood pressures, otherwise VSS, SV, MUE, FAC, CTAB. No additional concerns at this time other positive covid sequelae and hypotension.
[2020-03-31] MEDS ORDERED: Acetaminophen/oxyCODONE 325-5 MG Tab PO PRN (19:50)
[2020-03-31] MEDS ORDERED: Ondansetron 4 MG/2 ML SDV IV PRN (19:50)
[2020-03-31] MEDS ORDERED: Docusate Sodium 100 MG Cap PO PRN (19:50)
[2020-03-31] MEDS ORDERED: Dextrose 5%-Lactated Ringers 1,000 ML IV SCH (19:50)
[2020-03-31] MEDS ORDERED: Naloxone 0.4 MG/ML SDV IVPUSH PRN (19:50)
[2020-04-01] MEDS ORDERED: Ketorolac 30 MG/ML SDV IVPUSH SCH (01:00)
--- NOTE | 2020-04-01 05:53 | PCM.PNPP ---
- General Info Date of Service: 04/01/20 Functional Status: Reports: Pain Controlled, Tolerating Diet, Ambulating - Review of Systems General: Reports: No Symptoms Pulmonary: Reports: No Symptoms. Denies: Shortness of Breath Cardiovascular: Reports: No Symptoms. Denies: Chest Pain Gastrointestinal: Reports: Abdominal Pain (managed with medications ) Genitourinary: Reports: No Symptoms Musculoskeletal: Reports: No Symptoms Neurological: Reports: No Symptoms - Patient Data Vital Signs - Most Recent: Last Vital Signs Temp 37.2 C 04/01/20 01:50 Pulse 83 04/01/20 01:50 Resp 16 04/01/20 01:50 BP 100/80 04/01/20 01:50 Pulse Ox 99 04/01/20 01:50 Weight - Most Recent: 82.1 kg I&O - Last 24 Hours: Intake & Output 03/31/20 03/31/20 04/01/20 14:59 22:59 06:59 Intake Total 2200 1800 Output Total 500 1400 Balance 1700 400 Lab Results - Last 24 Hours: Laboratory Results - last 24 hr 03/31/20 03/31/20 03/31/20 Range/Units 15:15 15:15 15:15 WBC 4.64 (3.98-10.04) K/mm3 RBC 4.62 (3.98-5.22) M/mm3 Hgb 11.3 D (11.2-15.7) gm/dl Hct 36.2 (34.1-44.9) % MCV 78.4 L D (79.4-94.8) fl MCH 24.5 L (25.6-32.2) pg MCHC 31.2 L (32.2-35.5) g/dl RDW Std Deviation (36.4-46.3) fL Plt Count 95 L D (182-369) K/mm3 MPV (9.4-12.3) fl Membrane Rupture RPR Non-reactive (NONREACTIVE) SARS CoV-2 RNA Rapid SHARI (NEGATIVE) Blood Type O NEGATIVE Gel Antibody Screen Positive Crossmatch See Detail 03/31/20 03/31/20 04/01/20 Range/Units 15:57 16:08 05:04 WBC 5.24 (3.98-10.04) K/mm3 RBC 3.76 L (3.98-5.22) M/mm3 Hgb 9.1 L D (11.2-15.7) gm/dl Hct 29.5 L (34.1-44.9) % MCV 78.5 L (79.4-94.8) fl MCH 24.2 L (25.6-32.2) pg MCHC 30.8 L (32.2-35.5) g/dl RDW Std Deviation (36.4-46.3) fL Plt Count 82 L (182-369) K/mm3 MPV (9.4-12.3) fl Membrane Rupture Negative RPR (NONREACTIVE) SARS CoV-2 RNA Rapid SHARI Positive H (NEGATIVE) Blood Type Gel Antibody Screen Crossmatch Med Orders - Current: Current Medications Diphenhydramine HCl (Benadryl) 25 mg IVPUSH Q6H PRN PRN Reason: Itching or Nausea Docusate Sodium (Colace) 100 mg PO Q12H PRN PRN Reason: Constipation Naloxone HCl (Narcan) 0.1 mg IVPUSH SEECOMMENT PRN PRN Reason: Respiratory Depression Ondansetron HCl (Zofran) 4 mg IV Q8H PRN PRN Reason: Nausea/Vomiting Oxycodone/Acetaminophen (Percocet 325-5 Mg) 1 tab PO Q4H PRN PRN Reason: Pain (moderate 4-6) Oxycodone/Acetaminophen (Percocet 325-5 Mg) 2 tab PO Q4H PRN PRN Reason: Pain (severe 7-10) Discontinued Medications Cefazolin Sodium (Ancef) Confirm Administered Dose 0 gm .ROUTE .STK-MED ONE Stop: 03/31/20 17:26 Citric Acid/Sodium Citrate (Bicitra Solution) 30 ml PO ONETIME ONE Stop: 03/31/20 16:59 Last Admin: 03/31/20 17:18 Dose: 30 ml Documented by: Diphenhydramine HCl (Benadryl) 25 mg IVPUSH Q6H PRN PRN Reason: Pruritis Ephedrine Sulfate (Ephedrine 25 Mg/5 Ml Syringe) Confirm Administered Dose 25 mg IV .STK-MED ONE Stop: 03/31/20 17:26 Ephedrine Sulfate (Ephedrine 25 Mg/5 Ml Syringe) Confirm Administered Dose 25 mg IV .STK-MED ONE Stop: 03/31/20 18:52 Fentanyl (Sublimaze) 50 mcg IVPUSH Q5M PRN PRN Reason: Pain Fentanyl (Sublimaze) Confirm Administered Dose 100 mcg .ROUTE .STK-MED ONE Stop: 03/31/20 17:26 Lactated Ringer's (Ringers, Lactated) 1,000 mls @ 125 mls/hr IV ASDIRECTED [facility] Last Admin: 03/31/20 17:10 Dose: 125 mls/hr Documented by: Cefazolin Sodium/Dextrose 2 gm (/ Premix) 50 mls @ 100 mls/hr IV ONETIME ONE Stop: 03/31/20 17:27 Last Admin: 03/31/20 17:19 Dose: 100 mls/hr Documented by: Oxytocin/Lactated Ringer's (Pitocin In Lr 10 Units/1,000 Ml) 10 unit in 1,000 mls @ 100 mls/hr IV ASDIRECTED [facility]; Protocol Lactated Ringer's (Ringers, Lactated) 1,000 mls @ 125 mls/hr IV ASDIRECTED [facility] Dextrose/Lactated Ringer's (Dextrose 5%-Lactated Ringers) 1,000 mls @ 125 mls/hr IV ASDIRECTED [facility] Stop: 04/01/20 03:49 Last Admin: 03/31/20 21:36 Dose: 125 mls/hr Documented by: Ibuprofen (Motrin) 600 mg PO Q6H PRN PRN Reason: mild pain or fever Ketorolac Tromethamine (Toradol) 30 mg IVPUSH Q6H [facility] Stop: 04/01/20 13:01 Last Admin: 04/01/20 01:18 Dose: 30 mg Documented by: Lidocaine/Sodium Bicarbonate (Buffered Lidocaine 1% In Ns 8.4%) 0.25 ml IDERM ONETIME PRN PRN Reason: Prior to IV Start Metoclopramide HCl (Reglan) 10 mg IVPUSH ONETIME ONE Stop: 03/31/20 16:59 Last Admin: 03/31/20 17:19 Dose: 10 mg Documented by: Morphine Sulfate (Duramorph Pf) Confirm Administered Dose 10 mg .ROUTE .STK-MED ONE Stop: 03/31/20 17:26 Ondansetron HCl (Zofran) 4 mg IVPUSH ONETIME PRN PRN Reason: Nausea/Vomiting Oxytocin (Pitocin) Confirm Administered Dose 20 unit .ROUTE .Cytoguide ONE Stop: 03/31/20 17:26 Sodium Chloride (Saline Flush) 10 ml FLUSH ASDIRECTED PRN PRN Reason: Keep Vein Open Sodium Chloride (Saline Flush) 10 ml FLUSH ASDIRECTED PRN PRN Reason: Keep Vein Open - Infant Interaction Infant Disposition, : [place] in Room with Family Feeding: Bottle Fed Infant Support Person: - Recovery Exam Fundal Tone: Firm Fundal Level: 1 Fingerbreadths Below Umbilicus Fundal Placement: Midline Lochia Amount: Small Lochia Color: Rubra/Red Perineum Description: Intact, Minimal Bruising/Swelling Episiotomy/Laceration: None Bladder Status: Indwelling Catheter in Place - Exam General: Alert, Oriented, Cooperative Lungs: Clear to Auscultation, Normal Respiratory Effort Cardiovascular: Regular Rate, Regular Rhythm Extremities: Normal Inspection Skin: Warm, Dry, Intact Wound/Incisions: Healing Well, No Drainage - Problem List & Annotations (1) COVID-19 affecting in third trimester SNOMED Code(s): 148979921, 224669701 Code(s): O98.513 - OTHER VIRAL DISEASES COMPLICATING , THIRD TRIMESTER; U07.1 - COVID-19 Status: Acute Current Visit: Yes (2) 38 weeks gestation of SNOMED Code(s): 99453389 Code(s): Z3A.38 - 38 WEEKS GESTATION OF Status: Acute Current Visit: No (3) H/O section SNOMED Code(s): 923620403 Code(s): Z98.891 - HISTORY OF UTERINE SCAR FROM PREVIOUS SURGERY Status: Acute Current Visit: No (4) Rh negative state in antepartum period SNOMED Code(s): 622342360 Code(s): O26.899 - OTH RELATED CONDITIONS, UNSPECIFIED TRIMESTER; Z67.91 - UNSPECIFIED BLOOD TYPE, RH NEGATIVE Status: Acute Current Visit: Yes (5) GBS (group B Streptococcus carrier), +RV culture, currently SNOMED Code(s): 6241451795038, 362224533, 0106923952372 Code(s): O99.820 - STREPTOCOCCUS B CARRIER STATE COMPLICATING Status: Acute Current Visit: Yes (6) Thrombocytopenia SNOMED Code(s): 864181977 Code(s): D69.6 - THROMBOCYTOPENIA, UNSPECIFIED Status: Acute Current Visit: Yes - Problem List Review Problem List Initiated/Reviewed/Updated: Yes - My Orders Last 24 Hours: My Active Orders 03/31/20 15:15 ANTIBODY IDENTIFICATION [BBK] Routine PACKED CELLS [RED BLOOD CELLS LP] [BBK] Routine TYPE AND SCREEN [BBK] Routine 03/31/20 16:07 Resuscitation Status Routine 03/31/20 16:45 CORONAVIRUS COVID-19 PCR PHL Stat 03/31/20 Dinner Regular Diet [DIET] 03/31/20 19:50 Acetaminophen/oxyCODONE [Percocet 325-5 MG] 1 tab PO Q4H PRN Acetaminophen/oxyCODONE [Percocet 325-5 MG] 2 tab PO Q4H PRN Docusate Sodium [Colace] 100 mg PO Q12H PRN Naloxone [Narcan] 0.1 mg IVPUSH SEECOMMENT PRN Ondansetron [Zofran] 4 mg IV Q8H PRN diphenhydrAMINE [Benadryl] 25 mg IVPUSH Q6H PRN 03/31/20 19:50 Activity as Tolerated [RC] .Routine Antiembolic Devices [RC] PER UNIT ROUTINE Communication Order [RC] PER UNIT ROUTINE Intake and Output [RC] Q4H May Shower [RC] PER UNIT ROUTINE Notify Provider Intake and Out [RC] ASDIRECTED RT Incentive Spirometry [RC] Q2HWA Vital Signs [RC] 03,,15,21 Assess Lochia [WOMSER] Per Unit Routine Assess Uterine Involution [WOMSER] Per Unit Routine Breast Pump [WOMSER] Per Unit Routine Peripheral IV Discontinue [OM.PC] Routine Sequential Compression Device [OM.PC] Per Unit Routine 04/01/20 18:53 Urinary Catheter Removal [RC] Per Unit Routine - Assessment Assessment:: POD#1 - Plan Plan:: * Patient's platelets on admission 95K and this AM are 82K. Has only received 1 dose of Toradol so far. Will stop and manage pain with Percocet alone. When looking back in platelets were 66K at time of glucola . Will have patient follow up with [facility] after discharge * Baby Rh negative, no need for Rhogam * Routine cares * Bottle feeding
--- NOTE | 2020-04-01 10:02 | PCM48HPAN ---
Post Anesthesia Note - EVALUATION WITHIN 48HRS OF ANESTHETIC Vital Signs in Normal Range: Yes Patient Participated in Evaluation: Yes Respiratory Function Stable: Yes Airway Patent: Yes Cardiovascular Function Stable: Yes Hydration Status Stable: Yes Pain Control Satisfactory: Yes Nausea and Vomiting Control Satisfactory: Yes Mental Status Recovered: Yes Vital Signs: Last Vital Signs Temp 36.8 C 04/01/20 07:26 Pulse 73 04/01/20 07:26 Resp 12 04/01/20 07:26 BP 99/66 04/01/20 07:26 Pulse Ox 100 04/01/20 07:26 - COMMENTS/OBSERVATIONS Free Text/Narrative:: no anesthesia complications noted
[2020-04-01] MEDS: Acetaminophen/oxyCODONE 325-5 MG Tab PO PRN ×3 (11:31→20:05)
[2020-04-01] MEDS ORDERED: Ibuprofen 600 MG Tab PO PRN (19:00)
[2020-04-02] MEDS: Acetaminophen/oxyCODONE 325-5 MG Tab PO PRN ×4 (00:18→13:11)
--- NOTE | 2020-04-02 07:08 | PCM.PNPP ---
- General Info Date of Service: 04/02/20 Functional Status: Reports: Pain Controlled, Tolerating Diet, Ambulating, Urinating - Review of Systems General: Reports: No Symptoms Pulmonary: Reports: No Symptoms Cardiovascular: Reports: No Symptoms Gastrointestinal: Reports: Abdominal Pain (managed with medications ) Genitourinary: Reports: No Symptoms Musculoskeletal: Reports: No Symptoms Neurological: Reports: No Symptoms - Patient Data Vital Signs - Most Recent: Last Vital Signs Temp 36.5 C 04/02/20 04:12 Pulse 55 L 04/02/20 04:12 Resp 15 04/02/20 04:12 BP 95/51 L 04/02/20 04:12 Pulse Ox 99 04/02/20 04:12 Weight - Most Recent: 82.1 kg I&O - Last 24 Hours: Intake & Output 04/01/20 04/02/20 04/02/20 22:59 06:59 14:59 Output Total 300 Balance -300 Lab Results - Last 24 Hours: Laboratory Results - last 24 hr 04/01/20 Range/Units 16:26 WBC 4.65 (3.98-10.04) K/mm3 RBC 3.84 L (3.98-5.22) M/mm3 Hgb 9.3 L (11.2-15.7) gm/dl Hct 30.3 L (34.1-44.9) % MCV 78.9 L (79.4-94.8) fl MCH 24.2 L (25.6-32.2) pg MCHC 30.7 L (32.2-35.5) g/dl Plt Count 92 L (182-369) K/mm3 Med Orders - Current: Current Medications Diphenhydramine HCl (Benadryl) 25 mg IVPUSH Q6H PRN PRN Reason: Itching or Nausea Docusate Sodium (Colace) 100 mg PO Q12H PRN PRN Reason: Constipation Naloxone HCl (Narcan) 0.1 mg IVPUSH SEECOMMENT PRN PRN Reason: Respiratory Depression Ondansetron HCl (Zofran) 4 mg IV Q8H PRN PRN Reason: Nausea/Vomiting Oxycodone/Acetaminophen (Percocet 325-5 Mg) 1 tab PO Q4H PRN PRN Reason: Pain (moderate 4-6) Last Admin: 04/01/20 07:26 Dose: 1 tab Documented by: Oxycodone/Acetaminophen (Percocet 325-5 Mg) 2 tab PO Q4H PRN PRN Reason: Pain (severe 7-10) Last Admin: 04/02/20 04:14 Dose: 2 tab Documented by: Discontinued Medications Cefazolin Sodium (Ancef) Confirm Administered Dose 0 gm .ROUTE .STK-MED ONE Stop: 03/31/20 17:26 Citric Acid/Sodium Citrate (Bicitra Solution) 30 ml PO ONETIME ONE Stop: 03/31/20 16:59 Last Admin: 03/31/20 17:18 Dose: 30 ml Documented by: Diphenhydramine HCl (Benadryl) 25 mg IVPUSH Q6H PRN PRN Reason: Pruritis Ephedrine Sulfate (Ephedrine 25 Mg/5 Ml Syringe) Confirm Administered Dose 25 mg IV .STK-MED ONE Stop: 03/31/20 17:26 Ephedrine Sulfate (Ephedrine 25 Mg/5 Ml Syringe) Confirm Administered Dose 25 mg IV .STK-MED ONE Stop: 03/31/20 18:52 Fentanyl (Sublimaze) 50 mcg IVPUSH Q5M PRN PRN Reason: Pain Fentanyl (Sublimaze) Confirm Administered Dose 100 mcg .ROUTE .STK-MED ONE Stop: 03/31/20 17:26 Lactated Ringer's (Ringers, Lactated) 1,000 mls @ 125 mls/hr IV ASDIRECTED [facility] Last Admin: 03/31/20 17:10 Dose: 125 mls/hr Documented by: Cefazolin Sodium/Dextrose 2 gm (/ Premix) 50 mls @ 100 mls/hr IV ONETIME ONE Stop: 03/31/20 17:27 Last Admin: 03/31/20 17:19 Dose: 100 mls/hr Documented by: Oxytocin/Lactated Ringer's (Pitocin In Lr 10 Units/1,000 Ml) 10 unit in 1,000 mls @ 100 mls/hr IV ASDIRECTED [facility]; Protocol Lactated Ringer's (Ringers, Lactated) 1,000 mls @ 125 mls/hr IV ASDIRECTED [facility] Dextrose/Lactated Ringer's (Dextrose 5%-Lactated Ringers) 1,000 mls @ 125 mls/hr IV ASDIRECTED [facility] Stop: 04/01/20 03:49 Last Admin: 03/31/20 21:36 Dose: 125 mls/hr Documented by: Ibuprofen (Motrin) 600 mg PO Q6H PRN PRN Reason: mild pain or fever Ketorolac Tromethamine (Toradol) 30 mg IVPUSH Q6H [facility] Stop: 04/01/20 13:01 Last Admin: 04/01/20 01:18 Dose: 30 mg Documented by: Lidocaine/Sodium Bicarbonate (Buffered Lidocaine 1% In Ns 8.4%) 0.25 ml IDERM ONETIME PRN PRN Reason: Prior to IV Start Metoclopramide HCl (Reglan) 10 mg IVPUSH ONETIME ONE Stop: 03/31/20 16:59 Last Admin: 03/31/20 17:19 Dose: 10 mg Documented by: Morphine Sulfate (Duramorph Pf) Confirm Administered Dose 10 mg .ROUTE .STK-MED ONE Stop: 03/31/20 17:26 Ondansetron HCl (Zofran) 4 mg IVPUSH ONETIME PRN PRN Reason: Nausea/Vomiting Oxytocin (Pitocin) Confirm Administered Dose 20 unit .ROUTE .STK-MED ONE Stop: 03/31/20 17:26 Sodium Chloride (Saline Flush) 10 ml FLUSH ASDIRECTED PRN PRN Reason: Keep Vein Open Sodium Chloride (Saline Flush) 10 ml FLUSH ASDIRECTED PRN PRN Reason: Keep Vein Open - Infant Interaction Disposition, : in Room with Family Feeding: Bottle Fed Infant Support Person: - Recovery Exam Fundal Tone: Firm Fundal Level: 1 Fingerbreadths Below Umbilicus Fundal Placement: Midline Lochia Amount: Scant, Small Lochia Color: Rubra/Red Perineum Description: Intact, Minimal Bruising/Swelling Episiotomy/Laceration: None Bladder Status: Voiding Urinary Elimination: Voided - Exam General: Alert, Oriented, Cooperative Lungs: Clear to Auscultation, Normal Respiratory Effort Cardiovascular: Regular Rate, Regular Rhythm GI/Abdominal Exam: Soft, Tender (appropriate) Extremities: Normal Inspection Skin: Warm, Dry, Intact Wound/Incisions: Healing Well, No Drainage - Problem List & Annotations (1) COVID-19 affecting in third trimester SNOMED Code(s): 895010908, 561035454 Code(s): O98.513 - OTHER VIRAL DISEASES COMPLICATING , THIRD TRIMESTER; U07.1 - COVID-19 Status: Acute Current Visit: Yes (2) 38 weeks gestation of SNOMED Code(s): 25322850 Code(s): Z3A.38 - 38 WEEKS GESTATION OF Status: Acute Current Visit: No (3) H/O section SNOMED Code(s): 851321398 Code(s): Z98.891 - HISTORY OF UTERINE SCAR FROM PREVIOUS SURGERY Status: Acute Current Visit: No (4) Rh negative state in antepartum period SNOMED Code(s): 304335371 Code(s): O26.899 - OTH RELATED CONDITIONS, UNSPECIFIED TRIMESTER; Z67.91 - UNSPECIFIED BLOOD TYPE, RH NEGATIVE Status: Acute Current Visit: Yes (5) GBS (group B Streptococcus carrier), +RV culture, currently SNOMED Code(s): 8862885258088, 410148187, 6175142894340 Code(s): O99.820 - STREPTOCOCCUS B CARRIER STATE COMPLICATING St atus: Acute Current Visit: Yes (6) Thrombocytopenia SNOMED Code(s): 272596492 Code(s): D69.6 - THROMBOCYTOPENIA, UNSPECIFIED Status: Acute Current Visit: Yes - Problem List Review Problem List Initiated/Reviewed/Updated: Yes - My Orders Last 24 Hours: My Active Orders 04/01/20 18:53 Urinary Catheter Removal [RC] Per Unit Routine - Assessment Assessment:: POD#2 - Plan Plan:: * Routine cares * Patient's confirmation COVID testing did return positive. Will arrange a home monitoring kit for patient given risk factor of recent surgery * Bottle feeding * Follow up with Dr. Martinez in 3 weeks
--- NOTE | 2020-04-02 07:11 | PCM.DCSUM1 ---
Discharge Summary - Discharge Data Discharge Date: 04/02/20 Discharge Disposition: Home, Self-Care 01 Condition: Good - Referral to Home Health Primary Care Physician: Kat Martinez MD - Discharge Diagnosis/Problem(s) (1) COVID-19 affecting in third trimester SNOMED Code(s): 962151537, 355504367 ICD Code: O98.513 - OTHER VIRAL DISEASES COMPLICATING , THIRD TRIMESTER; U07.1 - COVID-19 Status: Acute Current Visit: Yes (2) 38 weeks gestation of SNOMED Code(s): 04504166 ICD Code: Z3A.38 - 38 WEEKS GESTATION OF Status: Acute Current Visit: No (3) H/O section SNOMED Code(s): 762601342 ICD Code: Z98.891 - HISTORY OF UTERINE SCAR FROM PREVIOUS SURGERY Status: Acute Current Visit: No (4) Rh negative state in antepartum period SNOMED Code(s): 111502923 ICD Code: O26.899 - OTH RELATED CONDITIONS, UNSPECIFIED TRIMESTER; Z67.91 - UNSPECIFIED BLOOD TYPE, RH NEGATIVE Status: Acute Current Visit: Yes (5) GBS (group B Streptococcus carrier), +RV culture, currently SNOMED Code(s): 4558869758361, 071774197, 2777631595392 ICD Code: O99.820 - STREPTOCOCCUS B CARRIER STATE COMPLICATING Status: Acute Current Visit: Yes (6) Thrombocytopenia SNOMED Code(s): 066248136 ICD Code: D69.6 - THROMBOCYTOPENIA, UNSPECIFIED Status: Acute Current Visit: Yes - Patient Summary/Data Operative Procedure(s) Performed: Repeat low transverse with vacuum a ssistance Complications: None Consults: None Recommended Follow-up Testing/Procedures: Follow up in 3 weeks for check Hospital Course: 24 y/o at 38 4/7 wks who presented for concerns of contractions / labor. In assessment was found to be COVID positive on screening. While not overtly in labor decision made to proceed with RLTCS given gestational age and positive screening in case patient would become more ill/symptomatic. Surgery uncomplicated. See procedure note. did well. Did have state confirmatory testing return positive for COVID. Was discharged home on POD#2 with home monitoring system and to follow up in 3 weeks in office. Also noted to have thrombocytopenia on admission c/w labs done at 28 wks. Will plan Hematology referral on discharge - Patient Instructions Diet: Regular Diet as Tolerated Activity: No Lifting Over 10 Pounds Activity, Other: Pelvic rest for 6 weeks Driving: Do Not Drive (While taking narcotics ) Showering/Bathing: May Shower, No Tub Bathing/Swimming Wound/Incision Care: Keep Operative Site/Wound Site Clean and Dry Notify Provider of: Fever, Increased Pain, Swelling and Redness, Drainage, Nausea and/or Vomiting - Discharge Plan *PRESCRIPTION DRUG MONITORING PROGRAM REVIEWED*: No *COPY OF PRESCRIPTION DRUG MONITORING REPORT IN PATIENT AMADOR: No Prescriptions/Med Rec: Acetaminophen/oxyCODONE [Percocet 325-5 MG] 1 - 2 tab PO Q4H PRN #25 tablet PRN Reason: Pain (Severe 7-10) Home Medications: Home Meds Prenat 115/Iron Fum/Folic/Dss [ 19 Tablet] 1 tab PO DAILY 08/19/19 [History] Acetaminophen/oxyCODONE [Percocet 325-5 MG] 1 - 2 tab PO Q4H PRN #25 tablet 04/02/20 [Rx] Docusate Sodium [Colace] 100 mg PO Q12H PRN cap 04/02/20 [Rx] Patient Handouts: COVID-19 Frequently Asked Questions, Coronavirus Information 09/25/19, Prevent the Spread of COVID-19 if You Are Sick - [facility] Referrals: Kat Martinez MD [Primary Care Provider] - (3 weeks for check ) - Discharge Summary/Plan Comment DC Time >30 min.: No - Patient Data Vitals - Most Recent: Last Vital Signs Temp 36.5 C 04/02/20 04:12 Pulse 55 L 04/02/20 04:12 Resp 15 04/02/20 04:12 BP 95/51 L 04/02/20 04:12 Pulse Ox 99 04/02/20 04:12 Weight - Most Recent: 82.1 kg I&O - Last 24 hours: Intake & Output 04/01/20 04/02/20 04/02/20 22:59 06:59 14:59 Output Total 300 Balance -300 Lab Results - Last 24 hrs: Laboratory Results - last 24 hr 04/01/20 Range/Units 16:26 WBC 4.65 (3.98-10.04) K/mm3 RBC 3.84 L (3.98-5.22) M/mm3 Hgb 9.3 L (11.2-15.7) gm/dl Hct 30.3 L (34.1-44.9) % MCV 78.9 L (79.4-94.8) fl MCH 24.2 L (25.6-32.2) pg MCHC 30.7 L (32.2-35.5) g/dl Plt Count 92 L (182-369) K/mm3 Med Orders - Current: Current Medications Diphenhydramine HCl (Benadryl) 25 mg IVPUSH Q6H PRN PRN Reason: Itching or Nausea Docusate Sodium (Colace) 100 mg PO Q12H PRN PRN Reason: Constipation Naloxone HCl (Narcan) 0.1 mg IVPUSH SEECOMMENT PRN PRN Reason: Respiratory Depression Ondansetron HCl (Zofran) 4 mg IV Q8H PRN PRN Reason: Nausea/Vomiting Oxycodone/Acetaminophen (Percocet 325-5 Mg) 1 tab PO Q4H PRN PRN Reason: Pain (moderate 4-6) Last Admin: 04/01/20 07:26 Dose: 1 tab Documented by: Oxycodone/Acetaminophen (Percocet 325-5 Mg) 2 tab PO Q4H PRN PRN Reason: Pain (severe 7-10) Last Admin: 04/02/20 04:14 Dose: 2 tab Documented by: Discontinued Medications Cefazolin Sodium (Ancef) Confirm Administered Dose 0 gm .ROUTE .STK-MED ONE Stop: 03/31/20 17:26 Citric Acid/Sodium Citrate (Bicitra Solution) 30 ml PO ONETIME ONE Stop: 03/31/20 16:59 Last Admin: 03/31/20 17:18 Dose: 30 ml Documented by: Diphenhydramine HCl (Benadryl) 25 mg IVPUSH Q6H PRN PRN Reason: Pruritis Ephedrine Sulfate (Ephedrine 25 Mg/5 Ml Syringe) Confirm Administered Dose 25 mg IV .STK-MED ONE Stop: 03/31/20 17:26 Ephedrine Sulfate (Ephedrine 25 Mg/5 Ml Syringe) Confirm Administered Dose 25 mg IV .STK-MED ONE Stop: 03/31/20 18:52 Fentanyl (Sublimaze) 50 mcg IVPUSH Q5M PRN PRN Reason: Pain Fentanyl (Sublimaze) Confirm Administered Dose 100 mcg .ROUTE .STK-MED ONE Stop: 03/31/20 17:26 Lactated Ringer's (Ringers, Lactated) 1,000 mls @ 125 mls/hr IV ASDIRECTED [facility] Last Admin: 03/31/20 17:10 Dose: 125 mls/hr Documented by: Cefazolin Sodium/Dextrose 2 gm (/ Premix) 50 mls @ 100 mls/hr IV ONETIME ONE Stop: 03/31/20 17:27 Last Admin: 03/31/20 17:19 Dose: 100 mls/hr Documented by: Oxytocin/Lactated Ringer's (Pitocin In Lr 10 Units/1,000 Ml) 10 unit in 1,000 mls @ 100 mls/hr IV ASDIRECTED [facility]; Protocol Lactated Ringer's (Ringers, Lactated) 1,000 mls @ 125 mls/hr IV ASDIRECTED [facility] Dextrose/Lactated Ringer's (Dextrose 5%-Lactated Ringers) 1,000 mls @ 125 mls /hr IV ASDIRECTED [facility] Stop: 04/01/20 03:49 Last Admin: 03/31/20 21:36 Dose: 125 mls/hr Documented by: Ibuprofen (Motrin) 600 mg PO Q6H PRN PRN Reason: mild pain or fever Ketorolac Tromethamine (Toradol) 30 mg IVPUSH Q6H [facility] Stop: 04/01/20 13:01 Last Admin: 04/01/20 01:18 Dose: 30 mg Documented by: Lidocaine/Sodium Bicarbonate (Buffered Lidocaine 1% In Ns 8.4%) 0.25 ml IDERM ONETIME PRN PRN Reason: Prior to IV Start Metoclopramide HCl (Reglan) 10 mg IVPUSH ONETIME ONE Stop: 03/31/20 16:59 Last Admin: 03/31/20 17:19 Dose: 10 mg Documented by: Morphine Sulfate (Duramorph Pf) Confirm Administered Dose 10 mg .ROUTE .STK-MED ONE Stop: 03/31/20 17:26 Ondansetron HCl (Zofran) 4 mg IVPUSH ONETIME PRN PRN Reason: Nausea/Vomiting Oxytocin (Pitocin) Confirm Administered Dose 20 unit .ROUTE .[employer] ONE Stop: 03/31/20 17:26 Sodium Chloride (Saline Flush) 10 ml FLUSH ASDIRECTED PRN PRN Reason: Keep Vein Open Sodium Chloride (Saline Flush) 10 ml FLUSH ASDIRECTED PRN PRN Reason: Keep Vein Open
[2020-04-02 09:49] VITALS: BP 102/77; PULSE 66
== END 2020-04-02 15:00 | disposition home or self-care (01) | DRG 786 ==
LOC: JD.OBCHECK 15:34 → JD.OB 15:44 → JD.OBCHECK 16:29 → JD.OB 16:30
PROVIDERS: ADMIT Obstetrics & Gynecology; ATTEND Obstetrics & Gynecology
PROC: 10D00Z1 Extraction of Products of Conception, Low, Open Approach (ICD-10-PCS; principal; 2020-03-31)
DX: O34.211 Maternal care for low transverse scar from previous cesarean delivery (principal); U07.1 COVID-19; O98.52 Other viral diseases complicating childbirth; O99.12 Other diseases of the blood and blood-forming organs and certain disorders involving the immune mechanism complicating childbirth; D69.6 Thrombocytopenia, unspecified; O99.824 Streptococcus B carrier state complicating childbirth; Z3A.38 38 weeks gestation of pregnancy; Z37.0 Single live birth
CPT/HCPCS: 01961; 36415; 59025; 84112; 85027; 86592; 86850; 86870; 86900; 86901; 86922; 94762; A9270-GY; J0171; J0690; J1885; J2270; J2590; J2765; J3010; J7120; J7121; U0002

== ENCOUNTER 2022-02-14 15:50 | Emergency (ER) | payer SELFPAY ==
[2022-02-14 16:02] VITALS: BP 122/84; PULSE 98
[2022-02-14] MEDS ORDERED: diphenhydrAMINE 50 MG/ML SDV IVPUSH ONE (16:46)
[2022-02-14] MEDS ORDERED: Sodium Chloride 0.9% 10 ML Syringe FLUSH PRN (16:46)
[2022-02-14] MEDS ORDERED: Prochlorperazine 10 MG/2 ML SDV IVPUSH ONE (16:46)
[2022-02-14] MEDS ORDERED: Ketorolac 30 MG/ML SDV IVPUSH ONE (16:46)
== END 2022-02-14 18:10 | disposition home or self-care (01) ==
LOC: JD.ED 15:50
DX: G43.909 Migraine, unspecified, not intractable, without status migrainosus (principal); Z88.0 Allergy status to penicillin; Z79.899 Other long term (current) drug therapy
CPT/HCPCS: 96374; 96375; 99283; J0780; J1200; J1885; J3490

== ENCOUNTER 2023-08-03 20:22 | Emergency (ER) | payer OTHER ==
[2023-08-03] MEDS ORDERED: Sodium Chloride 0.9% 10 ML Syringe FLUSH PRN (23:11)
[2023-08-03] MEDS ORDERED: Sodium Chloride 0.9% 1,000 ML IV SCH (23:15)
[2023-08-03] MEDS ORDERED: Aluminum Hydroxide/Magnesium Hydroxide/Simethicone Susp 30 ML Cup PO ONE (23:16)
[2023-08-03] MEDS ORDERED: Famotidine 20 MG/2 ML SDV IVPUSH ONE (23:16)
[2023-08-03 23:39] LABS: APPEARANCE,URINE CLEAR (Clear); BASOPHILS PERCENT AUTO 0.4 % (0.0-1.0); BILIRUBIN,URINE NEGATIVE (Negative); COLOR,URINE YELLOW (Yellow); EOSINOPHILS PERCENT AUTO 0.9 % (0.0-6.0); GLUCOSE,URINE NEGATIVE (Negative); HEMATOCRIT 38.2 % (37.0-47.0); IMMATURE GRAN ABSOLUTE AUTO 0.01 K/mm3 (0.00-0.05); IMMATURE GRAN PERCENT AUTO 0.2 % (0.0-0.4); KETONES,URINE 2+ (Negative); LEUKOCYTE ESTERASE,URINE TRACE (Negative); LYMPHOCYTES ABSOLUTE AUTO 1.5 K/mm3 (1.0-4.8); LYMPHOCYTES PERCENT AUTO 31.4 % (24.0-44.0); MEAN CORPUSCULAR HEMOGLOBIN 27.8 pg (28.0-32.0); MEAN CORPUSCULAR VOLUME 81.6 fl (83.0-99.0); MEAN PLATELET VOLUME 12.6 fl (9.4-12.3); MONOCYTES ABSOLUTE AUTO 0.5 K/mm3 (0.0-0.8); MONOCYTES PERCENT AUTO 9.7 % (0.0-8.0); NEUTROPHILS ABSOLUTE AUTO 2.7 K/mm3 (1.8-7.7); NEUTROPHILS PERCENT AUTO 57.4 % (41.0-71.0); NITRITE,URINE NEGATIVE (Negative); OCCULT BLOOD,URINE NEGATIVE (Negative); PH,URINE 5.5 (5.0-8.0); PLATELET COUNT,PLT 151 K/mm3 (150-400); PROTEIN,URINE NEGATIVE (Negative); RED BLOOD CELL COUNT 4.68 M/mm3 (4.10-5.30); UROBILINOGEN,URINE 0.2 (0.2-1.0); WHITE BLOOD CELL COUNT,WBC 4.65 K/mm3 (3.9-11.3)
[2023-08-03 23:55] LABS: BACTERIA,URINE FEW /hpf (FEW); EPITHELIAL CELLS,URINE 0-5 /hpf (0-5); MUCUS,URINE FEW /hpf (FEW); RBC,URINE 0-5 /hpf (0-5)
[2023-08-04] LABS: A/G RATIO 1.1 (1-2); ALBUMIN 3.8 g/dl (3.4-5.0); ANION GAP 15.6 (5-15); BILIRUBIN TOTAL 2.4 mg/dL (0.2-1.0); BUN/CREATININE RATIO 12.5 (14-18); CALCIUM 9.2 mg/dL (8.5-10.1); CREATININE 0.8 mg/dL (0.55-1.02); EST CRCL DRUG DOSING (CG) 95.05 mL/min; POTASSIUM,K 3.6 mEq/L (3.5-5.1); PROTEIN TOTAL,TP 7.2 g/dl (6.4-8.2)
[2023-08-04 01:20] VITALS: BP 116/81; PULSE 61
== END 2023-08-04 01:00 | disposition home or self-care (01) ==
LOC: JD.ED 20:22
DX: K29.00 Acute gastritis without bleeding (principal); Z88.0 Allergy status to penicillin; Z79.899 Other long term (current) drug therapy
CPT/HCPCS: 36415; 80053; 81001; 83690; 84703; 85025; 96361; 96374; 99283; 99284-25; A9270-GY; J3490; J7030

== ENCOUNTER 2023-08-10 07:21 | Emergency (ER) | payer SELFPAY ==
[2023-08-10] MEDS ORDERED: Ketorolac 30 MG/ML SDV IVPUSH ONE (07:35)
[2023-08-10] MEDS ORDERED: Sodium Chloride 0.9% 1,000 ML IV ONE (07:35)
[2023-08-10] MEDS ORDERED: Ondansetron 4 MG/2 ML SDV IVPUSH ONE ×2 (07:35→09:56)
[2023-08-10 08:09] LABS: HEMATOCRIT 40.4 % (37.0-47.0); HEMOGLOBIN 13.7 gm/dl (12.0-16.0); MEAN CORPUSCULAR HEMOGLOBIN 27.7 pg (28.0-32.0); MEAN CORPUSCULAR HGB CONC 33.9 g/dl (32.0-36.0); MEAN CORPUSCULAR VOLUME 81.6 fl (83.0-99.0); MEAN PLATELET VOLUME 12.5 fl (9.4-12.3); PLATELET COUNT,PLT 131 K/mm3 (150-400); RED BLOOD CELL COUNT 4.95 M/mm3 (4.10-5.30); WHITE BLOOD CELL COUNT,WBC 3.36 K/mm3 (3.9-11.3)
[2023-08-10 08:35] LABS: A/G RATIO 1.2 (1-2); ANION GAP 14.5 (5-15); BILIRUBIN TOTAL 1.1 mg/dL (0.2-1.0); CALCIUM 9.1 mg/dL (8.5-10.1); CREATININE 0.9 mg/dL (0.55-1.02); EST CRCL DRUG DOSING (CG) 84.49 mL/min; POTASSIUM,K 3.5 mEq/L (3.5-5.1); PROTEIN TOTAL,TP 7.4 g/dl (6.4-8.2)
[2023-08-10 09:08] LABS: APPEARANCE,URINE SLT CLOUDY (Clear); BILIRUBIN,URINE NEGATIVE (Negative); COLOR,URINE YELLOW (Yellow); GLUCOSE,URINE NEGATIVE (Negative); KETONES,URINE NEGATIVE (Negative); LEUKOCYTE ESTERASE,URINE NEGATIVE (Negative); NITRITE,URINE NEGATIVE (Negative); OCCULT BLOOD,URINE 3+ (Negative); PH,URINE 8.5 (5.0-8.0); PROTEIN,URINE 1+ (Negative); UROBILINOGEN,URINE 0.2 (0.2-1.0)
[2023-08-10] MEDS ORDERED: Morphine 2 MG/ML SYRINGE IVPUSH ONE (09:55)
[2023-08-10] MEDS ORDERED: Iopamidol 612 MG/ML 100 ML Bottle IVPUSH ONE (10:28)
[2023-08-10] MEDS ORDERED: Sodium Chloride 0.9% 10 ML Syringe FLUSH ONE (10:28)
[2023-08-10 11:30] LABS: BACTERIA,URINE FEW /hpf (FEW); MUCUS,URINE FEW /hpf (FEW); WBC,URINE 0-5 /hpf (0-5)
[2023-08-10] MEDS ORDERED: Morphine 4 MG/ML Syringe IVPUSH ONE ×2 (12:10→15:17)
[2023-08-10 18:08] VITALS: BP 98/72; PULSE 69
== END 2023-08-10 17:45 | disposition home or self-care (01) ==
LOC: JD.ED 07:21
DX: R10.2 Pelvic and perineal pain (principal); Z88.0 Allergy status to penicillin; Z86.16 Personal history of COVID-19
CPT/HCPCS: 36415; 74177; 76705; 80053; 81001; 81025; 83690; 85027; 96361; 96374; 96375; 96376; 99284; J1885; J2270; J2405; J3490; J7030; Q9967; 99283